=== PATIENT | female | born 1960 | race Caucasian/White ===

== ENCOUNTER → 2017-07-05 | Outpatient (CLI) | payer MEDICARE, OTHER ==
[2017-07-05 15:01] LABS: Anisocytosis Slight; CH 27.2; CHCM 30.9; HCT 40.9 % (34.0-46.0); HDW 2.64; HGB 12.9 gm/dL (11.4-16.0); Hypochromasia Slight; MCH 27.9 pg (25.0-35.0); MCHC 31.5 g/dL (31.0-37.0); MCV 88.5 fL (80.0-100.0); Mean Platelet Volume 7.2; RBC 4.62 m/uL (3.80-5.40); RDW 16.5 % (11.5-15.5); WBC 10.6 k/uL (3.8-10.6)
[2017-07-05 15:16] LABS: Anion Gap 11 mmol/L; Blood Urea Nitrogen 13 mg/dL (7-17); Carbon Dioxide 27 mmol/L (22-30); Chloride 102 mmol/L (98-107); Non-African American GFR(MDRD) >60 (>60 ml/min/1.73 sqM); Potassium 4.6 mmol/L (3.5-5.1); Sodium 140 mmol/L (137-145)
== END | disposition home or self-care (01) ==
LOC: LABPAT 14:07
PROVIDERS: ATTEND Internal Medicine Cardiovascular Disease
DX: Z01.812 Encounter for preprocedural laboratory examination (principal); I35.0 Nonrheumatic aortic (valve) stenosis
CPT/HCPCS: 36415; 80051; 82565; 84520; 85027

== ENCOUNTER 2017-07-13 10:52 | Day surgery (SDC) | payer MEDICARE, OTHER ==
[2017-07-08 13:29] VITALS: BMI 44.6
[2017-07-13] MEDS ORDERED: SODIUM CHLORIDE 0.9% 500 ML IV ONE (11:11)
[2017-07-13 11:15] VITALS: TEMP 98.7
[2017-07-13] MEDS ORDERED: fentaNYL (PF) 50 MCG/ML 2 ML AMP ONE (12:12)
[2017-07-13] MEDS ORDERED: MIDAZOLAM 2 MG/2 ML VIAL ONE (12:12)
[2017-07-13] MEDS ORDERED: BENZOCAINE SPRAY 1 SPRAY CAN MUCOUS MEM ONE (12:30)
[2017-07-13] MEDS ORDERED: MIDAZOLAM 2 MG/2 ML VIAL IV ONE (12:43)
[2017-07-13] MEDS ORDERED: fentaNYL (PF) 50 MCG/ML 2 ML AMP IV ONE (12:43)
[2017-07-13] MEDS: MIDAZOLAM 2 MG/2 ML VIAL IV ONE ×2 (12:45→12:47)
[2017-07-13 13:20] LABS: Glucose,Whole Blood 103 mg/dL (75-99)
[2017-07-13 13:43] VITALS: PULSE 82
[2017-07-13 13:58] VITALS: BP 149/65; RESP 16
--- NOTE | 2017-07-22 15:34 | ECHOT ---
TRANSESOPHAGEAL ECHOCARDIOGRAM TRANSESOPHAGEAL ECHOCARDIOGRAM REPORT: DATE OF SERVICE: 07/13/2017 This transesophageal echocardiogram was performed to evaluate the patient's ejection systolic murmur of aortic stenosis. Patient was given intravenous sedation with Versed and fentanyl and transesophageal echocardiogram was performed without any complications. Left ventricular chamber is normal in size with normal left ventricular systolic function. Mitral valve morphology is normal. Aortic valve is mildly thickened but aortic valve opening is normal and no valvular aortic stenosis was noted. The aortic valve is tricuspid. The tricuspid valve morphology is normal. The intra- atrial septum is intact and there is no evidence of PFO by saline contrast study. Color Doppler study shows evidence of mild degree of mitral regurgitation. That is with evidence of flow in the left ventricular outflow tract with a suggestion of a subaortic membrane. There is a minimal aortic regurgitation noted. Mild tricuspid regurgitation is noted. The transthoracic Doppler study again shows gradient of about 30-35 mmHg in the left ventricular outflow tract. FINAL IMPRESSION: 1. This study shows evidence of turbulence of flow in the left ventricular outflow tract with a gradient of about 30 mmHg in the left ventricular outflow tract. 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 There is no evidence of asymmetric septal hypertrophy. 2. Aortic valve is mildly thickened and is tricuspid valve. There is no evidence of valvular aortic stenosis. 3. Mitral and tricuspid valve morphology is normal. 4. Left ventricular systolic function is normal. 5. There is no evidence of any PFO. MMODL / IJN: [id number] /
== END 2017-07-13 14:18 | disposition home health service (06) ==
LOC: CATHCVL 10:52 → EEVIPCON 12:00 → CATHCVL 14:18
PROVIDERS: ATTEND Internal Medicine Cardiovascular Disease
DX: I08.3 Combined rheumatic disorders of mitral, aortic and tricuspid valves (principal); G47.33 Obstructive sleep apnea (adult) (pediatric); F17.210 Nicotine dependence, cigarettes, uncomplicated; E11.9 Type 2 diabetes mellitus without complications; Z79.4 Long term (current) use of insulin; Z79.84 Long term (current) use of oral hypoglycemic drugs; E78.5 Hyperlipidemia, unspecified; Z82.3 Family history of stroke; F20.9 Schizophrenia, unspecified; E66.9 Obesity, unspecified; Z68.41 Body mass index [BMI] 40.0-44.9, adult; Z79.890 Hormone replacement therapy; Z79.899 Other long term (current) drug therapy
CPT/HCPCS: 93312; 93320; 93325; J2250; J3010

== ENCOUNTER → 2018-11-16 | Outpatient (CLI) | payer MEDICARE ==
--- NOTE | 2018-11-17 09:42 | US ---
EXAMINATION TYPE: US pelvis complete transvag DATE OF EXAM: 11/16/2018 COMPARISON: NONE CLINICAL HISTORY: R68.89 Abnormal pelvic exam. Assess for possible ascites per order TECHNIQUE: Transvaginal (TV) and Transabdominal (TA) . Transabdominal sonographic images of the abd omen were acquired and pelvis TA US attempted but bladder not full. Transvaginal sonographic images were medically necessary to better assess the following anatomy: uterus and ovaries Date of LMP: approximately age 46 EXAM MEASUREMENTS: US exam is technically limited due to large body habitus at HT5'9 and WT 260lbs. Assessment for Ascites: no ascites is seen in any abdominal quadrant or pelvic area. Uterus: 5.6 x 3.5 x 3.3 cm Endometrial Stripe: not able to discern endometrium due to heterogeneous uterus Right Ovary: not seen Left Ovary: not seen 1. Uterus: Anteverted and heterogeneous 2. Endometrium: not discreet 3. Right Ovary: not seen 4. Left Ovary: not seen 5. Bilateral Adnexa: wnl 6. Posterior cul-de-sac: wnl IMPRESSION: 1. Limited examination due to patient body habitus. 2. Endometrial stripe is not able to be visualized. 3. No ascites evident.
== END | disposition home or self-care (01) ==
LOC: RADUSWWP 15:22
PROVIDERS: ATTEND Obstetrics & Gynecology
DX: R68.89 Other general symptoms and signs (principal)
CPT/HCPCS: 76830; 76856

== ENCOUNTER 2023-05-22 16:33 | Inpatient (IN) | payer MEDICARE, OTHER ==
[2023-05-22 18:22] LABS: Anisocytosis Slight; Basophils % (A) 0 %; Eosinophils # (A) 0.2 k/uL (0-0.7); Eosinophils % (A) 2 %; HCT 43.5 % (34.0-46.0); HGB 13.4 gm/dL (11.4-16.0); Hypochromasia Marked; Lymphocytes % (A) 7 %; MCH 28.6 pg (25.0-35.0); MCHC 30.8 g/dL (31.0-37.0); MCV 92.6 fL (80.0-100.0); Monocytes # (A) 0.6 k/uL (0-1.0); Monocytes % (A) 4 %; Neutrophils # (A) 12.6 k/uL (1.3-7.7); Neutrophils % (A) 86 %; Platelet Count 153 k/uL (150-450); RBC 4.69 m/uL (3.80-5.40); RDW 16.3 % (11.5-15.5); WBC 14.6 k/uL (3.8-10.6)
--- NOTE | 2023-05-22 18:24 | ED ---
General Adult HPI - General Chief complaint: Altered Mental Status Stated complaint: Altered Mental Status Time Seen by Provider: 05/22/23 17:41 Source: EMS, RN notes reviewed, old records reviewed, Caregiver Mode of arrival: EMS Limitations: altered mental status - History of Present Illness Initial comments: Patient is a 62-year-old female who presents emergency Department for altered mental status. Was seen here last week for similar symptoms. Is complaining of what sounds like weeks long of altered mental status with increased falls. Has a history of diabetes. Presents from nursing facility. Patient's guardian is the primary historian for The patient. States that symptoms all started after starting prednisone last month. Has been having waxing and waning symptoms since then. Patient is currently at her baseline for the last few weeks but this is not her normal baseline. She is alert and oriented times one to 2 currently with periods of lucency. Unknown if this is secondary to medication changes. Unknown if this is secondary to other etiology at this time. Presents for further evaluation at this time. Patient is unable to provide any history. She is not on blood thinners. - Related Data Home Medications Medication Instructions Recorded Confirmed Fenofibrate,Micronized 134 mg PO DAILY@0600 07/08/17 05/22/23 [Fenofibrate] Gabapentin [Neurontin] 300 mg PO BID 07/08/17 05/22/23 Multivitamins, Thera [Multivitamin 1 tab PO DAILY 07/08/17 05/22/23 (formulary)] cloZAPine [Clozaril] 100 mg PO DAILY@1400 07/08/17 05/22/23 cloZAPine [Clozaril] 300 tab PO HS@2100 07/08/17 05/22/23 Acetaminophen [Tylenol] 650 mg PO Q6H PRN 05/15/23 05/22/23 Atorvastatin [Lipitor] 10 mg PO HS 05/15/23 05/22/23 Budesonide [Pulmicort] 0.5 mg INHALATION RT-BID 05/15/23 05/22/23 Cholecalciferol [Vitamin D3 (25 50 mcg PO DAILY 05/15/23 05/22/23 Mcg = 1000 Iu)] Cinacalcet HCl 30 mg PO DAILY 05/15/23 05/22/23 Famotidine [Pepcid] 20 mg PO BID 05/15/23 05/22/23 Insulin Lispro [humaLOG Kwikpen] See Protocol SQ QID 05/15/23 05/22/23 Ipratropium-Albuterol Nebulize 3 ml INHALATION RT-Q6H 05/15/23 05/22/23 [Duoneb 0.5 mg-3 mg/3 ml Soln] Nevis Carbonate [Lithobid] 900 mg PO DAILY 05/15/23 05/22/23 Metoprolol Tartrate [Lopressor] 12.5 mg PO TID@0600,1200,2100 05/15/23 05/22/23 Montelukast Sodium 10 mg PO HS 05/15/23 05/22/23 amLODIPine [Norvasc] 7.5 mg PO DAILY 05/15/23 05/22/23 bisacodyL [Dulcolax] 10 mg RECTAL DAILY PRN 05/15/23 05/22/23 cloZAPine [Clozaril] 50 mg PO BID@1400,2100 05/15/23 05/22/23 Allergies Allergy/AdvReac Type Severity Reaction Status Date / Time No Known Allergies Allergy Verified 07/08/17 11:15 Review of Systems ROS Statement: Those systems with pertinent positive or pertinent negative responses have been documented in the HPI. ROS Other: All systems not noted in ROS Statement are negative. Past Medical History Past Medical History: Diabetes Mellitus Additional Past Medical History / Comment(s): hx pneumonia History of Any Multi-Drug Resistant Organisms: None Reported Additional Past Surgical History / Comment(s): no previous surgeries Past Anesthesia/Blood Transfusion Reactions: No Reported Reaction Past Psychological History: Schizophrenia Past Alcohol Use History: None Reported Past Drug Use History: None Reported - Past Family History Mother Family Medical History: No Reported History General Exam - General Exam Comments Initial Comments: General: Appears in no acute distress. HEAD: Normal with no signs of head trauma. EYES: PERRLA, EOMI, conjunctiva normal, no discharge. Pupils are 3 mm and equal bilaterally. ENT: Hearing grossly intact, normal oropharynx. RESPIRATORY: Clear breath sounds bilaterally. No wheezes, rales, or rhonchi. C/V: Regular rate and rhythm. S1 and S2 auscultated, mild bilateral pitting edema, peripheral pulses 2+ and intact throughout ABD: Abd is soft, nontender, nondistended EXT: Normal range of motion, no obvious deformity. Pelvis is stable. No midline spinal tenderness to palpation. SKIN: No rashes or lesions observed on exposed skin. NEURO: Alert and oriented x 1-2 which is below her baseline. Moving all 4 extremities. Exam is difficult to complete secondary to patient's confusion. No obvious deficits. Limitations: altered mental status Course Vital Signs 05/22/23 05/22/23 05/22/23 16:42 16:48 19:52 Temperature 98.7 F Pulse Rate 75 87 79 Respiratory 18 20 20 Rate Blood Pressure 130/64 108/47 137/61 O2 Sat by Pulse 95 95 96 Oximetry Medical Decision Making - Medical Decision Making Was pt. sent in by a medical professional or institution (, PA, [employer], urgent care, hospital, or alf...) When possible be specific @ -Sent from nursing facility Did you speak to anyone other than the patient for history (EMS, parent, family, police, friend...)? What history was obtained from this source @ -Patient's guardian who provided most of the patient's past medical history. Did you review nursing and triage notes (agree or disagree)? Why? @ -I reviewed and agree with nursing and triage notes Were old charts reviewed (outside hosp., previous admission, EMS record, old EKG, old radiological studies, urgent care reports/EKG's, alf records)? Report findings @ -Reviewed visit from last week and her EMR as well as patient's charts from nursing facility. Differential Diagnosis (chest pain, altered mental status, abdominal pain women, abdominal pain men, vaginal bleeding, weakness, fever, dyspnea, syncope, headache, dizziness, GI bleed, back pain, seizure, CVA, palpatations, mental health, musculoskeletal)? @ -Differential Altered Mental Status: Hypoglycemia, DKA, hypercapnia, ETOH, overdose, CO poisoning, trauma, myxedema c annabelle, HTN encephalopathy, infection, encephalitis, psychosis, intercranial hemorrhage, hepatic encephalopathy, meningitis, CVA, this is not meant to be an all-inclusive list EKG interpreted by me (3pts min.). @ -As above X-rays interpreted by me (1pt min.). @ -Chest x-ray, pelvis x-ray reveals no obvious injury, no obvious acute cardiopulmonary process. CT interpreted by me (1pt min.). @ -CT brain and C-spine reveals no obvious acute intracranial process or cervical spine injury. U/S interpreted by me (1pt. min.). @ -None done What testing was considered but not performed or refused? (CT, X-rays, U/S, labs)? Why? @ -None What meds were considered but not given or refused? Why? @ -None Did you discuss the management of the patient with other professionals (professionals i.e. Dr., PA, [employer], lab, RT, psych nurse, social science analyst, commissioned sales associate, teacher, infantry weapons officer, case assistant)? Give summary @ -Discussed with ANASTASIA Navarro of [facility] accepted the patient. Was smoking cessation discussed for >3mins.? @ -No Was critical care preformed (if so, how long)? @ -No Were there social determinants of health that impacted care today? How? (Homelessness, low income, unemployed, alcoholism, drug addiction, transportation, low edu. Level, literacy, decrease access to med. care, fdc, rehab)? @ -No Was there de-escalation of care discussed even if they declined (Discuss DNR or withdrawal of care, Hospice)? DNR status @ -No What co-morbidities impacted this encounter? (DM, HTN, Smoking, COPD, CAD, Cancer, CVA, ARF, Chemo, Hep., AIDS, mental health diagnosis, sleep apnea, morbid obesity)? @ -None Was patient admitted / discharged? Hospital course, mention meds given and route, prescriptions, significant lab abnormalities, going to OR and other pertinent info. @ -Based on the patient's presentation and physical exam, presents with altered mental status. Unknown etiology. I do suspect medication related versus possible infectious. We will obtain broad workup including CT imaging considering she said multiple falls. Patient's guardian was in agreement this plan. Vital signs are within acceptable limits. Patient's labs are remarkable for a leukocytosis of 14 of unknown significance. Remainder of the labs are unremarkable. However urinalysis and VBG are still pending at this time. Imaging shows no signs of injury or acute process. EKG is unremarkable. At this time I would like to admit the patient and she is still confused. I spoke with the admitting team, ANASTASIA Navarro [facility] accepted the patient. Patient admitted in stable condition. Consulted neurology for evaluation. Undiagnosed new problem with uncertain prognosis? @ -No Drug Therapy requiring intensive monitoring for toxicity (Heparin, Nitro, Insulin, Cardizem)? @ -No Were any procedures done? @ -No Diagnosis/symptom? @ -Altered mental status of unknown etiology Acute, or Chronic, or Acute on Chronic? @ -Acute on chronic Uncomplicated (without systemic symptoms) or Complicated (systemic symptoms)? @ -Complicated Side effects of treatment? @ -No Exacerbation, Progression, or Severe Exacerbation? @ -No Poses a threat to life or bodily function? How? (Chest pain, [place], [place], pneumonia, PE, COPD, DKA, ARF, appy, cholecystitis, CVA, Diverticulitis, Homicidal, Suicidal, threat to staff... and all critical care pts) @ -Yes - Lab Data Result diagrams: 05/22/23 17:57 05/22/23 17:57 Lab Results 05/22/23 05/22/23 05/22/23 Range/Units 17:57 17:57 17:57 WBC 14.6 H (3.8-10.6) k/uL RBC 4.69 (3.80-5.40) m/uL Hgb 13.4 (11.4-16.0) gm/dL Hct 43.5 (34.0-46.0) % MCV 92.6 (80.0-100.0) fL MCH 28.6 (25.0-35.0) pg MCHC 30.8 L (31.0-37.0) g/dL RDW 16.3 H (11.5-15.5) % Plt Count 153 (150-450) k/uL MPV 9.0 Neutrophils % 86 % Lymphocytes % 7 % Monocytes % 4 % Eosinophils % 2 % Basophils % 0 % Neutrophils # 12.6 H (1.3-7.7) k/uL Lymphocytes # 1.0 (1.0-4.8) k/uL Monocytes # 0.6 (0-1.0) k/uL Eosinophils # 0.2 (0-0.7) k/uL Basophils # 0.0 (0-0.2) k/uL Hypochromasia Marked Anisocytosis Slight PT 12.0 (9.0-12.0) sec INR 1.2 H (<1.2) APTT 23.0 (22.0-30.0) sec Sodium 138 (137-145) mmol/L Potassium 4.1 (3.5-5.1) mmol/L Chloride 104 (98-107) mmol/L Carbon Dioxide 29 (22-30) mmol/L Anion Gap 5 mmol/L BUN 11 (7-17) mg/dL Creatinine 0.79 (0.52-1.04) mg/dL Est GFR (CKD-EPI)AfAm >90 (>60 ml/min/1.73 sqM) Est GFR (CKD-EPI)NonAf 81 (>60 ml/min/1.73 sqM) Glucose 151 H (74-99) mg/dL Calcium 8.4 (8.4-10.2) mg/dL Total Bilirubin 0.6 (0.2-1.3) mg/dL AST 29 (14-36) U/L ALT 33 (4-34) U/L Alkaline Phosphatase 80 (38-126) U/L Ammonia (<30) umol/L Troponin I (0.000-0.034) ng/mL NT-Pro-B Natriuret Pep 371 pg/mL Total Protein 5.6 L (6.3-8.2) g/dL Albumin 3.3 L (3.5-5.0) g/dL Serum Alcohol <10 mg/dL Influenza Type A (PCR) (Not Detectd) Influenza Type B (PCR) (Not Detectd) RSV (PCR) (Not Detectd) SARS-CoV-2 (PCR) (Not Detectd) 05/22/23 05/22/23 05/22/23 Range/Units 17:57 17:57 19:56 WBC (3.8-10.6) k/uL RBC (3.80-5.40) m/uL Hgb (11.4-16.0) gm/dL Hct (34.0-46.0) % MCV (80.0-100.0) fL MCH (25.0-35.0) pg MCHC (31.0-37.0) g/dL RDW (11.5-15.5) % Plt Count (150-450) k/uL MPV Neutrophils % % Lymphocytes % % Monocytes % % Eosinophils % % Basophils % % Neutrophils # (1.3-7.7) k/uL Lymphocytes # (1.0-4.8) k/uL Monocytes # (0-1.0) k/uL Eosinophils # (0-0.7) k/uL Basophils # (0-0.2) k/uL Hypochromasia Anisocytosis PT (9.0-12.0) sec INR (<1.2) APTT (22.0-30.0) sec Sodium (137-145) mmol/L Potassium (3.5-5.1) mmol/L Chloride (98-107) mmol/L Carbon Dioxide (22-30) mmol/L Anion Gap mmol/L BUN (7-17) mg/dL Creatinine (0.52-1.04) mg/dL Est GFR (CKD-EPI)AfAm (>60 ml/min/1.73 sqM) Est GFR (CKD-EPI)NonAf (>60 ml/min/1.73 sqM) Glucose (74-99) mg/dL Calcium (8.4-10.2) mg/dL Total Bilirubin (0.2-1.3) mg/dL AST (14-36) U/L ALT (4-34) U/L Alkaline Phosphatase (38-126) U/L Ammonia 12 (<30) umol/L Troponin I 0.019 (0.000-0.034) ng/mL NT-Pro-B Natriuret Pep pg/mL Total Protein (6.3-8.2) g/dL Albumin (3.5-5.0) g/dL Serum Alcohol mg/dL Influenza Type A (PCR) Not Detected (Not Detectd) Influenza Type B (PCR) Not Detected (Not Detectd) RSV (PCR) Not Detected (Not Detectd) SARS-CoV-2 (PCR) Not Detected (Not Detectd) - EKG Data -: EKG Interpreted by Me EKG Comments: 12-lead Electrocardiogram Interpretation Note EKG was reviewed and interpreted by myself. 12-lead ECG performed at 1643 is interpreted by me as revealing normal sinus rhythm at a rate of 77 beats per minute. Left axis deviation. MT interval is 195 ms, QRS duration is 130 ms, QTc is 459 ms.. There were no ST or T wave abnormalities to suggest myocardial ischemia or injury. R wave progression across the precordium was satisfactory. By my interpretation this EKG is non-diagnostic for acute ischemia. Disposition Clinical Impression: Altered mental status Disposition: ADMITTED IP TO THIS HOSP Condition: Serious Time of Disposition: 20:35
[2023-05-22 18:31] LABS: ALT 33 U/L (4-34); AST 29 U/L (14-36); African American GFR (CKD) >90 (>60 ml/min/1.73 sqM); Albumin 3.3 g/dL (3.5-5.0); Alcohol <10 mg/dL; Alkaline Phosphatase 80 U/L (38-126); Anion Gap 5 mmol/L; Blood Urea Nitrogen 11 mg/dL (7-17); Calcium 8.4 mg/dL (8.4-10.2); Carbon Dioxide 29 mmol/L (22-30); Chloride 104 mmol/L (98-107); Glucose 151 mg/dL (74-99); Non-African American GFR(CKD) 81 (>60 ml/min/1.73 sqM); Potassium 4.1 mmol/L (3.5-5.1); Sodium 138 mmol/L (137-145); Total Bilirubin 0.6 mg/dL (0.2-1.3); Total Protein 5.6 g/dL (6.3-8.2)
[2023-05-22 18:38] LABS: NT-Pro-B-Type Natriuretic Pept 371 pg/mL
[2023-05-22 18:39] LABS: INR 1.2 (<1.2)
--- NOTE | 2023-05-22 19:45 | CT ---
EXAMINATION TYPE: CT brain cspine wo con CT DLP: 1829.8 mGycm, Automated exposure control for dose reduction was used. DATE OF EXAM: 05/22/2023 7:39 PM COMPARISON: None.. CLINICAL INDICATION:Female, 62 years old with history of Altered mental status; Altered mental status TECHNIQUE: Brain: Multiple axial CT images of the brain were obtained without IV contrast. Cspine: Axial CT images from the skull base to the inferior aspect of T2 we obtained without intraven ous contrast. Coronal and sagittal reformatted images were also reviewed. FINDINGS: Brain: Extra-axial spaces: No abnormal extra-axial fluid collections. Ventricular system: Within normal limits Cerebral parenchyma: No acute intraparenchymal hemorrhage or mass effect. The kumar-white junction is well differentiated. Scattered hypoattenuating areas are seen within the white matter. Cerebellum: Unremarkable. Mass effect: No evidence of midline shift. Intracranial vasculature: Atherosclerotic calcifications of the intracranial vessels. Soft tissues: Normal. Calvarium/osseous structures: No depressed skull fracture. Benign hyperostosis frontalis noted. Paranasal sinuses and mastoid air cells: Clear. Visualized orbits: Bilateral proptosis. Cervical spine: Fracture: None. Osseous structures: Unremarkable Vertebral alignment: Within normal limits. Spinal canal/Neural Foramina: No evidence of significant spinal canal narrowing. No evidence for sign ificant neural foraminal stenosis. Neck soft tissues: Prevertebral soft tissues are within normal limits. Other: The airway is patent. The lung apices are clear. IMPRESSION: 1. No acute intracranial process. 2. Nonspecific white matter changes, likely secondary to chronic small vessel ischemic disease. 3. Bilateral proptosis. 4. No evidence of cervical spine fracture.
--- NOTE | 2023-05-22 19:48 | XR ---
EXAMINATION TYPE: XR chest 1V DATE OF EXAM: 05/22/2023 7:40 PM COMPARISON: Chest radiographs from 05/15/2023 TECHNIQUE: XR chest 1V Frontal view of the chest. CLINICAL INDICATION:Female, 62 years old with history of altered mental status; FINDINGS: Lungs/Pleura: There is no evidence of pleural effusion, focal consolidation, or pneumothorax. Pulmonary vascularity: Mild pulmonary vascular congestion. Heart/mediastinum: Cardiomediastinal silhouette is enlarged and stable. Musculoskeletal: No acute osseous pathology. Left shoulder arthropathy. IMPRESSION: Cardiomegaly and mild pulmonary vascular congestion. Correlate with BNP for congestive heart failure.
--- NOTE | 2023-05-22 19:49 | XR ---
EXAMINATION TYPE: XR pelvis AP view DATE OF EXAM: 05/22/2023 7:40 PM INDICATION: Patient age:Female; 62 years old; Reason for study: fall; [facility]. COMPARISON: None TECHNIQUE: The pelvis was examined in a single projection. FINDINGS: There is no evidence of fracture or dislocation. There is no soft tissue abnormality. No a bnormal calcifications are present. IMPRESSION: No acute osseous pathology.
[2023-05-22] MEDS ORDERED: NALOXONE 0.4 MG/ML 1 ML VIAL IV PRN (20:41)
[2023-05-22] MEDS ORDERED: LORazepam 2 MG/ML INJ IV STA (20:44)
[2023-05-22] MEDS ORDERED: DEXTROSE 50% SYRINGE 50 ML IVP PRN ×2 (21:19)
[2023-05-22] MEDS ORDERED: IPRATROPIUM-ALBUTEROL 3 ML NEB INHALATION PRN (21:20)
[2023-05-22 21:22] LABS: VBG PH 7.34 (7.31-7.41)
[2023-05-22 21:45] LABS: Appearance,Urine Clear (Clear); Color,Urine Yellow; PH, Urine 6.5 (5.0-8.0)
[2023-05-22 21:46] LABS: Bilirubin,Urine Negative (Negative); Blood,Urine Negative (Negative); Glucose,Urine (UA) Negative (Negative); Ketones,Urine Negative (Negative); Leukocyte Esterase,Urine Negative (Negative); Nitrite,Urine Negative (Negative); Protein,Urine Trace (Negative); Urobilinogen,Urine 0.2 mg/dL (<2.0)
[2023-05-22 21:51] LABS: Amphetamine Screen,Urine Not Detected (NotDetected); Barbiturate Screen,Urine Not Detected (NotDetected); Benzodiazepines Screen,Urine Not Detected (NotDetected); Cocaine Screen,Urine Not Detected (NotDetected); Methadone Screen, Urine Not Detected (NotDetected); Opiate Screen,Urine Not Detected (NotDetected); Oxycodone Screen, Urine Not Detected (NotDetected); Phencyclidine Screen,Urine Not Detected (NotDetected); Tricyclic Antidepressant,Urine Detected (NotDetected); Urn Cannabinoid Scrn Not Detected (NotDetected)
[2023-05-23] MEDS: METOPROLOL TARTRATE 12.5 MG TAB PO SCH ×4 (00:02→21:14)
[2023-05-23] MEDS ORDERED: IPRATROPIUM-ALBUTEROL 3 ML NEB INHALATION SCH (02:00)
[2023-05-23 06:19] LABS: Glucose,Whole Blood 181 mg/dL (70-110)
[2023-05-23] MEDS: INSULIN ASPART (NovoLOG) 100 UNIT/ML VIAL SQ SCH ×3 (06:52→17:00)
[2023-05-23] MEDS: SODIUM CHLORIDE 0.9% 1,000 ML IV SCH ×2 (06:53→07:59)
[2023-05-23] MEDS: amLODIPine 2.5 MG TAB PO SCH (07:58)
[2023-05-23] MEDS ORDERED: FAMOTIDINE 20 MG TAB PO SCH (09:00)
[2023-05-23] MEDS ORDERED: LITHIUM CARBONATE 300 MG CAP PO SCH (09:00)
[2023-05-23] MEDS: BUDESONIDE 0.5 MG/2 ML NEBU INHALATION SCH ×2 (09:01→21:11)
[2023-05-23] MEDS: IPRATROPIUM-ALBUTEROL 3 ML NEB INHALATION SCH ×4 (09:01→21:11)
[2023-05-23 10:00] LABS: Basophils # (A) 0.04 X 10*3/uL (0.00-0.10); Basophils % (A) 0.3 %; Eosinophils % (A) 1.7 %; HCT 45.2 % (37.2-46.3); HGB 13.1 d/dL (12.0-15.0); Lymphocytes % (A) 6.7 %; MCH 27.2 pg (27.0-32.0); MCV 93.8 FL (80.0-97.0); Mean Platelet Volume 11.7 FL (9.5-12.2); Monocytes # (A) 0.88 X 10*3/uL (0.20-1.00); Monocytes % (A) 7.3 %; NRBC Per 100 WBC 0 X 10*3/uL (0.00-0.01); Neutrophils # (A) 10.04 X 10*3/uL (1.80-7.70); Neutrophils % (A) 83.5 %; Platelet Count 152 X 10*3/uL (140-440); RBC 4.82 X 10*6/uL (4.10-5.20); RDW 17.2 % (11.5-14.5); WBC 12.02 X 10*3/uL (4.50-10.00)
[2023-05-23 10:07] LABS: BUN/Creat Ratio 9.88 Ratio (12.00-20.00); Blood Urea Nitrogen 7.9 mg/dL (9.0-27.0); Calcium 8.5 mg/dL (8.7-10.3); Carbon Dioxide 27.2 mmol/L (21.6-31.8); Chloride 107 mmol/L (96-109); Glucose 168 mg/dL (70-110); Potassium 4.2 mmol/L (3.5-5.5); Sodium 143 mmol/L (135-145)
[2023-05-23 11:45] LABS: Glucose,Whole Blood 147 mg/dL (70-110)
[2023-05-23] MEDS ORDERED: bisacodyL 10 MG SUPP RECTAL PRN (13:07)
[2023-05-23] MEDS ORDERED: FUROSEMIDE 10 MG/ML 4 ML VIAL IV STA (13:12)
--- NOTE | 2023-05-23 13:54 | HP ---
HISTORY AND PHYSICAL CHIEF COMPLAINT: Change in mental status. HISTORY OF PRESENT ILLNESS: This is a 62-year-old woman with a past medical history of multiple medical problems including asthma, diabetes mellitus, history of paranoid schizophrenia and acute respiratory failure recently. The patient is in ECF at this time. The patient has had change in mental status which is correlated to starting the prednisone or Xolair according to the caregiver. Currently, the patient is barely arousable and confused, and the patient has some occasional abnormal movements. There is no history of any fever, rigors, or chills. PAST MEDICAL HISTORY: Reviewed, include recent respiratory failure as well as asthma. Rest of history and rest of chart are also reviewed. HOME MEDICATIONS: Reviewed, on clozapine. Dose and rest of medications reviewed. ALLERGIES: None. Family history, social history, and review of systems could not be taken because of the patient's change in mental status. PHYSICAL EXAMINATION: VITAL SIGNS: Pulse 71, blood pressure 150/70, respirations 20. HEENT: Conjunctivae normal. NECK: No jugular venous distention. CARDIOVASCULAR: S1, S2. RESPIRATIONS: Breath sounds diminished at the bases. A few scattered rhonchi. ABDOMEN: Soft, obese. LEGS: No edema. No swelling. NERVOUS SYSTEM: No focal deficit. SKIN: No ulcer, rash, bleeding. JOINTS: No active deforming arthropathy. LABORATORY DATA: WBC 12.2. Rest of the labs are noted. ASSESSMENT: 1. Change in mental status, possible metabolic encephalopathy, possibly drug-induced toxic encephalopathy. 2. Increased WBC. 3. History of asthma. 4. History of recent respiratory failure. 5. History of paranoid schizophrenia. 6. History of pneumonia. RECOMMENDATIONS AND DISCUSSION: This is a 62-year-old woman, who presented with multiple complex medical issues. We will monitor the patient closely. I would recommend to hold some of the psychiatric medications and obtain psychiatric evaluation. Check lithium and gabapentin levels as soon as possible. Otherwise, continue the bronchodilators. Neurology consultation. I would also recommend Infectious Disease consult/evaluation because the WBC is elevated. We will also obtain cultures as well. Once again, the prognosis is extremely guarded because of the multiple complex medical issues, which I discussed at length with the caregiver. Further recommendations to follow. X-rays and CAT scan reviewed personally. We will repeat a chest x-ray as well after a dose of Lasix. MMODL / IJN: [id number] /
--- NOTE | 2023-05-23 15:58 | P.CNNES ---
History of Present Illness Consult date: 05/23/23 History of Present Illness: The patient is a 62-year-old female who is seen in neurologic consultation on May 23, 2023, in collaboration with Shy Leigh, via teleneurology. History is obtained from the nurse at the bedside as well as the chart. The patient is unable to provide any history. The patient was reportedly brought into the hospital because of increasing confusion over the past couple of months. The patient is typically highly functional. She has schizophrenia however reportedly is able to care for herself. Per the nurse, as told by the guardian, the patient's mental status began to change after she was prescribed prednisone and Xolair for respiratory difficulty secondary to asthma. The patient has reportedly been restless and weak. In the emergency department, CT scan of the brain was performed. There is no evidence of acute hemorrhage or infarct. Initial laboratory evaluation was normal, With the exception of the drug screen positive for tricyclic antidepressants. The patient's list of home medications does not include any tricyclic antidepressants. Past Medical History Past Medical History: Asthma, Diabetes Mellitus, Pneumonia Additional Past Medical History / Comment(s): Respiratory failure May 01 2023, paranoid schizophrenia History of Any Multi-Drug Resistant Organisms: None Reported Past Surgical History: No Surgical Hx Reported Additional Past Surgical History / Comment(s): no previous surgeries Past Anesthesia/Blood Transfusion Reactions: No Reported Reaction Past Psychological History: Schizophrenia Additional Psychological History / Comment(s): Paranoid schizophrenia Smoking Status: Former smoker Past Alcohol Use History: None Reported Past Drug Use History: None Reported - Past Family History Mother History Unknown: Yes Family Medical History: No Reported History Father History Unknown: Yes Medications and Allergies Home Medications Medication Instructions Recorded Confirmed Type Fenofibrate,Micronized 134 mg PO DAILY@0600 07/08/17 05/22/23 History [Fenofibrate] Gabapentin [Neurontin] 300 mg PO BID 07/08/17 05/22/23 History Multivitamins, Thera [Multivitamin 1 tab PO DAILY 07/08/17 05/22/23 History (formulary)] cloZAPine [Clozaril] 100 mg PO DAILY@1400 07/08/17 05/22/23 History cloZAPine [Clozaril] 300 tab PO HS@2100 07/08/17 05/22/23 History Acetaminophen [Tylenol] 650 mg PO Q6H PRN 05/15/23 05/22/23 History Atorvastatin [Lipitor] 10 mg PO HS 05/15/23 05/22/23 History Budesonide [Pulmicort] 0.5 mg INHALATION RT-BID 05/15/23 05/22/23 History Cholecalciferol [Vitamin D3 (25 50 mcg PO DAILY 05/15/23 05/22/23 History Mcg = 1000 Iu)] Cinacalcet HCl 30 mg PO DAILY 05/15/23 05/22/23 History Famotidine [Pepcid] 20 mg PO BID 05/15/23 05/22/23 History Insulin Lispro [humaLOG Kwikpen] See Protocol SQ QID 05/15/23 05/22/23 History Ipratropium-Albuterol Nebulize 3 ml INHALATION RT-Q6H 05/15/23 05/22/23 History [Duoneb 0.5 mg-3 mg/3 ml Soln] [place] Carbonate [Lithobid] 900 mg PO DAILY 05/15/23 05/22/23 History Metoprolol Tartrate [Lopressor] 12.5 mg PO TID@0600,1200,2100 05/15/23 05/22/23 History Montelukast Sodium 10 mg PO HS 05/15/23 05/22/23 History amLODIPine [Norvasc] 7.5 mg PO DAILY 05/15/23 05/22/23 History bisacodyL [Dulcolax] 10 mg RECTAL DAILY PRN 05/15/23 05/22/23 History cloZAPine [Clozaril] 50 mg PO BID@1400,2100 05/15/23 05/22/23 History Allergies Allergy/AdvReac Type Severity Reaction Status Date / Time No Known Allergies Allergy Verified 07/08/17 11:15 Physical Examination - Vital Signs Vital Signs: Vital Signs Temp Pulse Pulse Resp BP BP Pulse Ox 05/23/23 15:30 88 05/23/23 13:04 71 05/23/23 11:35 71 20 155/79 96 05/23/23 09:17 88 05/23/23 09:01 86 97 05/23/23 07:53 98.2 F 85 20 135/85 95 05/23/23 06:12 82 20 172/68 92 L 05/23/23 02:00 97.5 F L 83 22 141/83 96 07/29/23 19:52 79 20 137/61 96 05/22/23 16:48 87 20 108/47 95 05/22/23 16:42 98.7 F 75 18 130/64 95 Intake and Output 05/23/23 05/23/23 05/23/23 06:59 14:59 22:59 Intake Total 836 Balance 836 Intake: Oral 836 Other: Voiding Method Diaper Incontinent # Voids 4 Weight 147.418 kg Gen.: The patient is reclining in the bed. She is well-nourished, well- developed and in no acute distress. HEENT: Head is atraumatic, normocephalic. Fundus not visualized. There is no scleral icterus. Mucous membranes are moist. Neck: Supple, without carotid bruits Heart: Regular rate and rhythm Lungs: Clear to auscultation Extremities: Without edema Neurological examination Mental status: The patient is able to state and spell her first and last names. When asked to state her birthdate, the patient counts from 1-20, until I cut her off. The patient's speech is at times unintelligible. There is word salad. The patient is able to follow some simple commands, intermittently, the patient is able to raise her right arm from the bed, when asked. She wiggles her toes. Cranial nerves: Pupils are equal at 2 mm and questionably reactive. There is a possible left visual field deficit. The patient does not blink to visual threat however when the examiner moves to the left side of the bed, the patient is able to turn to the left and her eyes to the left as well. There is no obvious facial asymmetry. Hearing is grossly intact. Uvula and palate are midline. Shoulder shrug is symmetric. Tongue protrudes midline. Motor: The patient is able to move all 4 extremities. She has difficulty co operating with formal strength testing. There are noted intermittent clonic movements of the extremities. Deep tendon reflexes: 2+/4+ throughout. Plantar responses are flexor bilaterally. There is no evidence of clonus at the ankles. Coordination: Unable to be assessed at this time Sensation: Grossly intact to touch and noxious stimulation Gait: Not assessed Results - Laboratory Findings Comments: [place] level was found to be elevated at 1.8 CBC and BMP: 05/23/23 06:34 05/23/23 06:34 Abnormal Lab Findings: Abnormal Labs 05/22/23 05/22/23 05/22/23 17:57 17:57 17:57 WBC 14.6 H MCHC 30.8 L RDW 16.3 H Neutrophils # 12.6 H Lymphocytes # INR 1.2 H VBG pCO2 BUN BUN/Creatinine Ratio Glucose 151 H POC Glucose (mg/dL) Hemoglobin A1c Calcium Total Protein 5.6 L Albumin 3.3 L Urine Protein U Tricyclic Antidepress 05/22/23 05/22/23 05/23/23 21:09 21:15 06:18 WBC MCHC RDW Neutrophils # Lymphocytes # INR VBG pCO2 54 H BUN BUN/Creatinine Ratio Glucose POC Glucose (mg/dL) 181 H Hemoglobin A1c Calcium Total Protein Albumin Urine Protein Trace H U Tricyclic Antidepress Detected H 05/23/23 05/23/23 05/23/23 06:34 06:34 06:34 WBC 12.02 H MCHC 29.0 L RDW 17.2 H Neutrophils # 10.04 H Lymphocytes # 0.80 L INR VBG pCO2 BUN 7.9 L BUN/Creatinine Ratio 9.88 L Glucose 168 H POC Glucose (mg/dL) Hemoglobin A1c 7.9 H Calcium 8.5 L Total Protein Albumin Urine Protein U Tricyclic Antidepress 05/23/23 11:34 WBC MCHC RDW Neutrophils # Lymphocytes # INR VBG pCO2 BUN BUN/Creatinine Ratio Glucose POC Glucose (mg/dL) 147 H Hemoglobin A1c Calcium Total Protein Albumin Urine Protein U Tricyclic Antidepress Assessment and Plan Assessment: 1. The patient has signs of toxic encephalopathy likely secondary to elevated lithium level 2. Reported history of schizophrenia being treated with Clozaril and lithium 3. History of asthma 4. History of diabetes mellitus Plan: 1. Hold lithium dosing and recheck level 2. Consult psychiatry for further treatment of schizophrenia 3. EEG will be ordered Thank you for allowing us to participate in the care of this patient. Dr. Jorge Alegria will assume neurologic coverage of this patient has of May 24, 2023 Time with Patient: Greater than 30 (50 minutes were spent in caring for this patient today including obtaining history, examining the patient, reviewing imaging, chart documentation, labs, placing orders and creating this note)
[2023-05-23 16:59] LABS: Glucose,Whole Blood 197 mg/dL (70-110)
[2023-05-23 20:09] LABS: Glucose,Whole Blood 164 mg/dL (70-110)
[2023-05-23] MEDS: ATORVASTATIN 10 MG TAB PO SCH (21:14)
--- NOTE | 2023-05-23 22:15 | P.CONS ---
History of Present Illness - Reason for Consult Consult date: 05/23/23 - History of Present Illness Patient is a 62-year-old female with a past medical history significant diabetes mellitus currently prison resident the patient has been brought into the hospital for evaluation of mental status changes symptom has been going on for a few days and patient also have increased falls which has been attributed to the patient being started on prednisone last month on arrival to the ER patient was afebrile and no fever has been recorded subsequently patient was not tachycardic or hypotensive patient was mildly hypoxic and is currently on 3 L nasal cannula oxygen patient did have vital of 12.0 to with left shift creatinine was normal liver exams are normal urine was negative urine testing was positive for tricyclic influenza RSV and COVID testing was negative patient did have a chest x-ray cardiomegaly mild pulmonary vascular congestion pelvis x-ray no acute bony abnormality infectious was consulted because of elevated white count most information has been obtained from review the chart and the patient has some elevated good historian she was unable to tell me where she was however and specifically the patient having any headache or URI symptoms no chest pain shortness of breath or cough and no diarrhea has been reported Past Medical History Past Medical History: Asthma, Diabetes Mellitus, Pneumonia Additional Past Medical History / Comment(s): Respiratory failure May 01 2023, paranoid schizophrenia History of Any Multi-Drug Resistant Organisms: None Reported Past Surgical History: No Surgical Hx Reported Additional Past Surgical History / Comment(s): no previous surgeries Past Anesthesia/Blood Transfusion Reactions: No Reported Reaction Past Psychological History: Schizophrenia Additional Psychological History / Comment(s): Paranoid schizophrenia Smoking Status: Former smoker Past Alcohol Use History: None Reported Past Drug Use History: None Reported - Past Family History Mother History Unknown: Yes Family Medical History: No Reported History Father History Unknown: Yes Medications and Allergies Home Medications Medication Instructions Recorded Confirmed Type Fenofibrate,Micronized 134 mg PO DAILY@0600 07/08/17 05/22/23 History [Fenofibrate] Gabapentin [Neurontin] 300 mg PO BID 07/08/17 05/22/23 History Multivitamins, Thera [Multivitamin 1 tab PO DAILY 07/08/17 05/22/23 History (formulary)] cloZAPine [Clozaril] 100 mg PO DAILY@1400 07/08/17 05/22/23 History cloZAPine [Clozaril] 300 tab PO HS@2100 07/08/17 05/22/23 History Acetaminophen [Tylenol] 650 mg PO Q6H PRN 05/15/23 05/22/23 History Atorvastatin [Lipitor] 10 mg PO HS 05/15/23 05/22/23 History Budesonide [Pulmicort] 0.5 mg INHALATION RT-BID 05/15/23 05/22/23 History Cholecalciferol [Vitamin D3 (25 50 mcg PO DAILY 05/15/23 05/22/23 History Mcg = 1000 Iu)] Cinacalcet HCl 30 mg PO DAILY 05/15/23 05/22/23 History Famotidine [Pepcid] 20 mg PO BID 05/15/23 05/22/23 History Insulin Lispro [humaLOG Kwikpen] See Protocol SQ QID 05/15/23 05/22/23 History Ipratropium-Albuterol Nebulize 3 ml INHALATION RT-Q6H 05/15/23 05/22/23 History [Duoneb 0.5 mg-3 mg/3 ml Soln] [place] Carbonate [Lithobid] 900 mg PO DAILY 05/15/23 05/22/23 History Metoprolol Tartrate [Lopressor] 12.5 mg PO TID@0600,1200,2100 05/15/23 05/22/23 History Montelukast Sodium 10 mg PO HS 05/15/23 05/22/23 History amLODIPine [Norvasc] 7.5 mg PO DAILY 05/15/23 05/22/23 History bisacodyL [Dulcolax] 10 mg RECTAL DAILY PRN 05/15/23 05/22/23 History cloZAPine [Clozaril] 50 mg PO BID@1400,2100 05/15/23 05/22/23 History Allergies Allergy/AdvReac Type Severity Reaction Status Date / Time No Known Allergies Allergy Verified 07/08/17 11:15 Physical Exam Vitals: Vital Signs Temp Pulse Pulse Resp BP BP Pulse Ox 05/23/23 11:35 71 20 155/79 96 05/23/23 09:17 88 05/23/23 09:01 86 97 05/23/23 07:53 98.2 F 85 20 135/85 95 05/23/23 06:12 82 20 172/68 92 L 05/23/23 02:00 97.5 F L 83 22 141/83 96 05/22/23 19:52 79 20 137/61 96 05/22/23 16:48 87 20 108/47 95 05/22/23 16:42 98.7 F 75 18 130/64 95 Intake and Output 05/22/23 05/23/23 05/23/23 22:59 06:59 14:59 Intake Total 718 Balance 718 Intake: Oral 718 Other: Voiding Method Incontinent External Catheter # Voids 4 Weight 147.418 kg 147.418 kg Results CBC & Chem 7: 05/24/23 08:45 05/25/23 08:12 Labs: Abnormal Lab Results - Last 24 Hours (Table) 05/22/23 05/22/23 05/22/23 Range/Units 17:57 17:57 17:57 WBC 14.6 H (3.8-10.6) k/uL MCHC 30.8 L (31.0-37.0) g/dL RDW 16.3 H (11.5-15.5) % Neutrophils # 12.6 H (1.3-7.7) k/uL Lymphocytes # (0.90-5.00) X 10*3/uL INR 1.2 H (<1.2) VBG pCO2 (37-51) mmHg BUN (9.0-27.0) mg/dL BUN/Creatinine Ratio (12.00-20.00) Ratio Glucose 151 H (74-99) mg/dL POC Glucose (mg/dL) (70-110) mg/dL Hemoglobin A1c (<=6.0) % Calcium (8.7-10.3) mg/dL Total Protein 5.6 L (6.3-8.2) g/dL Albumin 3.3 L (3.5-5.0) g/dL Urine Protein (Negative) U Tricyclic Antidepress (NotDetected) 05/22/23 05/22/23 05/23/23 Range/Units 21:09 21:15 06:18 WBC (3.8-10.6) k/uL MCHC (31.0-37.0) g/dL RDW (11.5-15.5) % Neutrophils # (1.3-7.7) k/uL Lymphocytes # (0.90-5.00) X 10*3/uL INR (<1.2) VBG pCO2 54 H (37-51) mmHg BUN (9.0-27.0) mg/dL BUN/Creatinine Ratio (12.00-20.00) Ratio Glucose (74-99) mg/dL POC Glucose (mg/dL) 181 H (70-110) mg/dL Hemoglobin A1c (<=6.0) % Calcium (8.7-10.3) mg/dL Total Protein (6.3-8.2) g/dL Albumin (3.5-5.0) g/dL Urine Protein Trace H (Negative) U Tricyclic Antidepress Detected H (NotDetected) 05/23/23 05/23/23 05/23/23 Range/Units 06:34 06:34 06:34 WBC 12.02 H (3.8-10.6) k/uL MCHC 29.0 L (31.0-37.0) g/dL RDW 17.2 H (11.5-15.5) % Neutrophils # 10.04 H (1.3-7.7) k/uL Lymphocytes # 0.80 L (0.90-5.00) X 10*3/uL INR (<1.2) VBG pCO2 (37-51) mmHg BUN 7.9 L (9.0-27.0) mg/dL BUN/Creatinine Ratio 9.88 L (12.00-20.00) Ratio Glucose 168 H (74-99) mg/dL POC Glucose (mg/dL) (70-110) mg/dL Hemoglobin A1c 7.9 H (<=6.0) % Calcium 8.5 L (8.7-10.3) mg/dL Total Protein (6.3-8.2) g/dL Albumin (3.5-5.0) g/dL Urine Protein (Negative) U Tricyclic Antidepress (NotDetected) 05/23/23 Range/Units 11:34 WBC (3.8-10.6) k/uL MCHC (31.0-37.0) g/dL RDW (11.5-15.5) % Neutrophils # (1.3-7.7) k/uL Lymphocytes # (0.90-5.00) X 10*3/uL INR (<1.2) VBG pCO2 (37-51) mmHg BUN (9.0-27.0) mg/dL BUN/Creatinine Ratio (12.00-20.00) Ratio Glucose (74-99) mg/dL POC Glucose (mg/dL) 147 H (70-110) mg/dL Hemoglobin A1c (<=6.0) % Calcium (8.7-10.3) mg/dL Total Protein (6.3-8.2) g/dL Albumin (3.5-5.0) g/dL Urine Protein (Negative) U Tricyclic Antidepress (NotDetected) Assessment and Plan Plan: 1patient with elevated white count in this patient presented to hospital with mental status changes patient did not have any fever does not look toxic. The patient was started on prednisone outpatient setting could be related to this elevated white count patient did have a negative UA chest x-ray was negative for pneumonia abdominal soft medical examination no evidence of any cellulitis or joint swelling 2- we will check inflammatory markers 3-hold on adding any systemic antibiotic therapy as the patient does not look toxic and no obvious focus of infection We will follow on clinical condition and cultures to further adjust medication if needed Thank you for this consultation we will follow the patient along with you Dictation was produced using [employer] dictation software. please excuse any g rammatical, word or spelling errors. Time with Patient: Greater than 30
[2023-05-24 06:07] LABS: Glucose,Whole Blood 182 mg/dL (70-110)
[2023-05-24] MEDS: INSULIN ASPART (NovoLOG) 100 UNIT/ML VIAL SQ SCH ×3 (06:51→16:40)
[2023-05-24] MEDS: FENOFIBRATE 160 MG TAB PO SCH (06:51)
--- NOTE | 2023-05-24 07:27 | XR ---
EXAMINATION TYPE: XR chest 1V portable DATE OF EXAM: 05/24/2023 7:02 AM COMPARISON: Chest radiographs from 05/22/2023 TECHNIQUE: XR chest 1V portable Frontal view of the chest. CLINICAL INDICATION:Female, 62 years old with history of chf; FINDINGS: Lungs/Pleura: There is no evidence of pleural effusion, focal consolidation, or pneumothorax. Pulmonary vascularity: Pulmonary vascular congestion. Heart/mediastinum: Cardiomediastinal silhouette is enlarged and stable. Musculoskeletal: No acute osseous pathology. IMPRESSION: Improved pulmonary vascular congestion. Correlate with BNP for congestive heart failure.
[2023-05-24] MEDS: METOPROLOL TARTRATE 12.5 MG TAB PO SCH ×3 (08:21→21:18)
[2023-05-24] MEDS: MULTIVITAMINS, THERA 1 EACH TAB PO SCH (08:21)
[2023-05-24] MEDS: amLODIPine 2.5 MG TAB PO SCH (08:21)
[2023-05-24] MEDS: BUDESONIDE 0.5 MG/2 ML NEBU INHALATION SCH ×2 (08:35→21:10)
[2023-05-24] MEDS: IPRATROPIUM-ALBUTEROL 3 ML NEB INHALATION SCH ×4 (08:36→21:10)
[2023-05-24 10:03] LABS: ALT 25 U/L (4-34); AST 23 U/L (14-36); African American GFR (CKD) >90 (>60 ml/min/1.73 sqM); Albumin 3.2 g/dL (3.5-5.0); Alkaline Phosphatase 87 U/L (38-126); Anion Gap 5 mmol/L; Blood Urea Nitrogen 9 mg/dL (7-17); C Reactive Protein 4.3 mg/dL (<1.0); Calcium 8.5 mg/dL (8.4-10.2); Carbon Dioxide 29 mmol/L (22-30); Chloride 105 mmol/L (98-107); Glucose 218 mg/dL (74-99); Non-African American GFR(CKD) 85 (>60 ml/min/1.73 sqM); Potassium 4.3 mmol/L (3.5-5.1); Sodium 139 mmol/L (137-145); Total Bilirubin 0.6 mg/dL (0.2-1.3); Total Protein 5.6 g/dL (6.3-8.2)
[2023-05-24] MEDS ORDERED: VANCOMYCIN IV PER PHARMACY 1 EACH MISC MISCELLANE PRN (10:12)
[2023-05-24 10:13] LABS: Anisocytosis Slight; Basophils % (A) 0 %; Eosinophils # (A) 0.2 k/uL (0-0.7); Eosinophils % (A) 2 %; HCT 44.4 % (34.0-46.0); HGB 13.4 gm/dL (11.4-16.0); Hypochromasia Marked; Lymphocytes # (A) 0.7 k/uL (1.0-4.8); Lymphocytes % (A) 5 %; MCH 28.5 pg (25.0-35.0); MCHC 30.1 g/dL (31.0-37.0); MCV 94.5 fL (80.0-100.0); Mean Platelet Volume 9.6; Monocytes # (A) 0.7 k/uL (0-1.0); Monocytes % (A) 6 %; Neutrophils # (A) 11.2 k/uL (1.3-7.7); Neutrophils % (A) 86 %; Platelet Count 148 k/uL (150-450); RDW 16.6 % (11.5-15.5)
[2023-05-24] MEDS: VANCOMYCIN 1,500 MG in SODIUM CHLORIDE 0.9% 500 ML 500 ML IVPB SCH ×2 (10:53→21:21)
[2023-05-24 11:29] LABS: Glucose,Whole Blood 165 mg/dL (70-110)
--- NOTE | 2023-05-24 12:24 | P.PN ---
Subjective This is a pleasant 78 years old female with multiple medical problems She presents with altered mental status candidate to toxic encephalopathy susp ected by neurologist secondary to lithium toxicity, level on admission was 1.8 with a reference range going up to 1.5, release him was held currently, and psychiatry team were consulted. Patient when asked about her name she says a stipgabeae (her name is Kat) , but she can tell last name correctly as Caesar, she answers questions appropriately about she fails to follow commands. She denies any specific complaints but this couldn't be affected by her mentation. Also patient has mild leukocytosis which could be explained also by lithium affect. However blood culture came back positive for staph. epi with further sensitivity is still pending. Patient was started on IV vancomycin. Vital signs stable and afebrile. Doppler velocity 13,000 klononpin and lithium are on hold for now. EEG is pending. ammonia is low. CT of the head and neck was unremarkable for acute process. Active Medications Generic Name Dose Route Start Last Admin Trade Name Alban PRN Reason Stop Dose Admin Acetaminophen 650 mg 05/23/23 13:07 Acetaminophen Tab 325 Mg Tab PO Q6H PRN Fever and/ or Mild Pain Albuterol/Ipratropium 3 ml 05/23/23 08:00 05/24/23 11:36 Ipratropium-Albuterol 3 Ml Neb INHALATION Not Given RT-QID DEMETRIO Albuterol/Ipratropium 3 ml 05/22/23 21:20 Ipratropium-Albuterol 3 Ml Neb INHALATION RT-Q2H PRN Shortness Of Breath Or Wheezing Amlodipine Besylate 7.5 mg 05/23/23 09:00 05/24/23 08:21 Amlodipine 2.5 Mg Tab PO 7.5 mg DAILY DEMETRIO Administration Atorvastatin Calcium 10 mg 05/23/23 21:00 05/23/23 21:14 Atorvastatin 10 Mg Tab PO 10 mg HS DEMETRIO Administration Bisacodyl 10 mg 05/23/23 13:07 Bisacodyl 10 Mg Supp RECTAL DAILY PRN Constipation Budesonide 0.5 mg 05/23/23 08:00 05/24/23 08:35 Budesonide 0.5 Mg/2 Ml Nebu INHALATION Not Given RT-BID DEMETRIO Dextrose/Water 25 ml 05/22/23 21:19 Dextrose 50% Syringe 50 Ml IVP PER PROTOCOL PRN Hypoglycemia Protocol Dextrose/Water 50 ml 05/22/23 21:19 Dextrose 50% Syringe 50 Ml IVP PER PROTOCOL PRN Hypoglycemia Protocol Fenofibrate 160 mg 05/24/23 06:00 05/24/23 06:51 Fenofibrate 160 Mg Tab PO 160 mg DAILY@0600 DEMETRIO Administration Vancomycin HCl 1,500 mg/ 500 mls @ 167 mls/hr 05/24/23 10:30 05/24/23 10:53 Sodium Chloride IVPB 167 mls/hr Q12HR DEMETRIO Administration Insulin Aspart 0 unit 05/23/23 07:30 05/24/23 11:55 Insulin Aspart (Novolog) 100 Unit/Ml Vial SQ 2 unit AC-TID DEMETRIO Administration Protocol Metoprolol Tartrate 12.5 mg 05/22/23 22:00 05/24/23 08:21 Metoprolol Tartrate 12.5 Mg Tab PO 12.5 mg TID DEMETRIO Administration Multivitamins 1 each 05/24/23 09:00 05/24/23 08:21 Multivitamins, Thera 1 Each Tab PO 1 each DAILY DEMETRIO Administration Naloxone HCl 0.2 mg 05/22/23 20:41 Naloxone 0.4 Mg/Ml 1 Ml Vial IV Q2M PRN Opioid Reversal Objective - Vital Signs Vital signs: Vital Signs Temp 98.6 F 05/24/23 08:18 Pulse 69 05/24/23 11:53 Resp 17 05/24/23 11:53 BP 148/66 05/24/23 11:53 Pulse Ox 97 05/24/23 11:53 FiO2 Intake & Output 05/23/23 05/24/23 05/24/23 18:59 06:59 18:59 Intake Total 936 110 Output Total 1350 550 Balance -414 -440 Weight 147.418 kg 96.5 kg Intake: Oral 936 110 Output: Urine 1350 550 Other: Voiding Method Diaper Diaper Diaper Incontinent Incontinent Incontinent # Voids 3 4 - Exam -GENERAL: The patient is awake but confused and does not follow commands appropriately, not in any acute distress. Well developed, well nourished. HEENT: Pupils are round and equally reacting to light. EOMI. No scleral icterus. No conjunctival pallor. Normocephalic, atraumatic. No pharyngeal erythema. No thyromegaly. CARDIOVASCULAR: S1 and S2 present. No murmurs, rubs, or gallops. PULMONARY: Chest is clear to auscultation, no wheezing , no crackles. ABDOMEN: Soft, nontender, nondistended, normoactive bowel sounds. No palpable organomegaly. MUSCULOSKELETAL: No joint swelling or deformity. EXTREMITIES: No cyanosis, clubbing, or pedal edema. NEUROLOGICAL: Gross neurological examination did not reveal any focal deficits. SKIN: No rashes. no petechiae. - Labs CBC & Chem 7: 05/24/23 08:45 05/24/23 08:45 Labs: Abnormal Lab Results - Last 24 Hours (Table) 05/23/23 05/23/23 05/24/23 Range/Units 16:38 20:08 06:06 WBC (3.8-10.6) k/uL MCHC (31.0-37.0) g/dL RDW (11.5-15.5) % Plt Count (150-450) k/uL Neutrophils # (1.3-7.7) k/uL Lymphocytes # (1.0-4.8) k/uL Glucose (74-99) mg/dL POC Glucose (mg/dL) 197 H 164 H 182 H (70-110) mg/dL C-Reactive Protein (<1.0) mg/dL Total Protein (6.3-8.2) g/dL Albumin (3.5-5.0) g/dL 05/24/23 05/24/23 05/24/23 Range/Units 08:45 08:45 11:23 WBC 13.0 H (3.8-10.6) k/uL MCHC 30.1 L (31.0-37.0) g/dL RDW 16.6 H (11.5-15.5) % Plt Count 148 L (150-450) k/uL Neutrophils # 11.2 H (1.3-7.7) k/uL Lymphocytes # 0.7 L (1.0-4.8) k/uL Glucose 218 H (74-99) mg/dL POC Glucose (mg/dL) 165 H (70-110) mg/dL C-Reactive Protein 4.3 H (<1.0) mg/dL Total Protein 5.6 L (6.3-8.2) g/dL Albumin 3.2 L (3.5-5.0) g/dL Microbiology - Last 24 Hours (Table) 05/22/23 17:35 Blood Culture Gram Stain - Preliminary Blood Blood Culture - Preliminary 05/22/23 17:50 Blood Culture - Preliminary Blood Assessment and Plan Assessment: Altered mental status, most likely toxic/metabolic encephalopathy. Wound infection diagnosis esophageal [place] tapering urologist. Ruled out intracranial causes. Positive Staph epi in blood culture Leukocytosis, mild could be secondary to lithium effect versus infection Schizophrenia Diabetes mellitus on insulin at home Hyperlipidemia Hypertension Plan: Continue with IV vancomycin Hold the lithium per neurologist recommendation and consult psychiatrist Neurology consult on the case. Infectious disease team of the case Follow-up follow-up was also blood culture Labs and medication were reviewed.. Continue same treatment. Continue with symptomatic treatment. Resume home medication. Monitor labs and vitals. DVT and GI prophylaxis. Further recommendations as per clinical course of the patient DVT prophylaxis: Subcutaneous heparin GI Prophylaxis: Pepcid PT/OT: Pending Prognosis is guarded
--- NOTE | 2023-05-24 14:39 | P.CN ---
Psychiatric Consult - . Consult date: 05/24/23 Consult:: 05/24/23 14:09 IDENTIFYING DATA: This patient is a 62-year-old female with a history of schizophrenia who currently lives alone, has a guardian REASON FOR REFERRAL: Psychiatry was consulted for schizophrenia and AMS HISTORY OF PRESENT ILLNESS: The patient presented to the hospital initially on 05/22 for altered mental status. Apparently patient has been recently seen in the hospital for similar complaints. Patient apparently has had increasing falls lately, waxing and waning of her mentation altered mental status and according to guardian, patient apparently started having these symptoms after starting to take prednisone last month. Patient's WBCs and ANC were elevated. Patient also was noted to have an elevated lithium level at 1.8 on admission. Patient was seen by neurology and believes that patient had toxic encephalopathy secondary to elevated lithium level. Patient had a computed tomography scan of her head which showed no acute changes and chronic small vessel ischemia and bilateral ptosis. Patients nurse and hospice case manager states that apparently patients baseline is fairly well functioning, lives alone, however requires some help with certain IADLs. The patient was seen lying in bed, was difficult to engage during conversation. She is a poor historian. She claims that she is "just fine". She was leaning to one side during the interview. She was perseverating at times and appeared to be fairly distracted. She believed that she was in "[facility]" and was perseverating on the date August 09" even though she was corrected several times. She was not able to fully answer most questions including her name. She denied any depression or anxiety. Very limited insight and judgment. He was not able to state what she ate earlier today or comment on her sleep. At this time patient denies any current suicidal or homical ideations, intent or plan. Patient denies any auditory, visual hallucinations. Denies any drug use. PAST PSYCHIATRIC HISTORY: Patient has a a history of schizoaffective disorder depressive type. patient is currently on clozapine and lithium. Unsure as to when patient's previous psychiatric hospitalization was, she has not been admitted psychiatrically to this mental health unit. Patient currently follows up with Dr. Cannon as her psychiatrist at [facility]. PAST MEDICAL HISTORY: Past Medical History: Diabetes Mellitus Additional Past Medical History / Comment(s): hx pneumonia History of Any Multi-Drug Resistant Organisms: None Reported Additional Past Surgical History / Comment(s): no previous surgeries Past Anesthesia/Blood Transfusion Reactions: No Reported Reaction Past Psychological History: Schizophrenia Past Alcohol Use History: None Reported Past Drug Use History: None Reported. ALLERGIES: as per EMR. CHEMICAL DEPENDENCY HISTORY: as per HPI. FAMILY PSYCHIATRIC/SUBSTANCE USE HISTORY: Unable to gather this information SOCIAL HISTORY: Patient apparently lives on her own, she has a guardian. Unable to gather further social history. MENTAL STATUS EXAM: General Appearance: Patient appears to be overweight, short hair, stated age is alert, pleasant, and bizarre. Patient appears to have fair hygiene and grooming wearing hospital gown with poor eye contact. Behavior: Patient is calmly lying in bed without any agitated behavior. Bizarre. Speech: Patient's speech is fluent and nonpressured. Perseverating. [place]. Mood/Affect: Patient reports their mood is "just fine", affect is congruent and inappropriate at times Suicidality/Homicidality: Patient denies having any suicidal or homicidal ideation intent or plan. Perceptions: Patient denies any visual hallucinations and denies any auditory hallucinations Though content/process: There is no evidence of any delusional thought content. Grampian, poverty of content. Memory and concentration: AOX1, does not know her name or the current date, can only identify some objects. Cannot spell "WORLD" backwards Judgment and insight: poor/chronically limited IMPRESSIONS: Delirium likely secondary to medications including steroids and lithium Schizoaffective disorder depressive type PLAN: -Patient DOES NOT have decision making capacity at this time and is unable to reason through and communicate/appreciate the risks, benefits and alternatives to treatment. -Delirium precautions recommended with patient including - avoiding use of narcotics and PHP PROGRAMMER sedatives, limit anticholinergic medications when possible, frequent re-orientation, minimize use of restraints, open window shades during the day and close them at night -Would recommend the following medication changes/additions: Start trazodone 50 mg daily at bedtime for insomnia/mood, Prolixin by mouth 5 mg twice a day for psychosis/mood stabilization. At this time we'll hold clozapine and lithium. Recheck lithium level tomorrow morning. -will attempt to gather further information from [facility] on patients previous psychiatric history -Communicated plan to patient's nurse -Will continue to follow along tomorrow. -Please contact with any questions.
[2023-05-24] MEDS ORDERED: LORazepam 2 MG/ML INJ IV ONE (15:44)
[2023-05-24 16:15] LABS: Glucose,Whole Blood 185 mg/dL (70-110)
[2023-05-24] MEDS ORDERED: Lacosamide IV (ages 17+ yrs) 200 MG/20 ML ML IVP STA (16:55)
--- NOTE | 2023-05-24 17:07 | P.PN ---
Subjective Progress Note Date: 05/24/23 I'm seeing the patient for the first time during this hospital admission. Please refer to Dr. Alicea's note for further details. It seems the patient has altered mental status for past couple months that it's reported and has history of schizophrenia she was prescribed prednisone for respiratory difficulty center due to her asthma seems the patient has been restless and weak. During his hospital visit the patient has been afebrile. Her white blood cell has been elevated with slight neutrophilic as high as 14.6 and an and currently is 13.0 thousand. ID is on board. Objective - Vital Signs Vital signs: Vital Signs Temp 98.6 F 05/24/23 08:18 Pulse 80 05/24/23 15:54 Resp 18 05/24/23 15:54 BP 164/71 05/24/23 15:54 Pulse Ox 94 L 05/24/23 15:54 FiO2 Intake & Output 05/23/23 05/24/23 05/24/23 18:59 06:59 18:59 Intake Total 936 220 Output Total 1350 550 Balance -414 -330 Weight 147.418 kg 96.5 kg Intake: Oral 936 220 Output: Urine 1350 550 Other: Voiding Method Diaper Diaper Diaper Incontinent Incontinent Incontinent # Voids 3 4 - Exam GENERAL: The patient is lying in bed and is not in acute distress. NEUROLOGICAL: Examination is limited because of her condition. Patient seems very restless and agitated.She is moderate to severely encephalopathic. She is oriented to self. She is able to follow a few simple commands wiggling her toes showing thumbs up. She is talking nonsensical majority of the time upon examiner. Pupils are round equal reactive to light. No facial weakness. Motor strength is very limited examination and was able to wiggle her toes symmetrically and shoulder thumbs up otherwise it's hard to assess if there is any focality - Labs CBC & Chem 7: 05/24/23 08:45 05/24/23 08:45 Labs: Abnormal Lab Results - Last 24 Hours (Table) 05/23/23 05/23/23 05/24/23 Range/Units 16:38 20:08 06:06 WBC (3.8-10.6) k/uL MCHC (31.0-37.0) g/dL RDW (11.5-15.5) % Plt Count (150-450) k/uL Neutrophils # (1.3-7.7) k/uL Lymphocytes # (1.0-4.8) k/uL Glucose (74-99) mg/dL POC Glucose (mg/dL) 197 H 164 H 182 H (70-110) mg/dL C-Reactive Protein (<1.0) mg/dL Total Protein (6.3-8.2) g/dL Albumin (3.5-5.0) g/dL 05/24/23 05/24/23 05/24/23 Range/Units 08:45 08:45 11:23 WBC 13.0 H (3.8-10.6) k/uL MCHC 30.1 L (31.0-37.0) g/dL RDW 16.6 H (11.5-15.5) % Plt Count 148 L (150-450) k/uL Neutrophils # 11.2 H (1.3-7.7) k/uL Lymphocytes # 0.7 L (1.0-4.8) k/uL Glucose 218 H (74-99) mg/dL POC Glucose (mg/dL) 165 H (70-110) mg/dL C-Reactive Protein 4.3 H (<1.0) mg/dL Total Protein 5.6 L (6.3-8.2) g/dL Albumin 3.2 L (3.5-5.0) g/dL 05/24/23 Range/Units 16:14 WBC (3.8-10.6) k/uL MCHC (31.0-37.0) g/dL RDW (11.5-15.5) % Plt Count (150-450) k/uL Neutrophils # (1.3-7.7) k/uL Lymphocytes # (1.0-4.8) k/uL Glucose (74-99) mg/dL POC Glucose (mg/dL) 185 H (70-110) mg/dL C-Reactive Protein (<1.0) mg/dL Total Protein (6.3-8.2) g/dL Albumin (3.5-5.0) g/dL Microbiology - Last 24 Hours (Table) 05/22/23 17:35 Blood Culture Gram Stain - Preliminary Blood Blood Culture - Preliminary 05/22/23 17:50 Blood Culture - Preliminary Blood Assessment and Plan Assessment: This is a 62-year-old woman who presented emergency department because of confusion and it's reported that she's been having confusion for the past couple months and she was recently been on prednisone for her asthma and has been restless and weak. Encephalopathy: Possibley toxic encephalopathy. Medication effect of prednisone for recent asthma as well as the lithium is a considered potentially toxic of level I.8. She has leukocytosis but no fever initially was thought the leukocytosis was due to prednisone. I cannot rule out any underlying infection such as CS ASSOCIATE. Urine drug screen is positive for tricyclic antidepressant. History of schizophrenia Urine drug it's positive for tricyclic antidepressant Plan: Patient TSH, ammonia is what is in within normal limits. I ordered vitamin B12 and folate level. I consulted pain management for lumbar puncture to rule out any underlying CS ASSOCIATE infection. An EEG was done pending report I ordered MRI of the brain with and without to rule out any central cause Infection disease is on board. We'll defer the rest of the medical management to the primary team and other s pecialist. UPDATE: Preliminary report EEG: Moderate encephalopathy. [place] highly suspicious of left frontal temporal discharges but no seizures noted. I started the patient on Vimpat 50 [place], tablet twice a day with a bolus of 100 mg once. We'll get a prolonged EEG 90 minutes tomorrow. The plan is discussed with primary team N.P. Time with Patient: Less than 30
[2023-05-24 20:13] LABS: Glucose,Whole Blood 197 mg/dL (70-110)
[2023-05-24] MEDS ORDERED: Lacosamide IV (ages 17+ yrs) 200 MG/20 ML ML IVP SCH (21:00)
[2023-05-24] MEDS: HEPARIN SODIUM,PORCINE/PF 5,000 UNIT/0.5 ML SYRINGE SQ SCH (21:17)
[2023-05-24] MEDS: FAMOTIDINE 20 MG/2 ML VIAL IV SCH (21:17)
[2023-05-24] MEDS: traZODone HCL 50 MG TAB PO SCH (21:18)
[2023-05-24] MEDS: ATORVASTATIN 10 MG TAB PO SCH (21:18)
--- NOTE | 2023-05-24 21:58 | EEG ---
ELECTROENCEPHALOGRAM REPORT CLINICAL HISTORY: This is a 62-year-old woman with altered mental status. The video EEG is obtained to evaluate for seizure epileptiform activity. RELEVANT MEDICATIONS: Trazodone and fluphenazine. DESCRIPTION: The background consists of 6 hertz activity. At times, the background consists of nonrhythmic qua-lp-bhmggipj voltage delta activity. There is no physiological stage 2 sleep architecture. There is no focal slowing. Interictal and ictal is, it seems to be highly suspicious of spike and slow waves over the left frontal temporal region. No seizures are noted. ACTIVATION PROCEDURE: Photic stimulation did not evoke a posterior driving response. No abnormality during the photic stimulation. Hyperventilation is not performed. CLINICAL INTERPRETATION: This is an abnormal routine EEG. The background slowing is suggestive of moderate encephalopathy. There seems to be highly suspicious of epileptiform discharges over the left frontal temporal region. No seizures noted during the study and no focal slowing. Recommend a repeat EEG. Clinical correlation is recommended. ZAMZAM / ELLAN: [id number] / SCOTTIE
[2023-05-25] MEDS: Lacosamide IV (ages 17+ yrs) 200 MG/20 ML ML IVP SCH ×3 (01:20→20:20)
[2023-05-25 06:06] LABS: Glucose,Whole Blood 186 mg/dL (70-110)
[2023-05-25] MEDS: INSULIN ASPART (NovoLOG) 100 UNIT/ML VIAL SQ SCH ×3 (06:33→17:12)
[2023-05-25] MEDS: FENOFIBRATE 160 MG TAB PO SCH (06:34)
[2023-05-25] MEDS: IPRATROPIUM-ALBUTEROL 3 ML NEB INHALATION SCH ×4 (07:58→21:13)
[2023-05-25] MEDS: BUDESONIDE 0.5 MG/2 ML NEBU INHALATION SCH ×2 (07:58→21:13)
[2023-05-25] MEDS: HEPARIN SODIUM,PORCINE/PF 5,000 UNIT/0.5 ML SYRINGE SQ SCH ×2 (08:25→20:19)
[2023-05-25] MEDS: VANCOMYCIN 1,500 MG in SODIUM CHLORIDE 0.9% 500 ML 500 ML IVPB SCH ×2 (08:35→20:19)
[2023-05-25] MEDS: amLODIPine 2.5 MG TAB PO SCH (08:35)
[2023-05-25] MEDS: MULTIVITAMINS, THERA 1 EACH TAB PO SCH (08:35)
[2023-05-25] MEDS: FAMOTIDINE 20 MG/2 ML VIAL IV SCH ×2 (08:36→20:19)
[2023-05-25] MEDS: METOPROLOL TARTRATE 12.5 MG TAB PO SCH ×3 (08:36→21:53)
[2023-05-25 09:01] LABS: African American GFR (CKD) >90 (>60 ml/min/1.73 sqM); Non-African American GFR(CKD) >90 (>60 ml/min/1.73 sqM)
[2023-05-25] MEDS ORDERED: LORazepam 2 MG/ML INJ IV ONE (10:15)
--- NOTE | 2023-05-25 10:19 | P.PN ---
Subjective This is a pleasant 78 years old female with multiple medical problems She presents with altered mental status candidate to toxic encephalopathy susp ected by neurologist secondary to lithium toxicity, level on admission was 1.8 with a reference range going up to 1.5, release him was held currently, and psychiatry team were consulted. Patient when asked about her name she says a stiphanae (her name is Kat) , but she can tell last name correctly as Caesar, she answers questions appropriately about she fails to follow commands. She denies any specific complaints but this couldn't be affected by her mentation. Also patient has mild leukocytosis which could be explained also by lithium affect. However blood culture came back positive for staph. epi with further sensitivity is still pending. Patient was started on IV vancomycin. Vital signs stable and afebrile. Doppler velocity 13,000 klononpin and lithium are on hold for now. EEG is pending. ammonia is low. CT of the head and neck was unremarkable for acute process. 05/25/2023 Patient awake but she still confused, she can tell she is in hospital in [place] but she could not tell the name of the hospital she could not tell that time or the name of the president. Patient had no insight into her illness and answer some questions appropriately while other questions she started laughing inappropriately related to her confusion. Patient looks like she has generalized weakness, her weakness is more on the right side but this is limited by patient change in mentation. No other new complaints. Hemodynamically stable. She remains on IV vancomycin for staph epidermidis positive blood culture. neurologist started the patient on Vimpat for EEG showing left frontal dischar ged with no seizure Eufemia remains on hold for psychiatrist and to start trazodone and Prolixin. keppra is on hold MRI of the brain and lumbar puncture pending Active Medications Generic Name Dose Route Start Last Admin Trade Name Freq PRN Reason Stop Dose Admin Acetaminophen 650 mg 05/23/23 13:07 Acetaminophen Tab 325 Mg Tab PO Q6H PRN Fever and/ or Mild Pain Albuterol/Ipratropium 3 ml 05/23/23 08:00 05/24/23 11:36 Ipratropium-Albuterol 3 Ml Neb INHALATION Not Given RT-QID DEMETRIO Albuterol/Ipratropium 3 ml 05/22/23 21:20 Ipratropium-Albuterol 3 Ml Neb INHALATION RT-Q2H PRN Shortness Of Breath Or Wheezing Amlodipine Besylate 7.5 mg 05/23/23 09:00 05/24/23 08:21 Amlodipine 2.5 Mg Tab PO 7.5 mg DAILY DEMETRIO Administration Atorvastatin Calcium 10 mg 05/23/23 21:00 05/23/23 21:14 Atorvastatin 10 Mg Tab PO 10 mg HS DEMETRIO Administration Bisacodyl 10 mg 05/23/23 13:07 Bisacodyl 10 Mg Supp RECTAL DAILY PRN Constipation Budesonide 0.5 mg 05/23/23 08:00 05/24/23 08:35 Budesonide 0.5 Mg/2 Ml Nebu INHALATION Not Given RT-BID DEMETRIO Dextrose/Water 25 ml 05/22/23 21:19 Dextrose 50% Syringe 50 Ml IVP PER PROTOCOL PRN Hypoglycemia Protocol Dextrose/Water 50 ml 05/22/23 21:19 Dextrose 50% Syringe 50 Ml IVP PER PROTOCOL PRN Hypoglycemia Protocol Fenofibrate 160 mg 05/24/23 06:00 05/24/23 06:51 Fenofibrate 160 Mg Tab PO 160 mg DAILY@0600 DEMETRIO Administration Vancomycin HCl 1,500 mg/ 500 mls @ 167 mls/hr 05/24/23 10:30 05/24/23 10:53 Sodium Chloride IVPB 167 mls/hr Q12HR DEMETRIO Administration Insulin Aspart 0 unit 05/23/23 07:30 05/24/23 11:55 Insulin Aspart (Novolog) 100 Unit/Ml Vial SQ 2 unit AC-TID DEMETRIO Administration Protocol Metoprolol Tartrate 12.5 mg 05/22/23 22:00 05/24/23 08:21 Metoprolol Tartrate 12.5 Mg Tab PO 12.5 mg TID DEMETRIO Administration Multivitamins 1 each 05/24/23 09:00 05/24/23 08:21 Multivitamins, Thera 1 Each Tab PO 1 each DAILY DEMETRIO Administration Naloxone HCl 0.2 mg 05/22/23 20:41 Naloxone 0.4 Mg/Ml 1 Ml Vial IV Q2M PRN Opioid Reversal Objective - Vital Signs Vital signs: Vital Signs Temp 99.4 F 05/25/23 08:00 Pulse 69 05/25/23 08:00 Resp 16 05/25/23 08:00 BP 150/66 05/25/23 08:00 Pulse Ox 96 05/25/23 08:00 FiO2 Intake & Output 05/24/23 05/25/23 05/25/23 18:59 06:59 18:59 Intake Total 330 700 Output Total 900 Balance -570 700 Weight 108 kg Intake: Intake, IV Titration 500 Amount Vancomycin 1,500 mg In 500 Sodium Chloride 0.9% 500 ml 500 ml @ 167 mls/hr IVPB Q12HR DEMETRIO Rx#: [id number] Oral 330 200 Output: Urine 900 Other: Voiding Method Diaper Diaper Incontinent Incontinent # Voids 3 - Exam -GENERAL: The patient is awake but confused and does not follow commands appropriately, not in any acute distress. Well developed, well nourished. HEENT: Pupils are round and equally reacting to light. EOMI. No scleral icterus. No conjunctival pallor. Normocephalic, atraumatic. No pharyngeal erythema. No thyromegaly. CARDIOVASCULAR: S1 and S2 present. No murmurs, rubs, or gallops. PULMONARY: Chest is clear to auscultation, no wheezing , no crackles. ABDOMEN: Soft, nontender, nondistended, normoactive bowel sounds. No palpable organomegaly. MUSCULOSKELETAL: No joint swelling or deformity. EXTREMITIES: No cyanosis, clubbing, or pedal edema. NEUROLOGICAL: Gross neurological examination did not reveal any focal deficits. SKIN: No rashes. no petechiae. - Labs CBC & Chem 7: 05/24/23 08:45 05/25/23 08:12 Labs: Abnormal Lab Results - Last 24 Hours (Table) 05/24/23 05/24/23 05/24/23 Range/Units 08:45 11:23 16:14 WBC 13.0 H (3.8-10.6) k/uL MCHC 30.1 L (31.0-37.0) g/dL RDW 16.6 H (11.5-15.5) % Plt Count 148 L (150-450) k/uL Neutrophils # 11.2 H (1.3-7.7) k/uL Lymphocytes # 0.7 L (1.0-4.8) k/uL POC Glucose (mg/dL) 165 H 185 H (70-110) mg/dL 05/24/23 05/25/23 Range/Units 20:12 06:05 WBC (3.8-10.6) k/uL MCHC (31.0-37.0) g/dL RDW (11.5-15.5) % Plt Count (150-450) k/uL Neutrophils # (1.3-7.7) k/uL Lymphocytes # (1.0-4.8) k/uL POC Glucose (mg/dL) 197 H 186 H (70-110) mg/dL Microbiology - Last 24 Hours (Table) 05/23/23 11:31 Blood Culture - Preliminary Blood 05/22/23 17:35 Blood Culture Gram Stain - Preliminary Blood Blood Culture - Preliminary 05/22/23 17:50 Blood Culture - Preliminary Blood Assessment and Plan Assessment: Altered mental status, most likely toxic/metabolic encephalopathy. Wound infe ction diagnosis esophageal [place] tapering urologist. Ruled out intracranial causes. Positive Staph epi in blood culture Leukocytosis, mild could be secondary to lithium effect versus infection Schizophrenia Diabetes mellitus on insulin at home Hyperlipidemia Hypertension Plan: Continue with IV vancomycin Hold the lithium per neurologist recommendation and consult psychiatrist who added trazodone and Prolixin Neurology consult on the case. Infectious disease team of the case Follow-up follow-up was also blood culture Follow-up MRI of the brain and the lumbar puncture per neurologist Labs and medication were reviewed.. Continue same treatment. Continue with symptomatic treatment. Resume home medication. Monitor labs and vitals. DVT and GI prophylaxis. Further recommendations as per clinical course of the patient DVT prophylaxis: Subcutaneous heparin (hold for lumbar puncture, discussed with bed side nurse) GI Prophylaxis: Pepcid PT/OT: Pending Prognosis is guarded
[2023-05-25 12:39] LABS: Glucose,Whole Blood 169 mg/dL (70-110)
--- NOTE | 2023-05-25 14:00 | P.PN ---
Progress Note - Text Progress Note Date: 05/25/23 Interval History: Patient was seen today for psychiatric follow-up for patient's delirium and sc hizoaffective disorder. Patient had a lithium level drawn this morning which showed 1.0 as this was a decrease from admission. Patient was started on trazodone and also Prolixin twice a day for psychosis. Patient's nurse claims that patient received Ativan earlier before adding to her MRI. Patient was seen resting in her bed today and appeared to be fairly sedated and not able to participate in conversation or answer many questions. Mental Status Exam: General Appearance: Patient appears to be overweight, short hair, stated age is sedated/lethargic. Behavior: Patient is calmly lying in bed without any agitated behavior. Mainly sedated Speech: Patient's speech is mumbled Mood/Affect: Unable to assess Suicidality/Homicidality: Unable to assess Perceptions: Unable to assess Though content/process: Unable to assess Memory and concentration: Able to assess Judgment and insight: poor/chronically limited IMPRESSIONS: Delirium likely secondary to medications including steroids and lithium Schizoaffective disorder depressive type PLAN: -Patient DOES NOT have decision making capacity at this time and is unable to reason through and communicate/appreciate the risks, benefits and alternatives to treatment. -Delirium precautions recommended with patient including - avoiding use of narcotics and [employer] sedatives, limit anticholinergic medications when possible, frequent re-orientation, minimize use of restraints, open window shades during the day and close them at night -Would recommend the following medication changes/additions: trazodone 50 mg daily at bedtime for insomnia/mood, Prolixin by mouth 5 mg twice a day for psychosis/mood stabilization. lithium level continues to decrease, this morning was at 1.0 -will await MRI results. -Communicated plan to patient's nurse -Will continue to follow along tomorrow -Please contact with any questions
--- NOTE | 2023-05-25 14:22 | P.PCN ---
Date of Procedure: 05/25/23 Procedure(s) Performed: Preoperative diagnosis: Altered mental status Post operative diagnoses: Altered mental status Procedure= lumbar puncture under fluoroscopy guidance Anesthesia= local anesthesia with lidocaine 1% 3 mL only Complication: none. Description of the procedure procedure risk and benefits discussed with the family, consent signed. Patient and the procedure area placed in prone position , back prepped with chlorhexidine 3 times been local infiltration of the skin and subcutaneous tissue with lidocaine 1% 3 mL for skin and subcu interstitial frustrations at L4 5 levels (identified under fluoroscopy guidance )then 22- gauge Quincke-type needle advanced slowly at L4- 5 interlaminar space there was positive cerebrospinal fluid which was clear, no heme, no paresthesia ,total of 9 ML of clear cerebrospinal fluid collected in 4 different tubes 2-2-1/2 mL in each, then the needle removed and a Band-Aid applied and patient tolerated the procedure well without any complications. note= no lumbar puncture was attempted to be done on the floor in the patient's room 378, attempted in sitting position without fluoroscopy was failed to get any cerebrospinal fluid, for this reason the procedure was done under fluoroscopy guidance
--- NOTE | 2023-05-25 14:32 | MR ---
EXAMINATION TYPE: MR brain wo con DATE OF EXAM: 05/25/2023 12:38 PM COMPARISON: 05/13/2023. CLINICAL INDICATION:Female, 62 years old with history of altered mental status, fever.; TECHNIQUE: Multi planar, multi sequence imaging was performed through the brain including: T1, T2, In version recovery, Diffusion weighted imaging. No gadolinium was given. FINDINGS: Motion limited exam. The kumar-white junctions, ventricular system, and cisterns appear unremarkable. Minimal scattered fo ci of high T2 signal intensity are seen within the periventricular white matter. Midline structures s how no abnormality. Diffusion-weighted imaging shows no evidence of restricted diffusion. The bone marrow signal is within normal limits. Paranasal sinuses and mastoid air cells: No significant paranasal sinus disease. Visualized orbits: Orbital contents are intact. IMPRESSION: Motion limited exam. 1. No evidence of intracranial mass or acute/subacute infarct. 2. Minimal Nonspecific white matter changes, likely secondary to small vessel ischemic disease.
--- NOTE | 2023-05-25 15:34 | P.PN ---
Subjective Progress Note Date: 05/24/23 Principal diagnosis: Leukocytosis and a positive blood culture Patient is a 62-year-old female with a past medical history significant diabetes mellitus currently senior care resident the patient has been brought into the hospital for evaluation of mental status changes symptom has been going on for a few days and patient also have increased falls which has been attributed to the patient being started on prednisone last month, patient was noticed to have elevated white count on admission which was attributed to possible steroids subsequently blood cultures came back 2 out of 2 with gram- positive cocci in cluster on today's evaluation that is 05/24/2023, patient remains to be afebrile, the patient is breathing comfortably on a 2 L nasal cannula oxygen patient was undergoing EEG and the patient did not answer the question no vomiting or diarrhea has been reported Patient did have a white count of 13,000, creatinine 0.76, pro calcitonin of 0.09, did have a CRP of 4.3, blood cultures 2 out of 2 with the gram-positive cocci in cluster Objective - Vital Signs Vital signs: Vital Signs Temp 98.6 F 05/24/23 08:18 Pulse 79 05/24/23 08:29 Resp 18 05/24/23 08:18 BP 151/70 05/24/23 08:18 Pulse Ox 95 05/24/23 08:18 FiO2 Intake & Output 05/23/23 05/24/23 05/24/23 18:59 06:59 18:59 Intake Total 936 110 Output Total 1350 550 Balance -414 -440 Weight 147.418 kg 96.5 kg Intake: Oral 936 110 Output: Urine 1350 550 Other: Voiding Method Diaper Diaper Diaper Incontinent Incontinent Incontinent # Voids 3 4 - Exam GENERAL DESCRIPTION: Middle-age female lying in bed in no distress RESPIRATORY SYSTEM: Unlabored breathing , decreased breath sounds at bases HEART: S1 S2 regular rate and rhythm , ABDOMEN: Soft , no tenderness EXTREMITIES: No edema feet - Labs CBC & Chem 7: 05/24/23 08:45 05/25/23 08:12 Labs: Abnormal Lab Results - Last 24 Hours (Table) 05/23/23 05/23/23 05/23/23 Range/Units 06:34 06:34 11:34 BUN 7.9 L (9.0-27.0) mg/dL BUN/Creatinine Ratio 9.88 L (12.00-20.00) Ratio Glucose 168 H (70-110) mg/dL POC Glucose (mg/dL) 147 H (70-110) mg/dL Hemoglobin A1c 7.9 H (<=6.0) % Calcium 8.5 L (8.7-10.3) mg/dL 05/23/23 05/23/23 05/24/23 Range/Units 16:38 20:08 06:06 BUN (9.0-27.0) mg/dL BUN/Creatinine Ratio (12.00-20.00) Ratio Glucose (70-110) mg/dL POC Glucose (mg/dL) 197 H 164 H 182 H (70-110) mg/dL Hemoglobin A1c (<=6.0) % Calcium (8.7-10.3) mg/dL Microbiology - Last 24 Hours (Table) 05/22/23 17:35 Blood Culture Gram Stain - Preliminary Blood Blood Culture - Preliminary 05/22/23 17:50 Blood Culture - Preliminary Blood Assessment and Plan (1) Leukocytosis Current Visit: Yes Status: Acute Code(s): D72.829 - ELEVATED WHITE BLOOD CELL COUNT, UNSPECIFIED SNOMED Code(s): 665736754 (2) Bacteremia Current Visit: Yes Status: Acute Code(s): R78.81 - BACTEREMIA SNOMED Code(s): 1473666 Plan: 1patient with elevated white count in this patient presented to hospital with mental status changes patient did not have any fever does not look toxic. The patient was started on prednisone outpatient setting could be related to this elevated white count patient did have a negative UA chest x-ray was negative for pneumonia abdominal soft on clinical examination no evidence of any cellulitis or joint swelling 2-patient did have a mildly elevated CRP but Percocet and is normal 3-patient did have a positive blood cultures 2 out of 2 with gram-positive cocci blood cultures will be repeated will add vancomycin empirically while awaiting further workup to be completed, with persistent mental status changes patient benefit from LP Which has been ordered Dictation was produced using [employer] software. please excuse any grammatical, word or spelling errors. Time with Patient: Less than 30
[2023-05-25 16:23] LABS: Glucose,Whole Blood 176 mg/dL (70-110)
--- NOTE | 2023-05-25 17:09 | P.PN ---
Subjective Progress Note Date: 05/25/23 She was seen at bedside and per the patient and her she continues to be drowsy but minimally responsive and she was able to state her name to the nurse and followed a few simple commands. Per the nurse she required Ativan for MRI and so is very drowsy more than earlier today. Objective - Vital Signs Vital signs: Vital Signs Temp 98.9 F 05/25/23 15:19 Pulse 69 05/25/23 15:19 Resp 22 05/25/23 15:19 BP 164/77 05/25/23 15:19 Pulse Ox 94 L 05/25/23 15:19 FiO2 Intake & Output 05/24/23 05/25/23 05/25/23 18:59 06:59 18:59 Intake Total 330 700 Output Total 900 Balance -570 700 Weight 108 kg Intake: Intake, IV Titration 500 Amount Vancomycin 1,500 mg In 500 Sodium Chloride 0.9% 500 ml 500 ml @ 167 mls/hr IVPB Q12HR [facility] Rx#: [id number] Oral 330 200 Output: Urine 900 Other: Voiding Method Diaper Diaper Diaper Incontinent Incontinent Incontinent # Voids 3 1 - Exam GENERAL: The patient is lying in bed and is not in acute distress. NEUROLOGICAL: Examination is limited because of her condition. She received Ativan for MRI earlier today. Patient very drowsy and minimally responsive to voice. She is able to follow few simple commands (thumbs up and sticking out her tongue). Not verbalizing. Pupils are round equal reactive to light. No facial weakness. Motor strength is very limited examination and was able to move hands. - Labs CBC & Chem 7: 05/24/23 08:45 05/25/23 08:12 Labs: Abnormal Lab Results - Last 24 Hours (Table) 05/24/23 05/25/23 05/25/23 Range/Units 20:12 06:05 12:37 POC Glucose (mg/dL) 197 H 186 H 169 H (70-110) mg/dL 05/25/23 Range/Units 16:21 POC Glucose (mg/dL) 176 H (70-110) mg/dL Microbiology - Last 24 Hours (Table) 05/22/23 17:50 Blood Culture Gram Stain - Preliminary Blood Blood Culture - Preliminary Coagulase Negative Staph 05/22/23 17:35 Blood Culture Gram Stain - Preliminary Blood Blood Culture - Preliminary Coagulase Negative Staph 05/23/23 11:31 Blood Culture - Preliminary Blood Assessment and Plan Assessment: This is a 62-year-old woman who presented emergency department because of confusion and it's reported that she's been having confusion for the past couple months and she was recently been on prednisone for her asthma and has been restless and weak. Encephalopathy: Possibley toxic encephalopathy. Medication effect of prednisone for recent asthma as well as the lithium is a considered potentially toxic of level 1.8. She has leukocytosis but no fever initially was thought the leukocyt osis was due to prednisone. Rule out infection such as SUPPLY CHAIN DEVELOPMENT MANAGER. Urine drug screen is positive for tricyclic antidepressant. MRI Brain is negative for acute or subacute stroke. Routine EEG was suspicious for epileptiform discharges over left fronto-temporal but prolonged was negative for discharges or seizures. History of schizophrenia Urine drug it's positive for tricyclic antidepressant Plan: Patient TSH, ammonia is what is in within normal limits. I ordered vitamin B12 and folate level. Patient had LP today by Dr. Lal to rule out any underlying SUPPLY CHAIN DEVELOPMENT MANAGER infection. MR the brain is reported as motion limited exam. No evidence of intracranial mass or acute subacute infarct. Minimal nonspecific white matter changes, likely secondary due to small vessel ischemic disease. Routine EEG is abnormal. The brachial slowing suggestive of moderate encephalopathy. There seems to be highly suspicious epileptiform discharges over left frontal temporal region. No seizure during the study and no focal slowing. Prolonged EEG 90 minutes performed on 05/25/[address] Lorenzana that no seizure or discharges. Pending final read. Yesterday I started the patient on Vimpat 100 mg once and start her on the Vimpat 50 mg 1 tablet twice a day. The patient the mentation improves and no seizure-like activity will taper the Vimpat since no seizure on the long-term EEG and no discharges that's reported. Infection disease is on board. We'll defer the rest of the medical management to the primary team and other specialist. The plan is discussed with patient's nurse. Time with Patient: Less than 30
--- NOTE | 2023-05-25 18:32 | FL ---
Intraoperative/procedural fluoroscopic services were provided for lumbar puncture. Total fluoroscopy time is 4.6 seconds with a total of 1 submitted image to PACS. Total DAP [id number] mGym2. Please see t he operative note for further details.
[2023-05-25 20:10] LABS: Glucose,Whole Blood 171 mg/dL (70-110)
[2023-05-25] MEDS: ATORVASTATIN 10 MG TAB PO SCH (20:20)
[2023-05-25] MEDS: traZODone HCL 50 MG TAB PO SCH (20:20)
--- NOTE | 2023-05-25 21:25 | EEG ---
ELECTROENCEPHALOGRAM REPORT ELECTROENCEPHALOGRAM (EEG) REPORT: TECHNIQUE: A routine 18-channel EEG was performed with video using the 10/20 [employer] Electrode Placement System. HISTORY: The patient was brought to the hospital for mental status changes, encephalopathy, and history of bipolar disorder. CURRENT MEDICATIONS: 1. Tylenol. 2. Albuterol. 3. Norvasc. 4. Lipitor. 5. Pulmicort. 6. Pepcid. 7. Lofibra. 8. Prolixin. 9. Insulin. 10.Multivitamin. 11.Trazodone. 12.Lopressor? 13.Vancomycin. STUDY DURATION: 63 minutes. FINDINGS: BACKGROUND: The background activity consisted of poorly-modulated 5 to 6 Hz waveforms with intermixed slower delta frequencies. ACTIVATION: 1. Hyperventilation: Not performed. 2. Photic stimulation: Not performed. SLEEP: Drowsy. ABNORMALITIES: 1. Frequent high-amplitude frontally-predominant triphasic waves were seen. 2. Frequent frontally-predominant delta-range slowing was seen at times consistent with frontal intermittent rhythmic delta activity (FIRDA). 3. Diffuse 3 to 6 Hz slow-wave activity was seen. IMPRESSION: Abnormal EEG. No seizures were recorded. No epileptiform activity was present. The triphasic waves mentioned above are not epileptiform in nature. Triphasic waves can be seen in the setting of a metabolic encephalopathy. The frontally-predominant delta- range slowing mentioned above is not epileptiform in nature. The diffuse theta/delta- range slowing mentioned above is not epileptiform in nature. In combination, these findings indicate moderate diffuse cerebral dysfunction as may be seen in a toxo- metabolic encephalopathy. These findings were called to the consulting neurologist at 04:15 p.m. on 05/25/2023. MMODL / IJN: [id number] /
[2023-05-26 06:01] LABS: Glucose,Whole Blood 191 mg/dL (70-110)
[2023-05-26] MEDS: FENOFIBRATE 160 MG TAB PO SCH (06:27)
[2023-05-26] MEDS: INSULIN ASPART (NovoLOG) 100 UNIT/ML VIAL SQ SCH ×3 (06:27→16:27)
[2023-05-26] MEDS: BUDESONIDE 0.5 MG/2 ML NEBU INHALATION SCH ×2 (07:43→21:18)
[2023-05-26] MEDS: IPRATROPIUM-ALBUTEROL 3 ML NEB INHALATION SCH ×4 (07:43→21:17)
[2023-05-26] MEDS ORDERED: VANCOMYCIN TROUGH DUE 1 EACH MISC MISCELLANE ONE (08:00)
[2023-05-26] MEDS ORDERED: methylPREDNISolone SOD SUCCI 40 MG/ML 1 ML VIAL IV SCH (08:15)
[2023-05-26] MEDS: HEPARIN SODIUM,PORCINE/PF 5,000 UNIT/0.5 ML SYRINGE SQ SCH ×2 (08:31→21:43)
[2023-05-26] MEDS: amLODIPine 2.5 MG TAB PO SCH (08:32)
[2023-05-26] MEDS: FUROSEMIDE 10 MG/ML 4 ML VIAL IV SCH ×2 (08:32→20:50)
[2023-05-26] MEDS: MULTIVITAMINS, THERA 1 EACH TAB PO SCH (08:32)
[2023-05-26] MEDS: FAMOTIDINE 20 MG/2 ML VIAL IV SCH ×2 (08:32→21:43)
[2023-05-26] MEDS: METOPROLOL TARTRATE 12.5 MG TAB PO SCH ×3 (08:32→21:40)
[2023-05-26 08:39] LABS: Anisocytosis Slight; Basophils % (A) 0 %; Eosinophils # (A) 0.2 k/uL (0-0.7); Eosinophils % (A) 3 %; HCT 44.1 % (34.0-46.0); HGB 13.1 gm/dL (11.4-16.0); Hypochromasia Marked; Lymphocytes # (A) 0.7 k/uL (1.0-4.8); Lymphocytes % (A) 8 %; MCH 28.3 pg (25.0-35.0); MCHC 29.6 g/dL (31.0-37.0); MCV 95.4 fL (80.0-100.0); Mean Platelet Volume 7.6; Monocytes # (A) 0.6 k/uL (0-1.0); Monocytes % (A) 7 %; Neutrophils # (A) 7.5 k/uL (1.3-7.7); Neutrophils % (A) 82 %; Platelet Count 135 k/uL (150-450); RBC 4.62 m/uL (3.80-5.40); RDW 16.7 % (11.5-15.5); WBC 9.1 k/uL (3.8-10.6)
[2023-05-26] MEDS: Lacosamide IV (ages 17+ yrs) 200 MG/20 ML ML IVP SCH ×2 (08:47→22:49)
[2023-05-26] MEDS: VANCOMYCIN 1,500 MG in SODIUM CHLORIDE 0.9% 500 ML 500 ML IVPB SCH (08:47)
[2023-05-26 08:49] LABS: African American GFR (CKD) >90 (>60 ml/min/1.73 sqM); Non-African American GFR(CKD) >90 (>60 ml/min/1.73 sqM)
[2023-05-26 08:54] LABS: ALT 22 U/L (4-34); AST 20 U/L (14-36); African American GFR (CKD) >90 (>60 ml/min/1.73 sqM); Albumin 3.2 g/dL (3.5-5.0); Alkaline Phosphatase 89 U/L (38-126); Anion Gap 5 mmol/L; Bilirubin, Delta 0.3 mg/dL (0.0-0.2); Bilirubin,Unconjugated 0.2 mg/dL (0.0-1.1); Blood Urea Nitrogen 11 mg/dL (7-17); Calcium 8.3 mg/dL (8.4-10.2); Carbon Dioxide 28 mmol/L (22-30); Chloride 112 mmol/L (98-107); Glucose 202 mg/dL (74-99); Non-African American GFR(CKD) >90 (>60 ml/min/1.73 sqM); Potassium 4.6 mmol/L (3.5-5.1); Sodium 145 mmol/L (137-145); Total Bilirubin 0.5 mg/dL (0.2-1.3); Total Protein 5.6 g/dL (6.3-8.2)
[2023-05-26 08:58] LABS: NT-Pro-B-Type Natriuretic Pept 836 pg/mL
[2023-05-26 11:21] LABS: Glucose,Whole Blood 196 mg/dL (70-110)
[2023-05-26] MEDS ORDERED: predniSONE 10 MG TAB PO SCH (11:45)
--- NOTE | 2023-05-26 11:48 | P.PN ---
Subjective This is a pleasant 78 years old female with multiple medical problems She presents with altered mental status candidate to toxic encephalopathy susp ected by neurologist secondary to lithium toxicity, level on admission was 1.8 with a reference range going up to 1.5, release him was held currently, and psychiatry team were consulted. Patient when asked about her name she says a stipgabeae (her name is Kat) , but she can tell last name correctly as Caesar, she answers questions appropriately about she fails to follow commands. She denies any specific complaints but this couldn't be affected by her mentation. Also patient has mild leukocytosis which could be explained also by lithium affect. However blood culture came back positive for staph. epi with further sensitivity is still pending. Patient was started on IV vancomycin. Vital signs stable and afebrile. Doppler velocity 13,000 klononpin and lithium are on hold for now. EEG is pending. ammonia is low. CT of the head and neck was unremarkable for acute process. 05/25/2023 Patient awake but she still confused, she can tell she is in hospital in [place] but she could not tell the name of the hospital she could not tell that time or the name of the president. Patient had no insight into her illness and answer some questions appropriately while other questions she started laughing inappropriately related to her confusion. Patient looks like she has generalized weakness, her weakness is more on the right side but this is limited by patient change in mentation. No other new complaints. Hemodynamically stable. She remains on IV vancomycin for staph epidermidis positive blood culture. neurologist started the patient on Vimpat for EEG showing left frontal dischar ged with no seizure Eufemia remains on hold for psychiatrist and to start trazodone and Prolixin. keppra is on hold MRI of the brain and lumbar puncture pending 05/26/2023 Patient remains somewhat confused, laughing inappropriately at times. MRI of the brain: No acute stroke or mass EEG: Frequent high amplitude triphasic waves, delta waves and other waves which per note of note epileptiform in nature and they are seen in toxic/metabolic Encephalopathy. Patient was already started on vimpat by neurologist She has positive blood culture with coagulase negative staph, possible contamination. Repeat blood culture are still pending. Patient remains on IV vancomycin Her breathing is improving after stress echo for Lasix and most likely patient has mild COPD exacerbation given her history of smoking. We will change her steroids into prednisone 30 mg daily Patient is status post lumbar puncture yesterday. Results are still pending Active Medications Generic Name Dose Route Start Last Admin Trade Name Alban PRN Reason Stop Dose Admin Acetaminophen 650 mg 05/23/23 13:07 Acetaminophen Tab 325 Mg Tab PO Q6H PRN Fever and/ or Mild Pain Albuterol/Ipratropium 3 ml 05/23/23 08:00 05/26/23 11:44 Ipratropium-Albuterol 3 Ml Neb INHALATION 3 ml RT-QID [facility] Administration Albuterol/Ipratropium 3 ml 05/22/23 21:20 Ipratropium-Albuterol 3 Ml Neb INHALATION RT-Q2H PRN Shortness Of Breath Or Wheezing Amlodipine Besylate 7.5 mg 05/23/23 09:00 05/26/23 08:32 Amlodipine 2.5 Mg Tab PO 7.5 mg DAILY [facility] Administration Atorvastatin Calcium 10 mg 05/23/23 21:00 05/25/23 20:20 Atorvastatin 10 Mg Tab PO Not Given HS [facility] Bisacodyl 10 mg 05/23/23 13:07 Bisacodyl 10 Mg Supp RECTAL DAILY PRN Constipation Budesonide 0.5 mg 05/23/23 08:00 05/26/23 07:43 Budesonide 0.5 Mg/2 Ml Nebu INHALATION 0.5 mg RT-BID [facility] Administration Dextrose/Water 25 ml 05/22/23 21:19 Dextrose 50% Syringe 50 Ml IVP PER PROTOCOL PRN Hypoglycemia Protocol Dextrose/Water 50 ml 05/22/23 21:19 Dextrose 50% Syringe 50 Ml IVP PER PROTOCOL PRN Hypoglycemia Protocol Famotidine 20 mg 05/24/23 21:00 05/26/23 08:32 Famotidine 20 Mg/2 Ml Vial IV 20 mg Q12HR [facility] Administration Fenofibrate 160 mg 05/24/23 06:00 05/26/23 06:27 Fenofibrate 160 Mg Tab PO 160 mg DAILY@0600 [facility] Administration Fluphenazine HCl 5 mg 05/24/23 14:30 05/26/23 08:31 Fluphenazine 5 Mg Tab PO 5 mg BID [facility] Administration Furosemide 40 mg 05/26/23 09:00 05/26/23 08:32 Furosemide 10 Mg/Ml 4 Ml Vial IV 05/26/23 21:01 40 mg Q12HR [facility] Administration Heparin Sodium (Porcine) 5,000 unit 05/24/23 21:00 05/26/23 08:31 Heparin Sodium,Porcine/Pf 5,000 Unit/0.5 Ml Syringe SQ 5,000 unit Q12HR [facility] Administration Vancomycin HCl 1,500 mg/ 500 mls @ 167 mls/hr 05/24/23 10:30 05/26/23 08:47 Sodium Chloride IVPB 167 mls/hr Q12HR [facility] Administration Insulin Aspart 0 unit 05/23/23 07:30 05/26/23 11:36 Insulin Aspart (Novolog) 100 Unit/Ml Vial SQ 2 unit AC-TID [facility] Administration Protocol Lacosamide 50 mg 05/25/23 00:00 05/26/23 08:47 Lacosamide Iv (Ages 17+ Yrs) 200 Mg/20 Ml Ml IVP 50 mg BID [facility] Administration Metoprolol Tartrate 12.5 mg 05/22/23 22:00 05/26/23 08:32 Metoprolol Tartrate 12.5 Mg Tab PO 12.5 mg TID [facility] Administration Multivitamins 1 each 05/24/23 09:00 05/26/23 08:32 Multivitamins, Thera 1 Each Tab PO 1 each DAILY [facility] Administration Naloxone HCl 0.2 mg 05/22/23 20:41 Naloxone 0.4 Mg/Ml 1 Ml Vial IV Q2M PRN Opioid Reversal Prednisone 30 mg 05/26/23 11:45 Prednisone 10 Mg Tab PO DAILY [facility] Trazodone HCl 50 mg 05/24/23 21:00 05/25/23 20:20 Trazodone Hcl 50 Mg Tab PO Not Given HS [facility] Objective - Vital Signs Vital signs: Vital Signs Temp 99.6 F 05/26/23 08:00 Pulse 67 05/26/23 08:00 Resp 20 05/26/23 08:00 BP 146/84 05/26/23 08:00 Pulse Ox 95 05/26/23 08:00 FiO2 Intake & Output 05/25/23 05/26/23 05/26/23 18:59 06:59 18:59 Intake Total 500 Output Total 750 Balance 500 -750 Intake: Intake, IV Titration 500 Amount Vancomycin 1,500 mg In 500 Sodium Chloride 0.9% 500 ml 500 ml @ 167 mls/hr IVPB Q12HR [facility] Rx#: [id number] Output: Urine 750 Other: Voiding Method Diaper Diaper Diaper Incontinent Incontinent Incontinent # Voids 1 3 - Exam -GENERAL: The patient is awake but confused and does not follow commands appropriately, not in any acute distress. Well developed, well nourished. HEENT: Pupils are round and equally reacting to light. EOMI. No scleral icterus. No conjunctival pallor. Normocephalic, atraumatic. No pharyngeal erythema. No thyromegaly. CARDIOVASCULAR: S1 and S2 present. No murmurs, rubs, or gallops. PULMONARY: Chest is clear to auscultation, no wheezing , no crackles. ABDOMEN: Soft, nontender, nondistended, normoactive bowel sounds. No palpable o rganomegaly. MUSCULOSKELETAL: No joint swelling or deformity. EXTREMITIES: No cyanosis, clubbing, or pedal edema. NEUROLOGICAL: Gross neurological examination did not reveal any focal deficits. SKIN: No rashes. no petechiae. - Labs CBC & Chem 7: 05/26/23 08:04 05/26/23 08:04 Labs: Abnormal Lab Results - Last 24 Hours (Table) 05/25/23 05/25/23 05/25/23 Range/Units 12:37 16:21 20:09 MCHC (31.0-37.0) g/dL RDW (11.5-15.5) % Plt Count (150-450) k/uL Lymphocytes # (1.0-4.8) k/uL Chloride (98-107) mmol/L Glucose (74-99) mg/dL POC Glucose (mg/dL) 169 H 176 H 171 H (70-110) mg/dL Calcium (8.4-10.2) mg/dL Delta Bilirubin (0.0-0.2) mg/dL Total Protein (6.3-8.2) g/dL Albumin (3.5-5.0) g/dL 05/26/23 05/26/23 05/26/23 Range/Units 05:58 08:04 08:04 MCHC 29.6 L (31.0-37.0) g/dL RDW 16.7 H (11.5-15.5) % Plt Count 135 L (150-450) k/uL Lymphocytes # 0.7 L (1.0-4.8) k/uL Chloride 112 H (98-107) mmol/L Glucose 202 H (74-99) mg/dL POC Glucose (mg/dL) 191 H (70-110) mg/dL Calcium 8.3 L (8.4-10.2) mg/dL Delta Bilirubin 0.3 H (0.0-0.2) mg/dL Total Protein 5.6 L (6.3-8.2) g/dL Albumin 3.2 L (3.5-5.0) g/dL 05/26/23 Range/Units 11:20 MCHC (31.0-37.0) g/dL RDW (11.5-15.5) % Plt Count (150-450) k/uL Lymphocytes # (1.0-4.8) k/uL Chloride (98-107) mmol/L Glucose (74-99) mg/dL POC Glucose (mg/dL) 196 H (70-110) mg/dL Calcium (8.4-10.2) mg/dL Delta Bilirubin (0.0-0.2) mg/dL Total Protein (6.3-8.2) g/dL Albumin (3.5-5.0) g/dL Microbiology - Last 24 Hours (Table) 05/24/23 11:30 Blood Culture - Preliminary Blood 05/23/23 11:31 Blood Culture - Preliminary Blood 05/22/23 17:50 Blood Culture Gram Stain - Preliminary Blood Blood Culture - Preliminary Coagulase Negative Staph 05/22/23 17:35 Blood Culture Gram Stain - Preliminary Blood Blood Culture - Preliminary Coagulase Negative Staph Assessment and Plan Assessment: Altered mental status, most likely toxic/metabolic encephalopathy. Most likely seizure. Patient was started on vimpat . Rule out LITIGATION ATTORNEY ASSOCIATE infection and lumbar puncture results are pending Positive Staph epi in blood culture, most likely contamination Leukocytosis, mild could be secondary to lithium effect versus infection Mild COPD exacerbation Schizophrenia Diabetes mellitus on insulin at home Hyperlipidemia Hypertension Plan: Continue with IV vancomycin Hold the lithium per neurologist recommendation and consult psychiatrist who added trazodone and Prolixin Neurology consult on the case. Continue with vimpat per neurologist Follow-up lumbar puncture results Infectious disease team of the case Follow-up follow-up was also blood culture Labs and medication were reviewed.. Continue same treatment. Continue with symptomatic treatment. Resume home medication. Monitor labs and vitals. DVT and GI prophylaxis. Further recommendations as per clinical course of the patient DVT prophylaxis: Subcutaneous heparin (hold for lumbar puncture, discussed with bed side nurse) GI Prophylaxis: Pepcid PT/OT: Pending Prognosis is guarded
--- NOTE | 2023-05-26 12:10 | P.PN ---
Subjective Progress Note Date: 05/26/23 Patient seen at bedside and the per the patient nurse she's about the same. It seems that the the patient was restarted on her prednisone by the primary team because the of respirator distress according to the nurse. Objective - Vital Signs Vital signs: Vital Signs Temp 99.6 F 05/26/23 08:00 Pulse 80 05/26/23 11:58 Resp 20 05/26/23 08:00 BP 146/84 05/26/23 08:00 Pulse Ox 95 05/26/23 08:00 FiO2 Intake & Output 05/25/23 05/26/23 05/26/23 18:59 06:59 18:59 Intake Total 500 110 Output Total 750 Balance 500 -640 Intake: Intake, IV Titration 500 Amount Vancomycin 1,500 mg In 500 Sodium Chloride 0.9% 500 ml 500 ml @ 167 mls/hr IVPB Q12HR DEMETRIO Rx#: [id number] Oral 110 Output: Urine 750 Other: Voiding Method Diaper Diaper Diaper Incontinent Incontinent Incontinent # Voids 1 3 - Exam GENERAL: The patient is lying in bed and is not in acute distress. NEUROLOGICAL: Examination is limited because of her condition. Patient very drowsy. She is awake of old to voice. She is oriented to self and the fall very few minimal commands such as showing a thumbs up and sticking the tongue. Otherwise she is very slow in responding or verbalizing. Pupils are round equal reactive to light. No facial weakness. Motor strength is very limited examination and was able to move hands. - Labs CBC & Chem 7: 05/26/23 08:04 05/26/23 08:04 Labs: Abnormal Lab Results - Last 24 Hours (Table) 05/25/23 05/25/23 05/25/23 Range/Units 12:37 16:21 20:09 MCHC (31.0-37.0) g/dL RDW (11.5-15.5) % Plt Count (150-450) k/uL Lymphocytes # (1.0-4.8) k/uL Chloride (98-107) mmol/L Glucose (74-99) mg/dL POC Glucose (mg/dL) 169 H 176 H 171 H (70-110) mg/dL Calcium (8.4-10.2) mg/dL Delta Bilirubin (0.0-0.2) mg/dL Total Protein (6.3-8.2) g/dL Albumin (3.5-5.0) g/dL 05/26/23 05/26/23 05/26/23 Range/Units 05:58 08:04 08:04 MCHC 29.6 L (31.0-37.0) g/dL RDW 16.7 H (11.5-15.5) % Plt Count 135 L (150-450) k/uL Lymphocytes # 0.7 L (1.0-4.8) k/uL Chloride 112 H (98-107) mmol/L Glucose 202 H (74-99) mg/dL POC Glucose (mg/dL) 191 H (70-110) mg/dL Calcium 8.3 L (8.4-10.2) mg/dL Delta Bilirubin 0.3 H (0.0-0.2) mg/dL Total Protein 5.6 L (6.3-8.2) g/dL Albumin 3.2 L (3.5-5.0) g/dL 05/26/23 Range/Units 11:20 MCHC (31.0-37.0) g/dL RDW (11.5-15.5) % Plt Count (150-450) k/uL Lymphocytes # (1.0-4.8) k/uL Chloride (98-107) mmol/L Glucose (74-99) mg/dL POC Glucose (mg/dL) 196 H (70-110) mg/dL Calcium (8.4-10.2) mg/dL Delta Bilirubin (0.0-0.2) mg/dL Total Protein (6.3-8.2) g/dL Albumin (3.5-5.0) g/dL Microbiology - Last 24 Hours (Table) 05/24/23 11:30 Blood Culture - Preliminary Blood 05/23/23 11:31 Blood Culture - Preliminary Blood 05/22/23 17:50 Blood Culture Gram Stain - Preliminary Blood Blood Culture - Preliminary Coagulase Negative Staph 05/22/23 17:35 Blood Culture Gram Stain - Preliminary Blood Blood Culture - Preliminary Coagulase Negative Staph Assessment and Plan Assessment: This is a 62-year-old woman who presented emergency department because of confusion and it's reported that she's been having confusion for the past couple months and she was recently been on prednisone for her asthma and has been restless and weak. Encephalopathy: Possibley toxic encephalopathy. Medication effect of prednisone for recent asthma as well as the lithium is a considered potentially toxic of level 1.8. She has leukocytosis but no fever initially was thought the leukocytosis was due to prednisone. Rule out infection such as SOUND CUTTER. Urine drug screen is positive for tricyclic antidepressant. MRI Brain is negative for acute or subacute stroke. Routine EEG was suspicious for epileptiform discharges over left fronto-temporal but prolonged was negative for discharges or seizures. History of schizophrenia Urine drug it's positive for tricyclic antidepressant Plan: Patient TSH, ammonia is what is in within normal limits. vitamin B12: 754 and folate level 19.50 Pending CSF study performed by Dr. Sidhu on 05/25/2023. MR the brain is reported as motion limited exam. No evidence of intracranial mass or acute subacute infarct. Minimal nonspecific white matter changes, likely secondary due to small vessel ischemic disease. Routine EEG is abnormal. The brachial slowing suggestive of moderate encephalopathy. There seems to be highly suspicious epileptiform discharges over left frontal temporal region. No seizure during the study and no focal slowing. Prolonged EEG 90 minutes performed on 05/25/2023: Is abnormal. No seizures were recorded. No epileptiform activity was present. The triphasic waves mentioned above are not epileptiform in nature. Triphasic waves can be seen in the setting of metabolic encephalopathy. They're frontally predominant delta range slowing mentioned above is not epileptiform in nature. The diffuse theta/delta range slowing mentioned above is not epileptiform nature. In combination these findings indicate moderate diffuse cerebral dysfunction as the may be seen in the toxic metabolic encephalopathy. I started the patient on Vimpat 50 mg 1 tablet twice a day on 05/24/23. Once mentation improves and continues to have no seizure-like activity will taper the Vimpat. Infection disease is on board. Avoid steroid if possible. We'll defer the rest of the medical management to the primary team and other specialist. The plan is discussed with patient's nurse. Time with Patient: Less than 30
[2023-05-26] MEDS ORDERED: guaiFENesin 600 MG TABLET.ER PO PRN (13:26)
--- NOTE | 2023-05-26 13:46 | P.PN ---
Progress Note - Text Progress Note Date: 05/26/23 Interval History: Patient was seen today for psychiatric follow-up for patient's delirium and sc hizoaffective disorder. Patient had an MRI yesterday and EEG, the EEG did show signs of toxic metabolic encephalopathy. Patient was seen lying in bed today and appeared to be mildly more awake. She was also mildly more redirectable during conversation, continues to be fairly concrete. She was not responding to internal stimuli. Patient was able to answer some basic questions, does not know today's date and does not know where she is however knows her full name and age. She does not know why she is in the hospital, continues to have poor levels of concentration. Apparently patient slept fairly last night after receiving Ativan. Mental Status Exam: General Appearance: Patient appears to be overweight, short hair, stated age is sedated/lethargic, improving moderately. Behavior: Patient is calmly lying in bed without any agitated behavior. Mildly sedated, proving Speech: Patient's speech is a bit clearer today, concrete Mood/Affect: Claims her mood is "fine" affect is constricted. Suicidality/Homicidality: Denies Perceptions: Denies Though content/process: [place], poverty of content. Memory and concentration: Poor concentration, alert and oriented 1, to her name and age only. Judgment and insight: poor/chronically limited, improving mildly IMPRESSIONS: Delirium likely secondary to medications including steroids and lithium Schizoaffective disorder depressive type PLAN: -Patient DOES NOT have decision making capacity at this time and is unable to reason through and communicate/appreciate the risks, benefits and alternatives to treatment. -Delirium precautions recommended with patient including - avoiding use of narcotics and HEMATOLOGY NURSE sedatives, limit anticholinergic medications when possible, frequent re-orientation, minimize use of restraints, open window shades during the day and close them at night -Would recommend the following medication changes/additions: PLEASE avoid benzos, steroids and opioids as this will increase chances of prolonged and worsening delirium/encephalopathy, trazodone 50 mg daily at bedtime for insomnia/mood, increase Prolixin by mouth 7 mg twice a day for psychosis/mood stabilization -reviewed MRI and EEG results. EEG suggestive of toxic-met encephalopathy -Communicated plan to patient's nurse -Will continue to follow along -Please contact with any questions
[2023-05-26 14:21] LABS: Glucose,CSF 128 mg/dL (40-70); Total Protein,CSF 65 mg/dL (12-60)
[2023-05-26 14:56] LABS: Appearance,CSF Clear; CSF Tube Number 4
[2023-05-26 15:33] LABS: Nucleated Cells, CSF 0 u/L (0-5); Red Blood Cell,CSF 1 u/L (0-10)
[2023-05-26 16:19] LABS: Glucose,Whole Blood 281 mg/dL (70-110)
[2023-05-26 20:09] LABS: Glucose,Whole Blood 203 mg/dL (70-110)
[2023-05-26] MEDS: ATORVASTATIN 10 MG TAB PO SCH (21:39)
[2023-05-26] MEDS: traZODone HCL 50 MG TAB PO SCH (21:40)
[2023-05-26] MEDS: VANCOMYCIN 1,750 MG in SODIUM CHLORIDE 0.9% 500 ML 500 ML IVPB SCH (21:43)
[2023-05-27] MEDS: FENOFIBRATE 160 MG TAB PO SCH (06:02)
[2023-05-27] MEDS: INSULIN ASPART (NovoLOG) 100 UNIT/ML VIAL SQ SCH ×3 (06:53→17:14)
--- NOTE | 2023-05-27 07:32 | XR ---
EXAMINATION TYPE: XR chest 1V portable DATE OF EXAM: 05/27/2023 Comparison: 05/24/2023 Clinical History: 62-year-old female pneumonia Findings: The heart is moderately enlarged. Interstitial/vascular prominence. Left base is underpenetrated and not well assessed. Impression: Moderate cardiomegaly persists. Interstitial/vascular prominence, possible pulmonary vascular congest ion persists. Left base underpenetrated and not well assessed.
[2023-05-27 08:16] LABS: African American GFR (CKD) 86 (>60 ml/min/1.73 sqM); Non-African American GFR(CKD) 75 (>60 ml/min/1.73 sqM)
[2023-05-27] MEDS: IPRATROPIUM-ALBUTEROL 3 ML NEB INHALATION SCH ×4 (08:54→23:58)
[2023-05-27] MEDS: BUDESONIDE 0.5 MG/2 ML NEBU INHALATION SCH ×2 (08:54→23:58)
[2023-05-27] MEDS: amLODIPine 2.5 MG TAB PO SCH (09:07)
[2023-05-27] MEDS: FAMOTIDINE 20 MG/2 ML VIAL IV SCH ×2 (09:07→20:57)
[2023-05-27] MEDS: MULTIVITAMINS, THERA 1 EACH TAB PO SCH (09:07)
[2023-05-27] MEDS: METOPROLOL TARTRATE 12.5 MG TAB PO SCH ×3 (09:07→20:57)
[2023-05-27] MEDS: HEPARIN SODIUM,PORCINE/PF 5,000 UNIT/0.5 ML SYRINGE SQ SCH (09:08)
[2023-05-27 09:12] LABS: C Reactive Protein 4.6 mg/dL (<1.0)
--- NOTE | 2023-05-27 09:19 | FL ---
EXAMINATION TYPE: FL barium swallow w video DATE OF EXAM: 05/27/2023 CLINICAL HISTORY: 62 year-old female rule out aspiration. Patient with history of schizophrenia and l ithium toxicity and coughing while eating. Dysphagia. TECHNIQUE: Deglutition study is performed utilizing thin liquid barium, honey, barium thick pudding, and barium coated cracker. COMPARISON: None. Total fluoroscopy time: 2 minutes 8 seconds. Total images: None. Real-time fluoroscopy support was provided to speech pathology. Total DAP: 168.18 mGycm2 FINDINGS: Swallow initiation was mildly delayed with occasional bolus free spilling to the level of the vallecu la. The oral and pharyngeal phases show satisfactory initiation and propagation with all modalities teste d. Normal mastication is seen with solid modalities tested. There is penetration demonstrated with thin liquids during the multiple bolus challenge. Otherwise, no additional evidence of penetration or aspiration with any modality tested. No significant pharyngeal residue was appreciated. IMPRESSION: Functional swallow. Please refer to speech therapist notes for further details if necessary.
[2023-05-27] MEDS: Lacosamide IV (ages 17+ yrs) 200 MG/20 ML ML IVP SCH (09:25)
[2023-05-27] MEDS: VANCOMYCIN 1,750 MG in SODIUM CHLORIDE 0.9% 500 ML 500 ML IVPB SCH ×2 (10:00→20:57)
--- NOTE | 2023-05-27 11:28 | P.PN ---
Progress Note - Text Progress Note Date: 05/27/23 Interval History: Patient was seen today for psychiatric follow-up for patient's delirium and sc hizoaffective disorder. Patient's daughter states that patient is more awake today and more clear in terms of her speech however was seen talking to herself in her room. Patient was laying in bed today and was awake watching television. She spoke briefly about the television program. She admitted to taking her medications, denies any overnight complaints. She continues to have fairly limited insight and judgment. She was not responding to internal stimuli today. She appeared to be more directable, knows her name and knows that she is in the hospital however does not know her date of or her age and the correct date today. Improving concentration. Proving hygiene. At this time she is denying any auditory or visual hallucinations. Denying any suicidal or homicidal ideations intent or plan. Mental Status Exam: General Appearance: Patient appears to be overweight, short hair, stated age is more awake, improving mildly Behavior: Patient is calmly lying in bed without any agitated behavior. Mildly improving and more cooperative Speech: Patient's speech is a bit clearer today, concrete Mood/Affect: Claims her mood is "ok" affect is constricted. Suicidality/Homicidality: Denies Perceptions: Denies Though content/process: [place], poverty of content. Memory and concentration: Mildly improving concentration, alert and oriented 2, to her name and knows that she is in the hospital. Judgment and insight: chronically limited/poor, improving mildly IMPRESSIONS: Delirium likely secondary to medications including steroids and lithium Schizoaffective disorder depressive type PLAN: -Patient DOES NOT have decision making capacity at this time and is unable to reason through and communicate/appreciate the risks, benefits and alternatives to treatment. -Delirium precautions recommended with patient including - avoiding use of narcotics and LOC[employer]S ADMINSTRATOR sedatives, limit anticholinergic medications when possible, frequent re-orientation, minimize use of restraints, open window shades during the day and close them at night -Would recommend the following medication changes/additions: PLEASE avoid benzos, steroids and opioids as this will increase chances of prolonged and worsening delirium/encephalopathy, trazodone 50 mg daily at bedtime for insomnia/mood, Prolixin by mouth 7 mg twice a day for psychosis/mood stabilization -reviewed MRI and EEG results. EEG suggestive of toxic-met encephalopathy, this improving -patient follows up with her psychiatrist at [facility] Dr Cannon. -Seems unlikely that patient is able to manage ADL and IADLs at this time and unsure about going forward, would suggest primary to team to evaluate with SW and also januarydian more suitable options for discharge or placement. -Communicated plan to patient's nurse -at this time psychiatry will sign off, if patients condition worsens or if any further questions please contact [facility] [place], [place] - lai. -Please contact with any questions
[2023-05-27 11:39] LABS: Glucose,Whole Blood 265 mg/dL (70-110)
--- NOTE | 2023-05-27 13:37 | P.PN ---
Subjective Progress Note Date: 05/27/23 On follow-up seeing the patient and the cord to nurse her mentation and is improved today compared to yesterday somewhat. No seizure-like activity noted. Upon seeing the patient she was more awake today and was sitting up in bed working with the therapy team. She denies of any headache. Objective - Vital Signs Vital signs: Vital Signs Temp 98.4 F 05/27/23 12:00 Pulse 78 05/27/23 12:02 Resp 20 05/27/23 12:00 BP 138/70 05/27/23 12:00 Pulse Ox 93 L 05/27/23 12:00 FiO2 Intake & Output 05/26/23 05/27/23 05/27/23 18:59 06:59 18:59 Intake Total 220 Output Total 750 1700 Balance -530 -1700 Weight 108 kg Intake: Oral 220 Output: Urine 750 1700 Other: Voiding Method Diaper Diaper Diaper Incontinent Incontinent Incontinent # Voids 4 - Exam GENERAL: The patient is sitting on side of bed and is not in acute distress. NEUROLOGICAL: The patient is more awake today compared to that the last couple days. She c orrectly stated her name as well as her date of . She could not tell me where she was at or the current time. She continues to be slow in responding but better than last couple days. Language is limited No facial weakness. No dysarthria. Moror: the strength is limited assessment because of her cooperation but is able to lift the briefly bilateral upper extremity above gravity as well as lowers. - Labs CBC & Chem 7: 05/26/23 08:04 05/27/23 07:35 Labs: Abnormal Lab Results - Last 24 Hours (Table) 05/25/23 05/26/23 05/26/23 Range/Units 14:30 16:18 20:07 POC Glucose (mg/dL) 281 H 203 H (70-110) mg/dL C-Reactive Protein (<1.0) mg/dL CSF Glucose 128 H (40-70) mg/dL CSF Total Protein 65 H (12-60) mg/dL 05/27/23 05/27/23 Range/Units 07:35 11:38 POC Glucose (mg/dL) 265 H (70-110) mg/dL C-Reactive Protein 4.6 H (<1.0) mg/dL CSF Glucose (40-70) mg/dL CSF Total Protein (12-60) mg/dL Microbiology - Last 24 Hours (Table) 05/24/23 11:30 Blood Culture - Preliminary Blood 05/23/23 11:31 Blood Culture - Preliminary Blood 05/22/23 17:35 Blood Culture Gram Stain - Final Blood Blood Culture - Final Staphylococcus epidermidis 05/22/23 17:50 Blood Culture Gram Stain - Final Blood Blood Culture - Final Staphylococcus epidermidis Assessment and Plan Assessment: This is a 62-year-old woman who presented emergency department because of confusion and it's reported that she's been having confusion for the past couple months and she was recently been on prednisone for her asthma and has been restless and weak. Encephalopathy: Possibley toxic encephalopathy. Medication effect of prednisone for recent asthma as well as the lithium is a considered potentially toxic of level 1.8. CSF study is negative for any underlying the infection SUrine drug screen is positive for tricyclic antidepressant. MRI Brain is negative for acute or subacute stroke. Routine EEG was suspicious for epileptiform discharges over left fronto-temporal but prolonged was negative for discharges or seizures--mentation is improving History of schizophrenia Urine drug it's positive for tricyclic antidepressant Plan: Patient TSH, ammonia is what is in within normal limits. vitamin B12: 754 and folate level 19.50 CSF study 05/25/2023: It is clear, colorless, red blood cells 1, total nuclear cells 0, glucose is 128 and the protein is 65 (total protein range is 12-60). MR the brain is reported as motion limited exam. No evidence of intracranial mass or acute subacute infarct. Minimal nonspecific white matter changes, lik carole secondary due to small vessel ischemic disease. Routine EEG is abnormal. The brachial slowing suggestive of moderate encephalopathy. There seems to be highly suspicious epileptiform discharges o yari left frontal temporal region. No seizure during the study and no focal slowing. Prolonged EEG 90 minutes performed on 05/25/2023: Is abnormal. No seizures were recorded. No epileptiform activity was present. The triphasic waves mentioned above are not epileptiform in nature. Triphasic waves can be seen in the setting of metabolic encephalopathy. They're frontally predominant delta range slowing mentioned above is not epileptiform in nature. The diffuse theta/delta range slowing mentioned above is not epileptiform nature. In combination these findings indicate moderate diffuse cerebral dysfunction as the may be seen in the toxic metabolic encephalopathy. I started the patient on Vimpat 50 mg 1 tablet twice a day on 05/24/23. Since her mentation is improving I will wean down Vimpat to 50mg daily. Then will discontinue down the line once back to baseline. Infection disease is on board. Avoid steroid if possible. We'll defer the rest of the medical management to the primary team and other specialist. The plan is discussed with patient's nurse. Time with Patient: Less than 30
--- NOTE | 2023-05-27 14:32 | P.PN ---
Subjective Progress Note Date: 05/27/23 78 years old female with multiple medical problems She presents with altered mental status candidate to toxic encephalopathy suspected by neurologist secondary to lithium toxicity, level on admission was 1.8 with a reference range going up to 1.5, release him was held currently, and psychiatry team were consulted. Patient when asked about her name she says a stiphanae (her name is Kat) , but she can tell last name correctly as Caesar, she answers questions appropriately about she fails to follow commands. She denies any specific complaints but this couldn't be affected by her mentation. Also patient has mild leukocytosis which could be explained also by lithium affect. However blood culture came back positive for staph. epi with further sensitivity is still pending. Patient was started on IV vancomycin. Vital signs stable and afebrile. Doppler velocity 13,000 klononpin and lithium are on hold for now. EEG is pending. ammonia is low. CT of the head and neck was unremarkable for acute process. 05/25/2023 Patient awake but she still confused, she can tell she is in hospital in [facility] but she could not tell the name of the hospital she could not tell that time or the name of the president. Patient had no insight into her illness and answer some questions appropriately while other questions she started laughing inappropriately related to her confusion. Patient looks like she has generalized weakness, her weakness is more on the right side but this is limited by patient change in mentation. No other new complaints. Hemodynamically stable. She remains on IV vancomycin for staph epidermidis positive blood culture. neurologist started the patient on Vimpat for EEG showing left frontal discharged with no seizure Eufemia remains on hold for psychiatrist and to start trazodone and Prolixin. keppra is on hold MRI of the brain and lumbar puncture pending 05/26/2023 Patient remains somewhat confused, laughing inappropriately at times. MRI of the brain: No acute stroke or mass EEG: Frequent high amplitude triphasic waves, delta waves and other waves which per note of note epileptiform in nature and they are seen in toxic/metabolic Encephalopathy. Patient was already started on vimpat by neurologist She has positive blood culture with coagulase negative staph, possible contamination. Repeat blood culture are still pending. Patient remains on IV vancomycin Her breathing is improving after stress echo for Lasix and most likely patient has mild COPD exacerbation given her history of smoking. We will change her steroids into prednisone 30 mg daily Patient is status post lumbar puncture yesterday. Results are still pending 05/27 : Patient seen and evaluated bedside. Patient caregivers Bedside as well mentation has improved. Lumbar puncture negative for acute infection. Patient is alert to person and able to have a communication Objective - Vital Signs Vital signs: Vital Signs Temp 98.4 F 05/27/23 12:00 Pulse 78 05/27/23 12:02 Resp 20 05/27/23 12:00 BP 138/70 05/27/23 12:00 Pulse Ox 93 L 05/27/23 12:00 FiO2 Intake & Output 05/26/23 05/27/23 05/27/23 18:59 06:59 18:59 Intake Total 220 Output Total 750 1700 300 Balance -530 -1700 -300 Weight 108 kg Intake: Oral 220 Output: Urine 750 1700 300 Other: Voiding Method Diaper Diaper Diaper Incontinent Incontinent Incontinent # Voids 4 - Exam PHYSICAL EXAMINATION: GENERAL: The patient is alert and oriented x1 , ill appearance HEENT: Pupils are round and equally reacting to light. EOMI. No scleral icterus. No conjunctival pallor. Normocephalic, atraumatic. No pharyngeal erythema. No thyromegaly. CARDIOVASCULAR: S1 and S2 present. No murmurs, rubs, or gallops. PULMONARY: Chest is clear to auscultation, no wheezing or crackles. ABDOMEN: Soft, nontender, nondistended, normoactive bowel sounds. No palpable organomegaly. MUSCULOSKELETAL: No joint swelling or deformity. EXTREMITIES: No cyanosis, clubbing, or pedal edema. NEUROLOGICAL: Gross neurological examination did not reveal any focal deficits. - Labs CBC & Chem 7: 05/26/23 08:04 05/27/23 07:35 Labs: Abnormal Lab Results - Last 24 Hours (Table) 05/26/23 05/26/23 05/27/23 Range/Units 16:18 20:07 07:35 POC Glucose (mg/dL) 281 H 203 H (70-110) mg/dL C-Reactive Protein 4.6 H (<1.0) mg/dL 05/27/23 Range/Units 11:38 POC Glucose (mg/dL) 265 H (70-110) mg/dL C-Reactive Protein (<1.0) mg/dL Microbiology - Last 24 Hours (Table) 05/24/23 11:30 Blood Culture - Preliminary Blood 05/23/23 11:31 Blood Culture - Preliminary Blood 05/22/23 17:35 Blood Culture Gram Stain - Final Blood Blood Culture - Final Staphylococcus epidermidis 05/22/23 17:50 Blood Culture Gram Stain - Final Blood Blood Culture - Final Staphylococcus epidermidis Assessment and Plan Assessment: Assessment and plan Acute toxic/metabolic encephalopathy Acute delirium Positive Staph epi in blood culture, most likely contamination COPD exacerbation Schizophrenia Diabetes mellitus on insulin at home Hyperlipidemia Hypertension Plan: Continue with IV vancomycin, infectious disease following. Follow up on CRP and pro-calcitonin is Hold the lithium per neurologist recommendation and consult psychiatrist who added trazodone and Prolixin Continue with vimpat per neurologist , weaned down by neurology Follow-up lumbar puncture negative for infection Blood cultures 05/22 staph epidermidis, repeat blood cultures no growth Will need physical therapy occupational therapy evaluation, reorientation
[2023-05-27 16:35] LABS: Glucose,Whole Blood 218 mg/dL (70-110)
[2023-05-27] MEDS: LACOSAMIDE 50 MG TABLET PO SCH (17:14)
[2023-05-27 20:13] LABS: Glucose,Whole Blood 234 mg/dL (70-110)
[2023-05-27] MEDS: traZODone HCL 50 MG TAB PO SCH (20:57)
[2023-05-27] MEDS: HEPARIN SODIUM,PORCINE 5,000 UNIT/ML 1 ML VIAL SQ SCH (20:57)
[2023-05-27] MEDS: ATORVASTATIN 10 MG TAB PO SCH (20:57)
[2023-05-28] MEDS: FENOFIBRATE 160 MG TAB PO SCH (06:08)
[2023-05-28] MEDS: INSULIN ASPART (NovoLOG) 100 UNIT/ML VIAL SQ SCH ×3 (06:08→17:00)
[2023-05-28 06:10] LABS: Glucose,Whole Blood 244 mg/dL (70-110)
[2023-05-28] MEDS: IPRATROPIUM-ALBUTEROL 3 ML NEB INHALATION SCH ×4 (07:46→21:38)
[2023-05-28] MEDS: BUDESONIDE 0.5 MG/2 ML NEBU INHALATION SCH ×2 (07:46→21:38)
[2023-05-28 08:30] LABS: Anisocytosis Slight; HCT 43.9 % (34.0-46.0); HGB 13.3 gm/dL (11.4-16.0); Hypochromasia Marked; MCH 28.1 pg (25.0-35.0); MCHC 30.2 g/dL (31.0-37.0); Mean Platelet Volume 9.1; Platelet Count 148 k/uL (150-450); RBC 4.71 m/uL (3.80-5.40); RDW 16.8 % (11.5-15.5); WBC 8.2 k/uL (3.8-10.6)
[2023-05-28 08:51] LABS: African American GFR (CKD) >90 (>60 ml/min/1.73 sqM); Anion Gap 5 mmol/L; Blood Urea Nitrogen 16 mg/dL (7-17); C Reactive Protein 3.8 mg/dL (<1.0); Calcium 8.6 mg/dL (8.4-10.2); Carbon Dioxide 28 mmol/L (22-30); Chloride 108 mmol/L (98-107); Glucose 269 mg/dL (74-99); Non-African American GFR(CKD) 79 (>60 ml/min/1.73 sqM); Potassium 4.2 mmol/L (3.5-5.1); Sodium 141 mmol/L (137-145)
[2023-05-28] MEDS: VANCOMYCIN 1,750 MG in SODIUM CHLORIDE 0.9% 500 ML 500 ML IVPB SCH ×2 (08:59→20:34)
[2023-05-28] MEDS: FAMOTIDINE 20 MG/2 ML VIAL IV SCH ×2 (09:00→20:34)
[2023-05-28] MEDS: amLODIPine 2.5 MG TAB PO SCH (09:00)
[2023-05-28] MEDS: LACOSAMIDE 50 MG TABLET PO SCH (09:00)
[2023-05-28] MEDS: MULTIVITAMINS, THERA 1 EACH TAB PO SCH (09:00)
[2023-05-28] MEDS: HEPARIN SODIUM,PORCINE 5,000 UNIT/ML 1 ML VIAL SQ SCH ×2 (09:00→20:34)
[2023-05-28] MEDS: METOPROLOL TARTRATE 12.5 MG TAB PO SCH ×3 (09:00→20:35)
[2023-05-28 11:30] LABS: Glucose,Whole Blood 279 mg/dL (70-110)
--- NOTE | 2023-05-28 13:03 | P.PN ---
Subjective Progress Note Date: 05/28/23 78 years old female with multiple medical problems She presents with altered mental status candidate to toxic encephalopathy suspected by neurologist secondary to lithium toxicity, level on admission was 1.8 with a reference range going up to 1.5, release him was held currently, and psychiatry team were consulted. Patient when asked about her name she says a stiphanae (her name is Kat) , but she can tell last name correctly as Caesar, she answers questions appropriately about she fails to follow commands. She denies any specific complaints but this couldn't be affected by her mentation. Also patient has mild leukocytosis which could be explained also by lithium affect. However blood culture came back positive for staph. epi with further sensitivity is still pending. Patient was started on IV vancomycin. Vital signs stable and afebrile. Doppler velocity 13,000 klononpin and lithium are on hold for now. EEG is pending. ammonia is low. CT of the head and neck was unremarkable for acute process. 05/25/2023 Patient awake but she still confused, she can tell she is in hospital in [facility] but she could not tell the name of the hospital she could not tell that time or the name of the president. Patient had no insight into her illness and answer some questions appropriately while other questions she started laughing inappropriately related to her confusion. Patient looks like she has generalized weakness, her weakness is more on the right side but this is limited by patient change in mentation. No other new complaints. Hemodynamically stable. She remains on IV vancomycin for staph epidermidis positive blood culture. neurologist started the patient on Vimpat for EEG showing left frontal discharged with no seizure Eufemia remains on hold for psychiatrist and to start trazodone and Prolixin. keppra is on hold MRI of the brain and lumbar puncture pending 05/26/2023 Patient remains somewhat confused, laughing inappropriately at times. MRI of the brain: No acute stroke or mass EEG: Frequent high amplitude triphasic waves, delta waves and other waves which per note of note epileptiform in nature and they are seen in toxic/metabolic Encephalopathy. Patient was already started on vimpat by neurologist She has positive blood culture with coagulase negative staph, possible contamination. Repeat blood culture are still pending. Patient remains on IV vancomycin Her breathing is improving after stress echo for Lasix and most likely patient has mild COPD exacerbation given her history of smoking. We will change her steroids into prednisone 30 mg daily Patient is status post lumbar puncture yesterday. Results are still pending 05/27 : Patient seen and evaluated bedside. Patient caregivers Bedside as well mentation has improved. Lumbar puncture negative for acute infection. Patient is alert to person and able to have a communication 05/28: Patient seen and evaluated bedside, patient caregivers at bedside as well. Plan was to discharge patient back to facility however patient was more lethargic. After discussion with neurology Vimpat discontinued. Patient has been awake through most of the night hence dose of trazodone will be increased overnight. Encouraged to keep patient awakes with a day. Follow-up on ammonia levels CBC and basic metabolic panel. We'll plan on discontinuing vancomycin after discussion with infectious disease Objective - Vital Signs Vital signs: Vital Signs Temp 97.9 F 05/28/23 09:14 Pulse 70 05/28/23 11:46 Resp 18 05/28/23 11:46 BP 124/57 05/28/23 11:46 Pulse Ox 92 L 05/28/23 11:46 FiO2 Intake & Output 05/27/23 05/28/23 05/28/23 18:59 06:59 18:59 Intake Total 240 240 420 Output Total 300 300 Balance -60 -60 420 Weight 108 kg 106 kg Intake: Oral 240 240 420 Output: Urine 300 300 Other: Voiding Method Diaper External Catheter Diaper Incontinent # Voids 3 1 - Exam PHYSICAL EXAMINATION: GENERAL: The patient is alert and oriented x0 , drowsy ill appearance HEENT: Pupils are round and equally reacting to light. EOMI. No scleral icterus. No conjunctival pallor. Normocephalic, atraumatic. No pharyngeal erythema. No thyromegaly. CARDIOVASCULAR: S1 and S2 present. No murmurs, rubs, or gallops. PULMONARY: Chest is clear to auscultation, no wheezing or crackles. ABDOMEN: Soft, nontender, nondistended, normoactive bowel sounds. No palpable organomegaly. MUSCULOSKELETAL: No joint swelling or deformity. EXTREMITIES: No cyanosis, clubbing, or pedal edema. NEUROLOGICAL: Exam limited patient drowsy and lethargic does wake up to verbal commands however however go back to sleep. No focal deficit noted - Labs CBC & Chem 7: 05/28/23 07:38 05/28/23 07:38 Labs: Abnormal Lab Results - Last 24 Hours (Table) 05/27/23 05/27/23 05/28/23 Range/Units 16:33 20:12 06:08 MCHC (31.0-37.0) g/dL RDW (11.5-15.5) % Plt Count (150-450) k/uL Chloride (98-107) mmol/L Glucose (74-99) mg/dL POC Glucose (mg/dL) 218 H 234 H 244 H (70-110) mg/dL C-Reactive Protein (<1.0) mg/dL 05/28/23 05/28/23 05/28/23 Range/Units 07:38 07:38 11:29 MCHC 30.2 L (31.0-37.0) g/dL RDW 16.8 H (11.5-15.5) % Plt Count 148 L (150-450) k/uL Chloride 108 H (98-107) mmol/L Glucose 269 H (74-99) mg/dL POC Glucose (mg/dL) 279 H (70-110) mg/dL C-Reactive Protein 3.8 H (<1.0) mg/dL Microbiology - Last 24 Hours (Table) 05/25/23 14:30 CSF Culture - Preliminary Cerebral Spinal Fluid 05/24/23 11:30 Blood Culture - Preliminary Blood Assessment and Plan Assessment: Assessment and plan Acute toxic/metabolic encephalopathy Acute delirium Positive Staph epi in blood culture, most likely contamination COPD exacerbation Schizophrenia Diabetes mellitus on insulin at home Hyperlipidemia Hypertension Plan: Continue with IV vancomycin, infectious disease following. Follow up on CRP and pro-calcitonin trending down, pro-calcitonin negative Hold the lithium per neurologist recommendation and consultED psychiatrist who added trazodone and Prolixin Continue with vimpat per neurologist , weaned down by neurology, discontinued Vimpat on 05/28 Follow-up lumbar puncture negative for infection Blood cultures 05/22 staph epidermidis, repeat blood cultures no growth We'll continue with reorientation with plan to discharge to facility once mentation improves
--- NOTE | 2023-05-28 13:10 | P.PN ---
Subjective Progress Note Date: 05/28/23 Principal diagnosis: Leukocytosis and a positive blood culture Patient is a 62-year-old female with a past medical history significant diabetes mellitus currently care home resident the patient has been brought into the hospital for evaluation of mental status changes symptom has been going on for a few days and patient also have increased falls which has been attributed to the patient being started on prednisone last month, patient was noticed to have elevated white count on admission which was attributed to possible steroids subsequently blood cultures came back 2 out of 2 with gram- positive cocci in cluster on today's evaluation that is 05/28/2023, patient remains to be afebrile, the patient is breathing comfortably on a 2 L nasal cannula oxygen, patient is awake and alert compared to admission and is being fed lunch by the family member still mention some cough but no sputum production, patient denies having any nausea or vomiting and no diarrhea has been reported Patient did have a white count of 8.2, creatinine is 0.81, pro calcitonin of 0.09 with a repeat reading of 0.07 and 0.08, did have a CRP of 4.3, blood cultures 2 out of 2 with the gram-positive cocci in cluster, blood culture repeated on 05/23/2020 as well as 05/24/2023 so far pending, patient did have LP , CSF did shows glucose of 128 protein of 65 and no nucleated cells, patient did have a videofluoroscopic swallow and no mention of any aspiration, chest x-ray 05/27/2023 moderate cardiomegaly pulmonary vascular congestion Objective - Vital Signs Vital signs: Vital Signs Temp 97.9 F 05/28/23 09:14 Pulse 70 05/28/23 11:46 Resp 18 05/28/23 11:46 BP 124/57 05/28/23 11:46 Pulse Ox 92 L 05/28/23 11:46 FiO2 Intake & Output 05/27/23 05/28/23 05/28/23 18:59 06:59 18:59 Intake Total 240 240 420 Output Total 300 300 Balance -60 -60 420 Weight 108 kg 106 kg Intake: Oral 240 240 420 Output: Urine 300 300 Other: Voiding Method Diaper External Catheter Diaper Incontinent # Voids 3 1 - Exam GENERAL DESCRIPTION: Middle-age female lying in bed in no distress RESPIRATORY SYSTEM: Unlabored breathing , decreased breath sounds at bases HEART: S1 S2 regular rate and rhythm , ABDOMEN: Soft , no tenderness EXTREMITIES: No edema feet - Labs CBC & Chem 7: 05/28/23 07:38 05/28/23 07:38 Labs: Abnormal Lab Results - Last 24 Hours (Table) 05/27/23 05/27/23 05/28/23 Range/Units 16:33 20:12 06:08 MCHC (31.0-37.0) g/dL RDW (11.5-15.5) % Plt Count (150-450) k/uL Chloride (98-107) mmol/L Glucose (74-99) mg/dL POC Glucose (mg/dL) 218 H 234 H 244 H (70-110) mg/dL C-Reactive Protein (<1.0) mg/dL 05/28/23 05/28/23 05/28/23 Range/Units 07:38 07:38 11:29 MCHC 30.2 L (31.0-37.0) g/dL RDW 16.8 H (11.5-15.5) % Plt Count 148 L (150-450) k/uL Chloride 108 H (98-107) mmol/L Glucose 269 H (74-99) mg/dL POC Glucose (mg/dL) 279 H (70-110) mg/dL C-Reactive Protein 3.8 H (<1.0) mg/dL Microbiology - Last 24 Hours (Table) 05/25/23 14:30 CSF Culture - Preliminary Cerebral Spinal Fluid 05/24/23 11:30 Blood Culture - Preliminary Blood Assessment and Plan (1) Leukocytosis Current Visit: Yes Status: Acute Code(s): D72.829 - ELEVATED WHITE BLOOD CELL COUNT, UNSPECIFIED SNOMED Code(s): 987815229 (2) Bacteremia Current Visit: Yes Status: Acute Code(s): R78.81 - BACTEREMIA SNOMED Code(s): 1190684 Plan: 1patient with elevated white count in this patient presented to hospital with mental status changes patient did not have any fever does not look toxic. The patient was started on prednisone outpatient setting could be related to this elevated white count patient did have a negative UA chest x-ray was negative for pneumonia abdominal soft on clinical examination no evidence of any cellulitis or joint swelling 2-patient did have a mildly elevated CRP but Percocet and is normal 3-patient did have a positive blood cultures 2 out of 2 that has been finalized as staph epidermidis with repeat blood culture has been negative possible skin contamination as we do not have any source for this positive blood culture we will discontinue vancomycin and monitor the patient closely off antibiotic therapy 4- with persistent mental status changes patient did have LP, results which shows normal glucose protein is mildly elevated however no WBC clinically doubt meningitis or encephalitis 5-patient with episodes of coughing after being fed , swallow evaluation did not show any aspiration chest x-rays mostly pulmonary vascular congestion and repeat pro-calcitonin is normal clinically doubt pneumonia, and will monitor the patient closely off antibiotic therapy Dictation was produced using [employer] dictation software. please excuse any grammatical, word or spelling errors. Time with Patient: Less than 30
[2023-05-28 13:38] LABS: VDRL, Qualitative CSF Nonreactive (Nonreactive)
--- NOTE | 2023-05-28 15:48 | P.PN ---
Subjective Progress Note Date: 05/28/23 Follow-up seeing the patient in which she was sitting in a recliner chair and was sleeping. Objective - Vital Signs Vital signs: Vital Signs Temp 97.9 F 05/28/23 09:14 Pulse 74 05/28/23 15:35 Resp 18 05/28/23 14:00 BP 124/57 05/28/23 11:46 Pulse Ox 92 L 05/28/23 11:46 FiO2 Intake & Output 05/27/23 05/28/23 05/28/23 18:59 06:59 18:59 Intake Total 240 240 420 Output Total 300 300 Balance -60 -60 420 Weight 108 kg 106 kg Intake: Oral 240 240 420 Output: Urine 300 300 Other: Voiding Method Diaper External Catheter Diaper Incontinent # Voids 3 1 - Exam GENERAL: The patient is sitting in a recliner chair and does not appear in acute distress. NEUROLOGICAL: Initially she was sleeping but she was awake both avoids that. She is oriented to self. She was able to follow simple commands such as showing a thumbs up smiling stick out her tongue. Her language is very slow. She is slow in following commands. Goals are round equal reactive to light. Motor the strength is limited but she and is able to lift of bilateral upper extremity above gravity but again slow - Labs CBC & Chem 7: 05/28/23 07:38 05/28/23 07:38 Labs: Abnormal Lab Results - Last 24 Hours (Table) 05/27/23 05/27/23 05/28/23 Range/Units 16:33 20:12 06:08 MCHC (31.0-37.0) g/dL RDW (11.5-15.5) % Plt Count (150-450) k/uL Chloride (98-107) mmol/L Glucose (74-99) mg/dL POC Glucose (mg/dL) 218 H 234 H 244 H (70-110) mg/dL C-Reactive Protein (<1.0) mg/dL 05/28/23 05/28/23 05/28/23 Range/Units 07:38 07:38 11:29 MCHC 30.2 L (31.0-37.0) g/dL RDW 16.8 H (11.5-15.5) % Plt Count 148 L (150-450) k/uL Chloride 108 H (98-107) mmol/L Glucose 269 H (74-99) mg/dL POC Glucose (mg/dL) 279 H (70-110) mg/dL C-Reactive Protein 3.8 H (<1.0) mg/dL Microbiology - Last 24 Hours (Table) 05/25/23 14:30 CSF Culture - Preliminary Cerebral Spinal Fluid 05/24/23 11:30 Blood Culture - Preliminary Blood Assessment and Plan Assessment: This is a 62-year-old woman who presented emergency department because of confusion and it's reported that she's been having confusion for the past couple months and she was recently been on prednisone for her asthma and has been restless and weak. Encephalopathy: Possibley toxic encephalopathy. Medication effect of prednisone for recent asthma as well as the lithium is a considered potentially toxic of level 1.8. CSF study is negative for any underlying the infection SUrine drug screen is positive for tricyclic antidepressant. MRI Brain is negative for acute or subacute stroke. Routine EEG was suspicious for epileptiform discharges over left fronto-temporal but prolonged was negative for discharges or seizures--mentation is improving History of schizophrenia Urine drug it's positive for tricyclic antidepressant Plan: Patient TSH, ammonia is what is in within normal limits. vitamin B12: 754 and folate level 19.50 CSF study 05/25/2023: It is clear, colorless, red blood cells 1, total nuclear cells 0, glucose is 128 and the protein is 65 (total protein range is 12-60). MR the brain is reported as motion limited exam. No evidence of intracranial mass or acute subacute infarct. Minimal nonspecific white matter changes, likely secondary due to small vessel ischemic disease. Routine EEG is abnormal. The brachial slowing suggestive of moderate encephalopathy. There seems to be highly suspicious epileptiform discharges over left frontal temporal region. No seizure during the study and no focal slowing. Prolonged EEG 90 minutes performed on 05/25/2023: Is abnormal. No seizures were recorded. No epileptiform activity was present. The triphasic waves mentioned above are not epileptiform in nature. Triphasic waves can be seen in the setting of metabolic encephalopathy. They're frontally predominant delta range slowing mentioned above is not epileptiform in nature. The diffuse theta/delta range slowing mentioned above is not epileptiform nature. In combination these findings indicate moderate diffuse cerebral dysfunction as the may be seen in the toxic metabolic encephalopathy. I stopped the Vimpat today since there is no seizure or discharges on the long- term EEG. Also stopped since the patient is making improvement. Infection disease is on board. Avoid steroid if possible. We'll defer the rest of the medical management to the primary team and other specialist. The plan is discussed with patient's primary attending. Time with Patient: Less than 30
[2023-05-28 16:26] LABS: Glucose,Whole Blood 287 mg/dL (70-110)
[2023-05-28 20:24] LABS: Glucose,Whole Blood 216 mg/dL (70-110)
[2023-05-28] MEDS: ATORVASTATIN 10 MG TAB PO SCH (20:35)
[2023-05-28] MEDS: traZODone HCL 100 MG TAB PO SCH (20:35)
[2023-05-29 06:10] LABS: Glucose,Whole Blood 209 mg/dL (70-110)
[2023-05-29] MEDS: INSULIN ASPART (NovoLOG) 100 UNIT/ML VIAL SQ SCH ×4 (06:16→17:11)
[2023-05-29] MEDS: FENOFIBRATE 160 MG TAB PO SCH (06:16)
[2023-05-29] MEDS ORDERED: VANCOMYCIN TROUGH DUE 1 EACH MISC MISCELLANE ONE (08:00)
[2023-05-29] MEDS: BUDESONIDE 0.5 MG/2 ML NEBU INHALATION SCH ×2 (08:10→20:44)
[2023-05-29] MEDS: IPRATROPIUM-ALBUTEROL 3 ML NEB INHALATION SCH ×4 (08:11→20:45)
[2023-05-29 08:16] LABS: Anisocytosis Slight; HCT 42.5 % (34.0-46.0); HGB 12.9 gm/dL (11.4-16.0); Hypochromasia Marked; MCH 28.2 pg (25.0-35.0); MCHC 30.4 g/dL (31.0-37.0); MCV 92.8 fL (80.0-100.0); Mean Platelet Volume 9.2; Platelet Count 150 k/uL (150-450); RBC 4.58 m/uL (3.80-5.40); RDW 16.7 % (11.5-15.5); WBC 9.6 k/uL (3.8-10.6)
[2023-05-29 08:30] LABS: African American GFR (CKD) 85 (>60 ml/min/1.73 sqM); Anion Gap 5 mmol/L; Blood Urea Nitrogen 14 mg/dL (7-17); Calcium 8.7 mg/dL (8.4-10.2); Carbon Dioxide 28 mmol/L (22-30); Chloride 111 mmol/L (98-107); Glucose 203 mg/dL (74-99); Non-African American GFR(CKD) 74 (>60 ml/min/1.73 sqM); Potassium 3.8 mmol/L (3.5-5.1); Sodium 144 mmol/L (137-145)
[2023-05-29] MEDS: HEPARIN SODIUM,PORCINE 5,000 UNIT/ML 1 ML VIAL SQ SCH ×2 (09:29→21:54)
[2023-05-29] MEDS: MULTIVITAMINS, THERA 1 EACH TAB PO SCH (09:29)
[2023-05-29] MEDS: amLODIPine 2.5 MG TAB PO SCH (09:29)
[2023-05-29] MEDS: METOPROLOL TARTRATE 12.5 MG TAB PO SCH ×3 (09:29→21:54)
[2023-05-29] MEDS: FAMOTIDINE 20 MG/2 ML VIAL IV SCH ×2 (09:30→21:55)
[2023-05-29] MEDS: VANCOMYCIN 1,750 MG in SODIUM CHLORIDE 0.9% 500 ML 500 ML IVPB SCH (09:31)
[2023-05-29 11:47] LABS: Glucose,Whole Blood 541 mg/dL (70-110)
[2023-05-29 12:00] LABS: Glucose,Whole Blood 343 mg/dL (70-110)
[2023-05-29] MEDS ORDERED: INSULIN DETEMIR (LEVEMIR) 100 UNIT/ML SYR SQ STA (12:18)
--- NOTE | 2023-05-29 13:43 | P.PN ---
Subjective Progress Note Date: 05/29/23 78 years old female with multiple medical problems She presents with altered mental status candidate to toxic encephalopathy suspected by neurologist secondary to lithium toxicity, level on admission was 1.8 with a reference range going up to 1.5, release him was held currently, and psychiatry team were consulted. Patient when asked about her name she says a stiphanae (her name is Kat) , but she can tell last name correctly as Caesar, she answers questions appropriately about she fails to follow commands. She denies any specific complaints but this couldn't be affected by her mentation. Also patient has mild leukocytosis which could be explained also by lithium affect. However blood culture came back positive for staph. epi with further sensitivity is still pending. Patient was started on IV vancomycin. Vital signs stable and afebrile. Doppler velocity 13,000 klononpin and lithium are on hold for now. EEG is pending. ammonia is low. CT of the head and neck was unremarkable for acute process. 05/25/2023 Patient awake but she still confused, she can tell she is in hospital in [facility] but she could not tell the name of the hospital she could not tell that time or the name of the president. Patient had no insight into her illness and answer some questions appropriately while other questions she started laughing inappropriately related to her confusion. Patient looks like she has generalized weakness, her weakness is more on the right side but this is limited by patient change in mentation. No other new complaints. Hemodynamically stable. She remains on IV vancomycin for staph epidermidis positive blood culture. neurologist started the patient on Vimpat for EEG showing left frontal discharged with no seizure Eufemia remains on hold for psychiatrist and to start trazodone and Prolixin. keppra is on hold MRI of the brain and lumbar puncture pending 05/26/2023 Patient remains somewhat confused, laughing inappropriately at times. MRI of the brain: No acute stroke or mass EEG: Frequent high amplitude triphasic waves, delta waves and other waves which per note of note epileptiform in nature and they are seen in toxic/metabolic Encephalopathy. Patient was already started on vimpat by neurologist She has positive blood culture with coagulase negative staph, possible contamination. Repeat blood culture are still pending. Patient remains on IV vancomycin Her breathing is improving after stress echo for Lasix and most likely patient has mild COPD exacerbation given her history of smoking. We will change her steroids into prednisone 30 mg daily Patient is status post lumbar puncture yesterday. Results are still pending 05/27 : Patient seen and evaluated bedside. Patient caregivers Bedside as well mentation has improved. Lumbar puncture negative for acute infection. Patient is alert to person and able to have a communication 05/28: Patient seen and evaluated bedside, patient caregivers at bedside as well. Plan was to discharge patient back to facility however patient was more lethargic. After discussion with neurology Vimpat discontinued. Patient has been awake through most of the night hence dose of trazodone will be increased overnight. Encouraged to keep patient awakes with a day. Follow-up on ammonia levels CBC and basic metabolic panel. We'll plan on discontinuing vancomycin after discussion with infectious disease 05/29: Patient seen and evaluated bedside mentation has improved significantly compared by guardian at bedside vision is able to talk alert and oriented 1. Noted to have hyperglycemia with blood glucose address. Started on Lantus. However home insulin unclear. Requested guardian to confirm home insulin dosing. Potential discharge within the next 24 hours. Discussed that clozapine has been discontinued during this hospital stay and at this point patient has been started on Prolixin which will be continued upon discharge with outpatient follow-up with psychiatry Objective - Vital Signs Vital signs: Vital Signs Temp 98.6 F 05/29/23 08:04 Pulse 66 05/29/23 12:00 Resp 18 05/29/23 12:00 BP 138/71 05/29/23 12:00 Pulse Ox 93 L 05/29/23 12:00 FiO2 Intake & Output 05/28/23 05/29/23 05/29/23 18:59 06:59 18:59 Intake Total 420 240 Output Total 750 Balance 420 -510 Weight 106.5 kg Intake: Oral 420 240 Output: Urine 750 Other: Voiding Method Diaper Diaper Diaper Incontinent Incontinent # Voids 1 2 - Exam PHYSICAL EXAMINATION: GENERAL: The patient is alert and oriented x1 , mentation has improved, following commands HEENT: Pupils are round and equally reacting to light. EOMI. No scleral icterus. No conjunctival pallor. Normocephalic, atraumatic. No pharyngeal erythema. No thyromegaly. CARDIOVASCULAR: S1 and S2 present. No murmurs, rubs, or gallops. PULMONARY: Chest is clear to auscultation, no wheezing or crackles. ABDOMEN: Soft, nontender, nondistended, normoactive bowel sounds. No palpable organomegaly. MUSCULOSKELETAL: No joint swelling or deformity. EXTREMITIES: No cyanosis, clubbing, or pedal edema. NEUROLOGICAL: Exam limited patient drowsy and lethargic does wake up to verbal commands however however go back to sleep. No focal deficit noted - Labs CBC & Chem 7: 05/29/23 07:38 05/29/23 07:38 Labs: Abnormal Lab Results - Last 24 Hours (Table) 05/28/23 05/28/23 05/29/23 Range/Units 16:22 20:22 06:09 MCHC (31.0-37.0) g/dL RDW (11.5-15.5) % Chloride (98-107) mmol/L Glucose (74-99) mg/dL POC Glucose (mg/dL) 287 H 216 H 209 H (70-110) mg/dL 05/29/23 05/29/23 05/29/23 Range/Units 07:38 07:38 11:37 MCHC 30.4 L (31.0-37.0) g/dL RDW 16.7 H (11.5-15.5) % Chloride 111 H (98-107) mmol/L Glucose 203 H (74-99) mg/dL POC Glucose (mg/dL) 541 H (70-110) mg/dL 05/29/23 Range/Units 11:58 MCHC (31.0-37.0) g/dL RDW (11.5-15.5) % Chloride (98-107) mmol/L Glucose (74-99) mg/dL POC Glucose (mg/dL) 343 H (70-110) mg/dL Microbiology - Last 24 Hours (Table) 05/23/23 11:31 Blood Culture - Final Blood 05/25/23 14:30 CSF Culture - Preliminary Cerebral Spinal Fluid Assessment and Plan Assessment: Assessment and plan Acute toxic/metabolic encephalopathy Acute delirium Positive Staph epi in blood culture, most likely contamination COPD exacerbation Schizophrenia Diabetes mellitus on insulin at home Hyperlipidemia Hypertension Plan: Patient seen IV vancomycin which has been discontinued by infectious disease hospital day 7 >> infectious disease was following. Follow up on CRP and pro- calcitonin trending down, pro-calcitonin negative Skin continue lithium per neurologist recommendation >> consulted psychiatrist who added trazodone and Prolixin Received vimpat per neurologist while inpatient, weaned down by neurology, discontinued Vimpat on 05/28 Follow-up lumbar puncture negative for infection Blood cultures 05/22 staph epidermidis, repeat blood cultures 05/24 no growth We'll continue with reorientation with plan to discharge to facility once mentation improves Regards to diabetes mellitus continue patient on Lantus twice a day, Humalog with meals as well as correctional insulin.>> Requested guardian to confirm home insulin dose
--- NOTE | 2023-05-29 13:48 | P.PN ---
Subjective Progress Note Date: 05/29/23 I'll follow up seeing the patient and the she is accompanied with her digital sales director (Jessy). She is sitting in a recliner chair and the per her caretakers she has known her for 10 years and she feels she is doing drastically better and feels she is almost back to baseline. Objective - Vital Signs Vital signs: Vital Signs Temp 98.6 F 05/29/23 08:04 Pulse 66 05/29/23 12:00 Resp 18 05/29/23 12:00 BP 138/71 05/29/23 12:00 Pulse Ox 93 L 05/29/23 12:00 FiO2 Intake & Output 05/28/23 05/29/23 05/29/23 18:59 06:59 18:59 Intake Total 420 240 Output Total 750 Balance 420 -510 Weight 106.5 kg Intake: Oral 420 240 Output: Urine 750 Other: Voiding Method Diaper Diaper Diaper Incontinent Incontinent # Voids 1 2 - Exam GENERAL: The patient is sitting in a recliner chair and does not appear in acute distress. NEUROLOGICAL: She is awake alert oriented to self and the stated she is in the hospital but stated to old name of the hospital of [facility]. Upon asking her current date she stated her date of . Unable to tell me the month. Upon showing her watch she correctly named but upon sure the pen and glasses she was having preservation for the watch. She was following simple commands showing thumbs up wiggling her toes stick out her tongue. She remains to be slow follow commands as well as responding. The pupils are round equal and reactive to light. Patient is tracking through out the room. No facial weakness appreciated. Her voice appears raspy. Motor: He is hard to assess because of her cooperation was able to briefly lift up bilateral upper extremity and was wiggling the toes symmetrically. - Labs CBC & Chem 7: 05/29/23 07:38 05/29/23 07:38 Labs: Abnormal Lab Results - Last 24 Hours (Table) 05/28/23 05/28/23 05/29/23 Range/Units 16:22 20:22 06:09 MCHC (31.0-37.0) g/dL RDW (11.5-15.5) % Chloride (98-107) mmol/L Glucose (74-99) mg/dL POC Glucose (mg/dL) 287 H 216 H 209 H (70-110) mg/dL 05/29/23 05/29/23 05/29/23 Range/Units 07:38 07:38 11:37 MCHC 30.4 L (31.0-37.0) g/dL RDW 16.7 H (11.5-15.5) % Chloride 111 H (98-107) mmol/L Glucose 203 H (74-99) mg/dL POC Glucose (mg/dL) 541 H (70-110) mg/dL 05/29/23 Range/Units 11:58 MCHC (31.0-37.0) g/dL RDW (11.5-15.5) % Chloride (98-107) mmol/L Glucose (74-99) mg/dL POC Glucose (mg/dL) 343 H (70-110) mg/dL Microbiology - Last 24 Hours (Table) 05/23/23 11:31 Blood Culture - Final Blood 05/25/23 14:30 CSF Culture - Preliminary Cerebral Spinal Fluid Assessment and Plan Assessment: This is a 62-year-old woman who presented emergency department because of confusion and it's reported that she's been having confusion for the past couple months and she was recently been on prednisone for her asthma and has been restless and weak. Encephalopathy: Possibley toxic encephalopathy. Medication effect of prednisone for recent asthma as well as the lithium is a considered potentially toxic of level 1.8. CSF study is negative for any underlying the infection Urine drug screen is positive for tricyclic antidepressant. MRI Brain is negative for acute or subacute stroke. Routine EEG was suspicious for epileptiform discharges over left fronto-temporal but prolonged was negative for discharges or seizures--mentation is improving (per digital sales director almost back to baseline) History of schizophrenia Urine drug it's positive for tricyclic antidepressant Plan: Patient TSH, ammonia is what is in within normal limits. vitamin B12: 754 and folate level 19.50 CSF study 05/25/2023: It is clear, colorless, red blood cells 1, total nuclear cells 0, glucose is 128 and the protein is 65 (total protein range is 12-60). MR the brain is reported as motion limited exam. No evidence of intracranial mass or acute subacute infarct. Minimal nonspecific white matter changes, likely secondary due to small vessel ischemic disease. Routine EEG is abnormal. The brachial slowing suggestive of moderate encephalop athy. There seems to be highly suspicious epileptiform discharges over left frontal temporal region. No seizure during the study and no focal slowing. Prolonged EEG 90 minutes performed on 05/25/2023: Is abnormal. No seizures were recorded. No epileptiform activity was present. The triphasic waves mentioned above are not epileptiform in nature. Triphasic waves can be seen in the setting of metabolic encephalopathy. They're frontally predominant delta range slowing mentioned above is not epileptiform in nature. The diffuse theta/delta range slowing mentioned above is not epileptiform nature. In combination these findings indicate moderate diffuse cerebral dysfunction as the may be seen in the toxic metabolic encephalopathy. I stopped the Vimpat on 05/28/2023 and per digital sales director (Jessy) today she looks better and almost back to baseline. There is no seizure or discharges on the l shaina-term EEG. Infection disease is on board. Avoid steroid if possible. We'll defer the rest of the medical management to the primary team and other specialist. The plan is discussed with patient's director of healthcare systems (Jessy) and her nurse. Will follow-up with patient sporadically. If patient continues to be making improvement and is back to baseline and there is no further neurological workup. Dr. Mercado will start service on 05/31/2023. Time with Patient: Less than 30
[2023-05-29 16:43] LABS: Glucose,Whole Blood 208 mg/dL (70-110)
[2023-05-29 20:40] LABS: Glucose,Whole Blood 157 mg/dL (70-110)
[2023-05-29] MEDS ORDERED: FUROSEMIDE 10 MG/ML 4 ML VIAL IV STA (21:02)
[2023-05-29] MEDS: traZODone HCL 100 MG TAB PO SCH (21:54)
[2023-05-29] MEDS: ATORVASTATIN 10 MG TAB PO SCH (21:54)
[2023-05-29] MEDS: INSULIN DETEMIR (LEVEMIR) 100 UNIT/ML SYR SQ SCH (21:54)
--- NOTE | 2023-05-29 23:03 | XR ---
EXAMINATION TYPE: XR chest 1V portable DATE OF EXAM: 05/29/2023 COMPARISON: 05/27/2023 INDICATION: Cough TECHNIQUE: Single frontal view of the chest is obtained. FINDINGS: The heart size is normal. The pulmonary vasculature is upper limits of normal. Mild increased bibasilar infiltrates may be present. Consider subsegmental atelectasis. Follow-up can be performed as clinically indicated. IMPRESSION: 1. Clinical consideration for mild bibasilar subsegmental atelectasis. Follow-up can be performed as clinically indicated
[2023-05-30 06:19] LABS: Glucose,Whole Blood 132 mg/dL (70-110)
[2023-05-30] MEDS: INSULIN ASPART (NovoLOG) 100 UNIT/ML VIAL SQ SCH ×6 (06:25→17:14)
[2023-05-30] MEDS: INSULIN DETEMIR (LEVEMIR) 100 UNIT/ML SYR SQ SCH ×2 (06:53→20:33)
[2023-05-30] MEDS: FENOFIBRATE 160 MG TAB PO SCH (06:53)
[2023-05-30] MEDS: IPRATROPIUM-ALBUTEROL 3 ML NEB INHALATION SCH ×4 (08:59→21:08)
[2023-05-30] MEDS: BUDESONIDE 0.5 MG/2 ML NEBU INHALATION SCH ×2 (08:59→21:08)
[2023-05-30] MEDS: HEPARIN SODIUM,PORCINE 5,000 UNIT/ML 1 ML VIAL SQ SCH ×2 (09:30→20:33)
[2023-05-30] MEDS: FAMOTIDINE 20 MG/2 ML VIAL IV SCH ×2 (09:31→20:32)
[2023-05-30] MEDS: MULTIVITAMINS, THERA 1 EACH TAB PO SCH (09:31)
[2023-05-30] MEDS: amLODIPine 2.5 MG TAB PO SCH (09:31)
[2023-05-30] MEDS: METOPROLOL TARTRATE 12.5 MG TAB PO SCH ×3 (09:31→20:32)
[2023-05-30 10:11] LABS: Anisocytosis Slight; HGB 12.2 gm/dL (11.4-16.0); Hypochromasia Marked; MCH 28.9 pg (25.0-35.0); MCHC 31.4 g/dL (31.0-37.0); MCV 92.1 fL (80.0-100.0); Mean Platelet Volume 9.4; Platelet Count 170 k/uL (150-450); RBC 4.23 m/uL (3.80-5.40); RDW 16.7 % (11.5-15.5); WBC 9.1 k/uL (3.8-10.6)
[2023-05-30 10:21] LABS: African American GFR (CKD) 59 (>60 ml/min/1.73 sqM); Anion Gap 8 mmol/L; Blood Urea Nitrogen 17 mg/dL (7-17); Carbon Dioxide 25 mmol/L (22-30); Chloride 105 mmol/L (98-107); Glucose 231 mg/dL (74-99); Non-African American GFR(CKD) 51 (>60 ml/min/1.73 sqM); Potassium 3.8 mmol/L (3.5-5.1); Sodium 138 mmol/L (137-145)
[2023-05-30 11:42] LABS: Glucose,Whole Blood 189 mg/dL (70-110)
--- NOTE | 2023-05-30 12:53 | P.PN ---
Subjective Progress Note Date: 05/30/23 78 years old female with multiple medical problems She presents with altered mental status candidate to toxic encephalopathy suspected by neurologist secondary to lithium toxicity, level on admission was 1.8 with a reference range going up to 1.5, release him was held currently, and psychiatry team were consulted. Patient when asked about her name she says a stiphanae (her name is Kat) , but she can tell last name correctly as Caesar, she answers questions appropriately about she fails to follow commands. She denies any specific complaints but this couldn't be affected by her mentation. Also patient has mild leukocytosis which could be explained also by lithium affect. However blood culture came back positive for staph. epi with further sensitivity is still pending. Patient was started on IV vancomycin. Vital signs stable and afebrile. Doppler velocity 13,000 klononpin and lithium are on hold for now. EEG is pending. ammonia is low. CT of the head and neck was unremarkable for acute process. 05/25/2023 Patient awake but she still confused, she can tell she is in hospital in [facility] but she could not tell the name of the hospital she could not tell that time or the name of the president. Patient had no insight into her illness and answer some questions appropriately while other questions she started laughing inappropriately related to her confusion. Patient looks like she has generalized weakness, her weakness is more on the right side but this is limited by patient change in mentation. No other new complaints. Hemodynamically stable. She remains on IV vancomycin for staph epidermidis positive blood culture. neurologist started the patient on Vimpat for EEG showing left frontal discharged with no seizure Eufemia remains on hold for psychiatrist and to start trazodone and Prolixin. keppra is on hold MRI of the brain and lumbar puncture pending 05/26/2023 Patient remains somewhat confused, laughing inappropriately at times. MRI of the brain: No acute stroke or mass EEG: Frequent high amplitude triphasic waves, delta waves and other waves which per note of note epileptiform in nature and they are seen in toxic/metabolic Encephalopathy. Patient was already started on vimpat by neurologist She has positive blood culture with coagulase negative staph, possible contamination. Repeat blood culture are still pending. Patient remains on IV vancomycin Her breathing is improving after stress echo for Lasix and most likely patient has mild COPD exacerbation given her history of smoking. We will change her steroids into prednisone 30 mg daily Patient is status post lumbar puncture yesterday. Results are still pending 05/27 : Patient seen and evaluated bedside. Patient caregivers Bedside as well mentation has improved. Lumbar puncture negative for acute infection. Patient is alert to person and able to have a communication 05/28: Patient seen and evaluated bedside, patient caregivers at bedside as well. Plan was to discharge patient back to facility however patient was more lethargic. After discussion with neurology Vimpat discontinued. Patient has been awake through most of the night hence dose of trazodone will be increased overnight. Encouraged to keep patient awakes with a day. Follow-up on ammonia levels CBC and basic metabolic panel. We'll plan on discontinuing vancomycin after discussion with infectious disease 05/29: Patient seen and evaluated bedside mentation has improved significantly compared by guardian at bedside vision is able to talk alert and oriented 1. Noted to have hyperglycemia with blood glucose address. Started on Lantus. However home insulin unclear. Requested guardian to confirm home insulin dosing. Potential discharge within the next 24 hours. Discussed that clozapine has been discontinued during this hospital stay and at this point patient has been started on Prolixin which will be continued upon discharge with outpatient follow-up with psychiatry 05/30: Patient seen and evaluated bedside, mentation has improved, patient is impulsive trying to get out of the chair at times fall precautions in place. Blood glucose better controlled with Lantus however home insulin regimen still not confirm guardian to bring home med list discussed with nursing staff potential discharge in the next 24 hours Objective - Vital Signs Vital signs: Vital Signs Temp 97.3 F L 05/30/23 09:28 Pulse 55 L 05/30/23 12:07 Resp 18 05/30/23 12:07 BP 117/71 05/30/23 12:07 Pulse Ox 94 L 05/30/23 12:07 FiO2 Intake & Output 05/29/23 05/30/23 05/30/23 18:59 06:59 18:59 Intake Total 1620 180 Balance 1620 180 Weight 114 kg Intake: Oral 1620 180 Other: Voiding Method Diaper Diaper Diaper Incontinent Incontinent Incontinent # Voids 1 - Exam PHYSICAL EXAMINATION: GENERAL: The patient is alert and oriented x1 , mentation has improved, following commands HEENT: Pupils are round and equally reacting to light. EOMI. No scleral icterus. No conjunctival pallor. Normocephalic, atraumatic. No pharyngeal erythema. No thyromegaly. CARDIOVASCULAR: S1 and S2 present. No murmurs, rubs, or gallops. PULMONARY: Chest is clear to auscultation, no wheezing or crackles. ABDOMEN: Soft, nontender, nondistended, normoactive bowel sounds. No palpable organomegaly. MUSCULOSKELETAL: No joint swelling or deformity. EXTREMITIES: No cyanosis, clubbing, or pedal edema. NEUROLOGICAL: Exam limited patient drowsy and lethargic does wake up to verbal commands however however go back to sleep. No focal deficit noted - Labs CBC & Chem 7: 05/30/23 09:44 05/30/23 09:44 Labs: Abnormal Lab Results - Last 24 Hours (Table) 05/29/23 05/29/23 05/30/23 Range/Units 16:40 20:38 06:18 RDW (11.5-15.5) % Creatinine (0.52-1.04) mg/dL Glucose (74-99) mg/dL POC Glucose (mg/dL) 208 H 157 H 132 H (70-110) mg/dL 05/30/23 05/30/23 05/30/23 Range/Units 09:44 09:44 11:40 RDW 16.7 H (11.5-15.5) % Creatinine 1.16 H (0.52-1.04) mg/dL Glucose 231 H (74-99) mg/dL POC Glucose (mg/dL) 189 H (70-110) mg/dL Microbiology - Last 24 Hours (Table) 05/24/23 11:30 Blood Culture - Final Blood 05/25/23 14:30 CSF Gram Stain - Preliminary Cerebral Spinal Fluid CSF Culture - Preliminary Assessment and Plan Assessment: Assessment and plan Acute toxic/metabolic encephalopathy Acute delirium Positive Staph epi in blood culture, most likely contamination COPD exacerbation Schizophrenia Diabetes mellitus on insulin at home Hyperlipidemia Hypertension Plan: * Patient seen IV vancomycin which has been discontinued by infectious disease hospital day 04/30 DC on 05/29 >> infectious disease was following. Follow up on CRP and pro-calcitonin trending down, pro-calcitonin negative * Discontinued lithium per neurologist recommendation >> consulted psychiatrist who added trazodone and Prolixin * Received vimpat per neurologist while inpatient, weaned down by neurology, discontinued Vimpat on 05/28 * Follow-up lumbar puncture negative for infection * Blood cultures 05/22 staph epidermidis, repeat blood cultures 05/24 no growth * We'll continue with reorientation with plan to discharge to facility once mentation improves * Regards to diabetes mellitus continue patient on Lantus twice a day, Humalog with meals as well as correctional insulin.>> Requested guardian to confirm home insulin dose
[2023-05-30 16:28] LABS: Glucose,Whole Blood 182 mg/dL (70-110)
--- NOTE | 2023-05-30 16:55 | P.PN ---
Subjective Progress Note Date: 05/29/23 Principal diagnosis: Leukocytosis and a positive blood culture Patient is a 62-year-old female with a past medical history significant diabetes mellitus currently care home resident the patient has been brought into the hospital for evaluation of mental status changes symptom has been going on for a few days and patient also have increased falls which has been attributed to the patient being started on prednisone last month, patient was noticed to have elevated white count on admission which was attributed to possible steroids subsequently blood cultures came back 2 out of 2 with gram- positive cocci in cluster on today's evaluation that is 05/29/2023, patient continues to be afebrile, the patient is breathing comfortably on a 2 L nasal cannula oxygen, patient is denies any chest pain or shortness of breath occasional cough but no sputum production no nausea no vomiting no abdominal pain no diarrhea Patient did have a white count of 9.6, creatinine is 0.85, pro calcitonin of 0.09 with a repeat reading of 0.07 and 0.08, did have a CRP of 4.3, blood cu ltures 2 out of 2 with the gram-positive cocci in cluster, blood culture repeated on 05/23/2020 as well as 05/24/2023 has been negative so far, patient did have LP , CSF did shows glucose of 128 protein of 65 and no nucleated cells, patient did have a videofluoroscopic swallow and no mention of any aspiration, chest x-ray 05/27/2023 moderate cardiomegaly pulmonary vascular congestion Objective - Vital Signs Vital signs: Vital Signs Temp 98.6 F 05/29/23 08:04 Pulse 74 05/29/23 08:20 Resp 20 05/29/23 08:05 BP 192/82 05/29/23 08:04 Pulse Ox 96 05/29/23 08:11 FiO2 Intake & Output 05/28/23 05/29/23 05/29/23 18:59 06:59 18:59 Intake Total 420 240 Output Total 750 Balance 420 -510 Weight 106.5 kg Intake: Oral 420 240 Output: Urine 750 Other: Voiding Method Diaper Diaper Diaper Incontinent Incontinent # Voids 1 2 - Exam GENERAL DESCRIPTION: Middle-age female lying in bed in no distress RESPIRATORY SYSTEM: Unlabored breathing , decreased breath sounds at bases HEART: S1 S2 regular rate and rhythm , ABDOMEN: Soft , no tenderness EXTREMITIES: No edema feet - Labs CBC & Chem 7: 05/30/23 09:44 05/30/23 09:44 Labs: Abnormal Lab Results - Last 24 Hours (Table) 05/28/23 05/28/23 05/28/23 Range/Units 11:29 16:22 20:22 MCHC (31.0-37.0) g/dL RDW (11.5-15.5) % Chloride (98-107) mmol/L Glucose (74-99) mg/dL POC Glucose (mg/dL) 279 H 287 H 216 H (70-110) mg/dL 05/29/23 05/29/23 05/29/23 Range/Units 06:09 07:38 07:38 MCHC 30.4 L (31.0-37.0) g/dL RDW 16.7 H (11.5-15.5) % Chloride 111 H (98-107) mmol/L Glucose 203 H (74-99) mg/dL POC Glucose (mg/dL) 209 H (70-110) mg/dL Microbiology - Last 24 Hours (Table) 05/23/23 11:31 Blood Culture - Final Blood 05/25/23 14:30 CSF Culture - Preliminary Cerebral Spinal Fluid Assessment and Plan (1) Leukocytosis Current Visit: Yes Status: Acute Code(s): D72.829 - ELEVATED WHITE BLOOD CELL COUNT, UNSPECIFIED SNOMED Code(s): 042332834 (2) Bacteremia Current Visit: Yes Status: Acute Code(s): R78.81 - BACTEREMIA SNOMED Code(s): 3617890 Plan: 1patient with elevated white count in this patient presented to hospital with mental status changes patient did not have any fever does not look toxic. The patient was started on prednisone outpatient setting could be related to this elevated white count patient did have a negative UA chest x-ray was negative for pneumonia abdominal soft on clinical examination no evidence of any cellulitis or joint swelling 2-patient did have a mildly elevated CRP but Percocet and is normal 3-patient did have a positive blood cultures 2 out of 2 that has been finalized as staph epidermidis with repeat blood culture has been negative possible skin contamination as we do not have any source for this positive blood culture , patient vancomycin discontinued and is being monitored closely off antibiotic therapy 4- with persistent mental status changes patient did have LP, results which shows normal glucose protein is mildly elevated however no WBC clinically doubt meningitis or encephalitis 5-patient with episodes of coughing after being fed , swallow evaluation did not show any aspiration chest x-rays mostly pulmonary vascular congestion and repeat pro-calcitonin is normal clinically doubt pneumonia, the patient will be monito red closely off antibiotic therapy Dictation was produced using [employer] dictation software. please excuse any grammatical, word or spelling errors. Time with Patient: Less than 30
--- NOTE | 2023-05-30 16:57 | P.PN ---
Subjective Progress Note Date: 05/30/23 Principal diagnosis: Leukocytosis and a positive blood culture Patient is a 62-year-old female with a past medical history significant diabetes mellitus currently care home resident the patient has been brought into the hospital for evaluation of mental status changes symptom has been going on for a few days and patient also have increased falls which has been attributed to the patient being started on prednisone last month, patient was noticed to have elevated white count on admission which was attributed to possible steroids subsequently blood cultures came back 2 out of 2 with gram- positive cocci in cluster on today's evaluation that is 05/30/2023, patient denies any fever or chills, patient is breathing comfortably on room air and no need for supplemental oxygen, patient is denies any chest pain or shortness of breath occasional cough but no sputum production no nausea no vomiting no abdominal pain no diarrhea Patient did have a white count of 9.1, creatinine is mildly elevated 1.16, pro calcitonin of 0.09 with a repeat reading of 0.07 and 0.08, did have a CRP of 4.3, blood cultures 2 out of 2 with the gram-positive cocci in cluster, blood culture repeated on 05/23/2020 as well as 05/24/2023 has been negative so far, patient did have LP , CSF did shows glucose of 128 protein of 65 and no nucleated cells, patient CSF culture were negative, patient did have a videofluoroscopic swallow and no mention of any aspiration, chest x-ray 05/27/2023 moderate cardiomegaly pulmonary vascular congestion Objective - Vital Signs Vital signs: Vital Signs Temp 97.3 F L 05/30/23 09:28 Pulse 55 L 05/30/23 14:00 Resp 18 05/30/23 14:00 BP 117/71 05/30/23 12:07 Pulse Ox 94 L 05/30/23 12:07 FiO2 Intake & Output 05/29/23 05/30/23 05/30/23 18:59 06:59 18:59 Intake Total 1620 360 Balance 1620 360 Weight 114 kg Intake: Oral 1620 360 Other: Voiding Method Diaper Diaper Diaper Incontinent Incontinent Incontinent # Voids 1 - Exam GENERAL DESCRIPTION: Middle-age female lying in bed in no distress RESPIRATORY SYSTEM: Unlabored breathing , decreased breath sounds at bases HEART: S1 S2 regular rate and rhythm , ABDOMEN: Soft , no tenderness EXTREMITIES: No edema feet - Labs CBC & Chem 7: 05/30/23 09:44 05/30/23 09:44 Labs: Abnormal Lab Results - Last 24 Hours (Table) 05/29/23 05/29/23 05/30/23 Range/Units 16:40 20:38 06:18 RDW (11.5-15.5) % Creatinine (0.52-1.04) mg/dL Glucose (74-99) mg/dL POC Glucose (mg/dL) 208 H 157 H 132 H (70-110) mg/dL 05/30/23 05/30/23 05/30/23 Range/Units 09:44 09:44 11:40 RDW 16.7 H (11.5-15.5) % Creatinine 1.16 H (0.52-1.04) mg/dL Glucose 231 H (74-99) mg/dL POC Glucose (mg/dL) 189 H (70-110) mg/dL Microbiology - Last 24 Hours (Table) 05/24/23 11:30 Blood Culture - Final Blood 05/25/23 14:30 CSF Gram Stain - Preliminary Cerebral Spinal Fluid CSF Culture - Preliminary Assessment and Plan (1) Leukocytosis Current Visit: Yes Status: Acute Code(s): D72.829 - ELEVATED WHITE BLOOD CELL COUNT, UNSPECIFIED SNOMED Code(s): 750938088 (2) Bacteremia Current Visit: Yes Status: Acute Code(s): R78.81 - BACTEREMIA SNOMED Code(s): 9652059 Plan: 1patient with elevated white count in this patient presented to hospital with mental status changes patient did not have any fever does not look toxic. The patient was started on prednisone outpatient setting could be related to this elevated white count patient did have a negative UA chest x-ray was negative for pneumonia abdominal soft on clinical examination no evidence of any cellulitis or joint swelling 2-patient did have a mildly elevated CRP but Percocet and is normal 3-patient did have a positive blood cultures 2 out of 2 that has been finalized as staph epidermidis with repeat blood culture has been negative possible skin contamination as we do not have any source for this positive blood culture , patient vancomycin discontinued and is being monitored closely off antibiotic therapy 4- with persistent mental status changes patient did have LP, results which shows normal glucose protein is mildly elevated however no WBC clinically doubt meningitis or encephalitis 5-patient with episodes of coughing after being fed , swallow evaluation did not show any aspiration chest x-rays mostly pulmonary vascular congestion and repeat pro-calcitonin is normal clinically doubt pneumonia, the patient continued show slow clinical improvement without any antibiotic therapy hence we will monitor the patient closely off antibiotics Dictation was produced using [employer] dictation software. please excuse any grammatical, word or spelling errors. Time with Patient: Less than 30
[2023-05-30 20:11] LABS: Glucose,Whole Blood 218 mg/dL (70-110)
[2023-05-30] MEDS: traZODone HCL 100 MG TAB PO SCH (20:32)
[2023-05-30] MEDS: ATORVASTATIN 10 MG TAB PO SCH (20:33)
[2023-05-31 06:20] LABS: Glucose,Whole Blood 155 mg/dL (70-110)
[2023-05-31] MEDS: INSULIN ASPART (NovoLOG) 100 UNIT/ML VIAL SQ SCH ×6 (06:32→17:03)
[2023-05-31] MEDS: FENOFIBRATE 160 MG TAB PO SCH (06:32)
[2023-05-31] MEDS: INSULIN DETEMIR (LEVEMIR) 100 UNIT/ML SYR SQ SCH ×2 (06:32→21:11)
[2023-05-31] MEDS: IPRATROPIUM-ALBUTEROL 3 ML NEB INHALATION SCH ×4 (08:23→20:22)
[2023-05-31] MEDS: BUDESONIDE 0.5 MG/2 ML NEBU INHALATION SCH ×2 (08:23→20:22)
[2023-05-31] MEDS: HEPARIN SODIUM,PORCINE 5,000 UNIT/ML 1 ML VIAL SQ SCH ×2 (09:04→20:43)
[2023-05-31] MEDS: amLODIPine 2.5 MG TAB PO SCH (09:04)
[2023-05-31] MEDS: METOPROLOL TARTRATE 12.5 MG TAB PO SCH ×3 (09:04→20:43)
[2023-05-31] MEDS: MULTIVITAMINS, THERA 1 EACH TAB PO SCH (09:04)
[2023-05-31] MEDS: FAMOTIDINE 20 MG/2 ML VIAL IV SCH ×2 (09:04→20:43)
[2023-05-31] MEDS: ACETAMINOPHEN TAB 325 MG TAB PO PRN (09:10)
[2023-05-31 10:11] LABS: Potassium 4.1 mmol/L (3.5-5.1)
[2023-05-31 10:12] LABS: African American GFR (CKD) 56 (>60 ml/min/1.73 sqM); Anion Gap 9 mmol/L; Blood Urea Nitrogen 20 mg/dL (7-17); Calcium 8.9 mg/dL (8.4-10.2); Carbon Dioxide 23 mmol/L (22-30); Chloride 103 mmol/L (98-107); Glucose 122 mg/dL (74-99); Non-African American GFR(CKD) 49 (>60 ml/min/1.73 sqM); Sodium 135 mmol/L (137-145)
[2023-05-31 11:27] LABS: Glucose,Whole Blood 104 mg/dL (70-110)
[2023-05-31 14:51] VITALS: BMI 36.0
--- NOTE | 2023-05-31 14:51 | P.PN ---
Subjective Progress Note Date: 05/31/23 78 years old female with multiple medical problems She presents with altered mental status candidate to toxic encephalopathy suspected by neurologist secondary to lithium toxicity, level on admission was 1.8 with a reference range going up to 1.5, release him was held currently, and psychiatry team were consulted. Patient when asked about her name she says a stiphanae (her name is Kat) , but she can tell last name correctly as Caesar, she answers questions appropriately about she fails to follow commands. She denies any specific complaints but this couldn't be affected by her mentation. Also patient has mild leukocytosis which could be explained also by lithium affect. However blood culture came back positive for staph. epi with further sensitivity is still pending. Patient was started on IV vancomycin. Vital signs stable and afebrile. Doppler velocity 13,000 klononpin and lithium are on hold for now. EEG is pending. ammonia is low. CT of the head and neck was unremarkable for acute process. 05/25/2023 Patient awake but she still confused, she can tell she is in hospital in [facility] but she could not tell the name of the hospital she could not tell that time or the name of the president. Patient had no insight into her illness and answer some questions appropriately while other questions she started laughing inappropriately related to her confusion. Patient looks like she has generalized weakness, her weakness is more on the right side but this is limited by patient change in mentation. No other new complaints. Hemodynamically stable. She remains on IV vancomycin for staph epidermidis positive blood culture. neurologist started the patient on Vimpat for EEG showing left frontal discharged with no seizure Eufemia remains on hold for psychiatrist and to start trazodone and Prolixin. keppra is on hold MRI of the brain and lumbar puncture pending 05/26/2023 Patient remains somewhat confused, laughing inappropriately at times. MRI of the brain: No acute stroke or mass EEG: Frequent high amplitude triphasic waves, delta waves and other waves which per note of note epileptiform in nature and they are seen in toxic/metabolic Encephalopathy. Patient was already started on vimpat by neurologist She has positive blood culture with coagulase negative staph, possible contamination. Repeat blood culture are still pending. Patient remains on IV vancomycin Her breathing is improving after stress echo for Lasix and most likely patient has mild COPD exacerbation given her history of smoking. We will change her steroids into prednisone 30 mg daily Patient is status post lumbar puncture yesterday. Results are still pending 05/27 : Patient seen and evaluated bedside. Patient caregivers Bedside as well mentation has improved. Lumbar puncture negative for acute infection. Patient is alert to person and able to have a communication 05/28: Patient seen and evaluated bedside, patient caregivers at bedside as well. Plan was to discharge patient back to facility however patient was more lethargic. After discussion with neurology Vimpat discontinued. Patient has been awake through most of the night hence dose of trazodone will be increased overnight. Encouraged to keep patient awakes with a day. Follow-up on ammonia levels CBC and basic metabolic panel. We'll plan on discontinuing vancomycin after discussion with infectious disease 05/29: Patient seen and evaluated bedside mentation has improved significantly compared by guardian at bedside vision is able to talk alert and oriented 1. Noted to have hyperglycemia with blood glucose address. Started on Lantus. However home insulin unclear. Requested guardian to confirm home insulin dosing. Potential discharge within the next 24 hours. Discussed that clozapine has been discontinued during this hospital stay and at this point patient has been started on Prolixin which will be continued upon discharge with outpatient follow-up with psychiatry 05/30: Patient seen and evaluated bedside, mentation has improved, patient is impulsive trying to get out of the chair at times fall precautions in place. Blood glucose better controlled with Lantus however home insulin regimen still not confirm guardian to bring home med list discussed with nursing staff potential discharge in the next 24 hours 05/31. Patient seen and examined. Family at the bedside, states she is getting better, mentation improving REVIEW OF SYSTEMS: CONSTITUTIONAL: No fever, no malaise,. CARDIOVASCULAR: No chest pain, no palpitations, no syncope. PULMONARY: No shortness of breath, no cough, GASTROINTESTINAL: No diarrhea, no nausea, no vomiting, no abdominal pain. NEUROLOGICAL: No headaches, no weakness, PHYSICAL EXAMINATION: GENERAL: The patient is alert , not in any acute distress. Well developed, well nourished. HEENT: Pupils are round and equally reacting to light. EOMI. No scleral icterus. No conjunctival pallor. Normocephalic, atraumatic. No pharyngeal erythema. No thyromegaly. CARDIOVASCULAR: S1 and S2 present. No murmurs, rubs, or gallops. PULMONARY: Chest is clear to auscultation, no wheezing or crackles. ABDOMEN: Soft, nontender, nondistended, normoactive bowel sounds. No palpable organomegaly. MUSCULOSKELETAL: No joint swelling or deformity. EXTREMITIES: No cyanosis, clubbing, or pedal edema. NEUROLOGICAL: Gross neurological examination did not reveal any focal deficits. SKIN: No rashes. Assessment and plan Acute toxic/metabolic encephalopathy Acute delirium Positive Staph epi in blood culture, most likely contamination COPD exacerbation Schizophrenia Diabetes mellitus on insulin at home Hyperlipidemia Hypertension Plan: * Patient seen IV vancomycin which has been discontinued by infectious disease hospital day 04/30 DC on 05/29 >> infectious disease was following. Follow up on CRP and pro-calcitonin trending down, pro-calcitonin negative * Discontinued lithium per neurologist recommendation >> consulted psychiatrist who added trazodone and Prolixin * Received vimpat per neurologist while inpatient, weaned down by neurology, di scontinued Vimpat on 05/28 * Follow-up lumbar puncture negative for infection * Blood cultures 05/22 staph epidermidis, repeat blood cultures 05/24 no growth * We'll continue with reorientation with plan to discharge to facility once mentation improves * Regards to diabetes mellitus continue patient on Lantus twice a day, Humalog with meals as well as correctional insulin.>> Requested guardian to confirm home insulin dose Labs and medication were reviewed.. Continue same treatment. Continue with symptomatic treatment. Resume home medication. Monitor labs and vitals. DVT and GI prophylaxis. Further recommendations as per clinical course of the patient Dictation was produced using [employer] dictation software. please excuse any grammatical, word or spelling errors. Objective - Vital Signs Vital signs: Vital Signs Temp 97.5 F L 05/31/23 09:02 Pulse 66 05/31/23 09:02 Resp 16 05/31/23 09:02 BP 128/64 05/31/23 09:02 Pulse Ox 94 L 05/31/23 09:02 FiO2 Intake & Output 05/30/23 05/31/23 05/31/23 18:59 06:59 18:59 Intake Total 540 50 Balance 540 50 Intake: Oral 540 50 Other: Voiding Method Diaper Diaper Diaper Incontinent Incontinent Incontinent # Voids 1 3 2 - Labs CBC & Chem 7: 05/30/23 09:44 05/31/23 09:41 Labs: Abnormal Lab Results - Last 24 Hours (Table) 05/30/23 05/30/23 05/30/23 Range/Units 11:40 16:27 20:09 Sodium (137-145) mmol/L BUN (7-17) mg/dL Creatinine (0.52-1.04) mg/dL Glucose (74-99) mg/dL POC Glucose (mg/dL) 189 H 182 H 218 H (70-110) mg/dL 05/31/23 05/31/23 Range/Units 06:17 09:41 Sodium 135 L (137-145) mmol/L BUN 20 H (7-17) mg/dL Creatinine 1.20 H (0.52-1.04) mg/dL Glucose 122 H (74-99) mg/dL POC Glucose (mg/dL) 155 H (70-110) mg/dL Microbiology - Last 24 Hours (Table) 05/25/23 14:30 CSF Gram Stain - Final Cerebral Spinal Fluid CSF Culture - Final
[2023-05-31 15:26] VITALS: RESP 16
[2023-05-31 16:38] LABS: Glucose,Whole Blood 189 mg/dL (70-110)
--- NOTE | 2023-05-31 19:36 | P.PN ---
Subjective Progress Note Date: 05/31/23 Patient was initially seen by Dr. Jorge Alegria. Please refer to his note for details. Patient is a 62-year-old female with altered mental status. Patient had a negative LP, and prolonged EEG was negative for any seizure discharges. Patient does have moderate encephalopathy. Patient is present is sitting comfortably in the recliner. She appears slightly confused. Denies headache. Per nursing report, patient has been moving around well. She is alert and oriented 1. Per caregiver, patient is more better. Please refer to examination below. Telemetry monitoring showing sinus rhythm. Objective - Vital Signs Vital signs: Vital Signs Temp 97.5 F L 05/31/23 09:02 Pulse 64 05/31/23 16:33 Resp 16 05/31/23 15:25 BP 127/58 05/31/23 15:25 Pulse Ox 95 05/31/23 15:25 FiO2 Intake & Output 05/30/23 05/31/23 05/31/23 18:59 06:59 18:59 Intake Total 540 770 Balance 540 770 Weight 114 kg Intake: Oral 540 770 Other: Voiding Method Diaper Diaper Diaper Incontinent Incontinent Incontinent # Voids 1 3 2 - Exam Patient is sitting comfortably in the recliner. She states it is the month of November, and the year is 1962. Then she changed to 1989. She knows that she is in [facility] in [place]. She then started talking tangential, seeing "I had a dream". Then she said something about "president of [place]", Mrs. Murphy. Patient states that it is Chaya Ley the current president. Patient then said out of blue "I saw all the cats". Speech and language functions are normal. Pupils are equal, round and reactive to light, visual gibbs are full, face is symmetric. Muscle strength appears normal, but patient did not cooperate well with examination. She would not follow directions as well. Sensations are equal. No ataxia for [id number] testing. - Labs CBC & Chem 7: 05/30/23 09:44 05/31/23 09:41 Labs: Abnormal Lab Results - Last 24 Hours (Table) 05/30/23 05/31/23 05/31/23 Range/Units 20:09 06:17 09:41 Sodium 135 L (137-145) mmol/L BUN 20 H (7-17) mg/dL Creatinine 1.20 H (0.52-1.04) mg/dL Glucose 122 H (74-99) mg/dL POC Glucose (mg/dL) 218 H 155 H (70-110) mg/dL 05/31/23 Range/Units 16:37 Sodium (137-145) mmol/L BUN (7-17) mg/dL Creatinine (0.52-1.04) mg/dL Glucose (74-99) mg/dL POC Glucose (mg/dL) 189 H (70-110) mg/dL Microbiology - Last 24 Hours (Table) 05/25/23 14:30 CSF Gram Stain - Final Cerebral Spinal Fluid CSF Culture - Final Assessment and Plan Assessment: This is a 62-year-old woman who presented emergency department because of confusion and it's reported that she's been having confusion for the past couple months and she was recently been on prednisone for her asthma and has been restless and weak. Encephalopathy: Possibley toxic metabolic encephalopathy. Medication effect of prednisone for recent asthma as well as the lithium is a considered potentially toxic of level 1.8. CSF study is negative for any underlying the infection U rine drug screen is positive for tricyclic antidepressant. MRI Brain is negative for acute or subacute stroke. Routine EEG was suspicious for epileptiform discharges over left fronto-temporal but prolonged was negative for discharges or seizures--mentation is improving (per civil engineering project designer almost back to baseline) History of schizophrenia Urine drug it's positive for tricyclic antidepressant Plan: TSH 1.02, normal, ammonia is 25 also normal. vitamin B12: 754 and folate level 19.50 CSF study 05/25/2023: It is clear, colorless, red blood cells 1, total nuclear cells 0, glucose is 128 and the protein is 65 (total protein range is 12-60). Viral cultures negative. MR the brain is reported as motion limited exam. No evidence of intracranial mass or acute subacute infarct. Minimal nonspecific white matter changes, likely secondary due to small vessel ischemic disease. Prolonged EEG 90 minutes performed on 05/25/2023: Is abnormal. No seizures were recorded. No epileptiform activity was present. The triphasic waves mentioned above are not epileptiform in nature. Triphasic waves can be seen in the setting of metabolic encephalopathy. They're frontally predominant delta range slowing mentioned above is not epileptiform in nature. The diffuse theta/delta range slowing mentioned above is not epileptiform nature. In combination these findings indicate moderate diffuse cerebral dysfunction as the may be seen in the toxic metabolic encephalopathy. Patient is off Vimpat as of 05/28/2023. Per civil engineering project designer she looks better and a lmost back to baseline. There is no seizure or discharges on the long-term EEG. Infection disease is on board. Avoid steroid if possible. We'll defer the rest of the medical management to the primary team and other specialist. Neurologically clear.
[2023-05-31 20:16] LABS: Glucose,Whole Blood 143 mg/dL (70-110)
[2023-05-31] MEDS: traZODone HCL 100 MG TAB PO SCH (20:43)
[2023-05-31] MEDS: ATORVASTATIN 10 MG TAB PO SCH (20:43)
[2023-06-01 06:10] LABS: Glucose,Whole Blood 155 mg/dL (70-110)
[2023-06-01] MEDS: FENOFIBRATE 160 MG TAB PO SCH (07:26)
[2023-06-01] MEDS: INSULIN ASPART (NovoLOG) 100 UNIT/ML VIAL SQ SCH ×4 (07:26→11:46)
[2023-06-01] MEDS: INSULIN DETEMIR (LEVEMIR) 100 UNIT/ML SYR SQ SCH (07:26)
[2023-06-01 07:44] VITALS: TEMP 98.5
[2023-06-01] MEDS: BUDESONIDE 0.5 MG/2 ML NEBU INHALATION SCH (08:04)
[2023-06-01] MEDS: IPRATROPIUM-ALBUTEROL 3 ML NEB INHALATION SCH ×2 (08:04→11:47)
[2023-06-01] MEDS: FAMOTIDINE 20 MG/2 ML VIAL IV SCH (08:41)
[2023-06-01] MEDS: METOPROLOL TARTRATE 12.5 MG TAB PO SCH (08:41)
[2023-06-01] MEDS: MULTIVITAMINS, THERA 1 EACH TAB PO SCH (08:41)
[2023-06-01] MEDS: HEPARIN SODIUM,PORCINE 5,000 UNIT/ML 1 ML VIAL SQ SCH (08:41)
[2023-06-01] MEDS: amLODIPine 2.5 MG TAB PO SCH (08:41)
[2023-06-01 11:41] VITALS: BP 134/67; PULSE 60
[2023-06-01 11:47] LABS: Glucose,Whole Blood 110 mg/dL (70-110)
--- NOTE | 2023-06-01 13:25 | P.DS ---
Providers Date of admission: 05/22/23 20:41 Expected date of discharge: 06/01/23 Attending physician: Aydee King Consults: 05/22/23 20:41 Consult Physician Routine Consulting Provider: Mahogany Alicea Consult Reason/Comments: AMS Do you want consulting provider notified?: Yes 05/23/23 11:27 Consult Physician Routine Consulting Provider: Clyde Mercado Consult Reason/Comments: Tremors/jerking, confusion Do you want consulting provider notified?: Yes Consult Physician Routine Consulting Provider: Hernando Pike Consult Reason/Comments: Elevated WBC count Do you want consulting provider notified?: Yes 05/23/23 13:12 Consult Physician Routine Consulting Provider: Rico Lopes Consult Reason/Comments: schizo Do you want consulting provider notified?: Yes Primary care physician: Raphael Cleary Hospital Course: Discharge diagnoses; Acute toxic/metabolic encephalopathy Acute delirium Positive Staph epi in blood culture, most likely contamination COPD exacerbation Schizophrenia Diabetes mellitus on insulin at home Hyperlipidemia Hypertension Hospital course; 78 years old female with multiple medical problems She presents with altered mental status candidate to toxic encephalopathy suspected by neurologist secondary to lithium toxicity, level on admission was 1.8 with a reference range going up to 1.5, release him was held currently, and psychiatry team were consulted. Patient when asked about her name she says a stipgabeae (her name is Kat) , but she can tell last name correctly as Casear, she answers questions appropriately about she fails to follow commands. She denies any specific complaints but this couldn't be affected by her mentation. Also patient has mild leukocytosis which could be explained also by lithium affect. However blood culture came back positive for staph. epi with further sensitivity is still pending. Patient was started on IV vancomycin. Vital signs stable and afebrile. Doppler velocity 13,000 klononpin and lithium are on hold for now. EEG is pending. ammonia is low. CT of the head and neck was unremarkable for acute process. 05/25/2023 Patient awake but she still confused, she can tell she is in hospital in [place] but she could not tell the name of the hospital she could not tell that time or the name of the president. Patient had no insight into her illness and answer some questions appropriately while other questions she started laughing inappropriately related to her confusion. Patient looks like she has generalized weakness, her weakness is more on the right side but this is limited by patient change in mentation. No other new complaints. Hemodynamically stable. She remains on IV vancomycin for staph epidermidis positive blood culture. neurologist started the patient on Vimpat for EEG showing left frontal discharged with no seizure Eufemia remains on hold for psychiatrist and to start trazodone and Prolixin. luzmaarielle is on hold MRI of the brain and lumbar puncture pending 05/26/2023 Patient remains somewhat confused, laughing inappropriately at times. MRI of the brain: No acute stroke or mass EEG: Frequent high amplitude triphasic waves, delta waves and other waves which per note of note epileptiform in nature and they are seen in toxic/metabolic Encephalopathy. Patient was already started on vimpat by neurologist She has positive blood culture with coagulase negative staph, possible contamination. Repeat blood culture are still pending. Patient remains on IV vancomycin Her breathing is improving after stress echo for Lasix and most likely patient has mild COPD exacerbation given her history of smoking. We will change her steroids into prednisone 30 mg daily Patient is status post lumbar puncture yesterday. Results are still pending 05/27 : Patient seen and evaluated bedside. Patient caregivers Bedside as well mentation has improved. Lumbar puncture negative for acute infection. Patient is alert to person and able to have a communication 05/28: Patient seen and evaluated bedside, patient caregivers at bedside as well. Plan was to discharge patient back to facility however patient was more lethargic. After discussion with neurology Vimpat discontinued. Patient has been awake through most of the night hence dose of trazodone will be increased overnight. Encouraged to keep patient awakes with a day. Follow-up on ammonia levels CBC and basic metabolic panel. We'll plan on discontinuing vancomycin after discussion with infectious disease 05/29: Patient seen and evaluated bedside mentation has improved significantly compared by guardian at bedside vision is able to talk alert and oriented 1. Noted to have hyperglycemia with blood glucose address. Started on Lantus. However home insulin unclear. Requested guardian to confirm home insulin dosing . Potential discharge within the next 24 hours. Discussed that clozapine has been discontinued during this hospital stay and at this point patient has been started on Prolixin which will be continued upon discharge with outpatient follow-up with psychiatry 05/30: Patient seen and evaluated bedside, mentation has improved, patient is impulsive trying to get out of the chair at times fall precautions in place. Blood glucose better controlled with Lantus however home insulin regimen still not confirm guardian to bring home med list discussed with nursing staff potential discharge in the next 24 hours 05/31. Patient seen and examined. Family at the bedside, states she is getting better, mentation improving 06/01. Patient seen and examined. Guardian at the bedside, states that patient mental status back to baseline. Being discharged back to [facility] PHYSICAL EXAMINATION: GENERAL: The patient is alert and oriented x2-3, not in any acute distress. Well developed, well nourished. HEENT: Pupils are round and equally reacting to light. EOMI. No scleral icterus. No conjunctival pallor. Normocephalic, atraumatic. No pharyngeal erythema. No thyromegaly. CARDIOVASCULAR: S1 and S2 present. No murmurs, rubs, or gallops. PULMONARY: Chest is clear to auscultation, no wheezing or crackles. ABDOMEN: Soft, nontender, nondistended, normoactive bowel sounds. No palpable organomegaly. MUSCULOSKELETAL: No joint swelling or deformity. EXTREMITIES: No cyanosis, clubbing, or pedal edema. NEUROLOGICAL: Gross neurological examination did not reveal any focal deficits. SKIN: No rashes. Dictation was produced using [employer] dictation software. please excuse any grammatical, word or spelling errors. Patient Condition at Discharge: Serious Plan - Discharge Summary Discharge Rx Participant: Yes New Discharge Prescriptions: New traZODone HCL [Desyrel] 100 mg PO HS #15 tab Insulin Detemir (Levemir) [Levemir] 20 unit SQ BID #1 each fluPHENAZine [Prolixin] 2 mg PO BID #30 tab fluPHENAZine [Prolixin] 5 mg PO BID #30 tab Continue Multivitamins, Thera [Multivitamin (formulary)] 1 tab PO DAILY Fenofibrate,Micronized [Fenofibrate] 134 mg PO DAILY@0600 Montelukast Sodium 10 mg PO HS Metoprolol Tartrate [Lopressor] 12.5 mg PO TID@0600,1200,2100 Ipratropium-Albuterol Nebulize [Duoneb 0.5 mg-3 mg/3 ml Soln] 3 ml INHALATION RT-Q6H Cholecalciferol [Vitamin D3 (25 Mcg = 1000 Iu)] 50 mcg PO DAILY bisacodyL [Dulcolax] 10 mg RECTAL DAILY PRN PRN Reason: Constipation Budesonide [Pulmicort] 0.5 mg INHALATION RT-BID Atorvastatin [Lipitor] 10 mg PO HS amLODIPine [Norvasc] 7.5 mg PO DAILY metFORMIN HCL 500 mg PO QAM Insulin Lispro [humaLOG Kwikpen] See Protocol SQ QID Famotidine [Pepcid] 20 mg PO BID Cinacalcet HCl 30 mg PO DAILY Acetaminophen [Tylenol] 650 mg PO Q6H PRN PRN Reason: Fever And/ Or Pain metFORMIN HCL 1,000 mg PO PC-SUPPER Discontinued Gabapentin [Neurontin] 300 mg PO BID cloZAPine [Clozaril] 300 tab PO HS@2100 cloZAPine [Clozaril] 100 mg PO DAILY@1400 cloZAPine [Clozaril] 50 mg PO BID@1400,2100 [place] Carbonate [Lithobid] 900 mg PO DAILY Discharge Medication List Fenofibrate,Micronized [Fenofibrate] 134 mg PO DAILY@0600 07/08/17 [History] Multivitamins, Thera [Multivitamin (formulary)] 1 tab PO DAILY 07/08/17 [History] Acetaminophen [Tylenol] 650 mg PO Q6H PRN 05/15/23 [History] Atorvastatin [Lipitor] 10 mg PO HS 05/15/23 [History] Budesonide [Pulmicort] 0.5 mg INHALATION RT-BID 05/15/23 [History] Cholecalciferol [Vitamin D3 (25 Mcg = 1000 Iu)] 50 mcg PO DAILY 05/15/23 [History] Cinacalcet HCl 30 mg PO DAILY 05/15/23 [History] Famotidine [Pepcid] 20 mg PO BID 05/15/23 [History] Insulin Lispro [humaLOG Kwikpen] See Protocol SQ QID 05/15/23 [History] Ipratropium-Albuterol Nebulize [Duoneb 0.5 mg-3 mg/3 ml Soln] 3 ml INHALATION RT-Q6H 05/15/23 [History] Metoprolol Tartrate [Lopressor] 12.5 mg PO TID@0600,1200,2100 05/15/23 [History] Montelukast Sodium 10 mg PO HS 05/15/23 [History] amLODIPine [Norvasc] 7.5 mg PO DAILY 05/15/23 [History] bisacodyL [Dulcolax] 10 mg RECTAL DAILY PRN 05/15/23 [History] metFORMIN HCL 1,000 mg PO PC-SUPPER 05/30/23 [History] metFORMIN HCL 500 mg PO QAM 05/30/23 [History] Insulin Detemir (Levemir) [Levemir] 20 unit SQ BID #1 each 06/01/23 [Rx] fluPHENAZine [Prolixin] 2 mg PO BID #30 tab 06/01/23 [Rx] fluPHENAZine [Prolixin] 5 mg PO BID #30 tab 06/01/23 [Rx] traZODone HCL [Desyrel] 100 mg PO HS #15 tab 06/01/23 [Rx] Follow up Appointment(s)/Referral(s): Raphael Cleary MD [Primary Care Provider] - 1-2 days Discharge/Stand Alone Forms: Anes Pain/[place] Instructions Discharge Disposition: TRANSFER TO SNF/ECF
[2023-06-01] MEDS: ACETAMINOPHEN TAB 325 MG TAB PO PRN (14:02)
== END 2023-06-01 16:34 | DRG 917 ==
LOC: EC 16:33 → 4SSUR 20:41 → 3SCARD 21:41
PROVIDERS: ADMIT Hospitalist; ATTEND Hospitalist
PROC: 009U3ZX Drainage of Spinal Canal, Percutaneous Approach, Diagnostic (ICD-10-PCS; principal; 2023-05-25 11:45)
DX: T43.591A Poisoning by other antipsychotics and neuroleptics, accidental (unintentional), initial encounter (principal); G92.8 Other toxic encephalopathy; F05 Delirium due to known physiological condition; R78.81 Bacteremia; J44.1 Chronic obstructive pulmonary disease with (acute) exacerbation; F25.1 Schizoaffective disorder, depressive type; I11.9 Hypertensive heart disease without heart failure; E78.5 Hyperlipidemia, unspecified; T38.0X5A Adverse effect of glucocorticoids and synthetic analogues, initial encounter; Z20.822 Contact with and (suspected) exposure to COVID-19; Z79.4 Long term (current) use of insulin; Z87.01 Personal history of pneumonia (recurrent); Z87.891 Personal history of nicotine dependence; Z79.891 Long term (current) use of opiate analgesic; Z79.899 Other long term (current) drug therapy
CPT/HCPCS: 36415; 62270; 70450; 70551; 71045; 72125; 72170; 74230; 80048; 80053; 80076; 80171; 80178; 80202; 80306; 80320; 81003; 82140; 82565; 82607; 82746; 82803; 82945; 83036; 83873; 83880; 84145; 84157; 84443; 84484; 85025; 85027; 85610; 85730; 86140; 86592; 87040; 87070; 87077; 87186; 87205; 87252; 87529; 87636; 88108; 89050; 93005; 94640; 94760; 95813; 95816; 96361; 96374; 99285

== ENCOUNTER 2024-10-12 12:53 | Inpatient (IN) | payer MEDICARE, OTHER ==
--- NOTE | 2024-10-12 14:02 | ED ---
Arrhythmia/Palpitations HPI - General Chief Complaint: Arrhythmia/Palpitations Stated Complaint: AFIB Time Seen by Provider: 10/12/24 13:10 Source: patient Mode of arrival: ambulatory Limitations: no limitations - History of Present Illness Initial Comments: 64-year-old female with history of paranoid schizophrenia, asthma who presents to the emergency department with shortness of breath and lightheadedness. Patient has had the symptoms for the past week. This developed after a bout of diarrhea. She was taken off of her lasix and metformin. She went into her primary care office today. EKG was completed which demonstrated new onset of A- fib and was sent to the hospital for evaluation. She does not take a blood thinner. No history of A-fib. 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 Patient denies any chest pain. No fevers chills or cough. No other alleviating, precipitating or modifying factors - Related Data Home Medications Medication Instructions Recorded Confirmed Atorvastatin [Lipitor] 10 mg PO DAILY 10/12/24 10/12/24 Cholecalciferol (Vitamin D3) 50 mcg PO DAILY 10/12/24 10/12/24 [Vitamin D3 (50 Mcg = 2000 Iu)] Cinacalcet [Sensipar] 30 mg PO DIRECTED 10/12/24 10/12/24 Divalproex ER [Depakote ER] 500 mg PO BID 10/12/24 10/12/24 Famotidine [Pepcid] 20 mg PO BID 10/12/24 10/12/24 Fenofibrate,Micronized 134 mg PO DAILY 10/12/24 10/12/24 [Fenofibrate] Fluticasone/Umeclidin/Vilanter 1 puff INHALATION RT-DAILY 10/12/24 10/12/24 [Trelegy Ellipta 100-62.5-25] Insulin Aspart (Niacinamide) See Protocol SQ AC-TID 10/12/24 10/12/24 [Fiasp 100 Unit/ml Vial] Insulin Glargine,Hum.rec.anlog 50 unit SQ BID 10/12/24 10/12/24 [Basaglangela Haganpen U-100] Ipratropium-Albuterol Nebulize 3 ml INHALATION RT-Q6H PRN 10/12/24 10/12/24 [Duoneb 0.5 mg-3 mg/3 ml Soln] Montelukast [Singulair] 10 mg PO HS 10/12/24 10/12/24 Tirzepatide [Mounjaro] 7.5 mg SQ Q7D 10/12/24 10/12/24 cloZAPine [Clozaril] 50 mg PO DAILY 10/12/24 10/12/24 cloZAPine [Clozaril] 100 mg PO TID 10/12/24 10/12/24 metFORMIN HCL [Glucophage] 1,000 mg PO W/SUPPER 10/12/24 10/12/24 metFORMIN HCL [Glucophage] 500 mg PO W/BRKFST 10/12/24 10/12/24 traZODone HCL [Desyrel] 100 mg PO HS 10/12/24 10/12/24 Previous Rx's Medication Instructions Recorded Apixaban [Eliquis] 5 mg PO BID #60 tab 10/14/24 Dapagliflozin Propanediol [Farxiga] 10 mg PO DAILY #30 tab 10/14/24 Ferrous Sulfate [Feosol] 325 mg PO DAILY #30 tab 10/14/24 Metoprolol Tartrate [Lopressor] 25 mg PO TID #90 tab 10/14/24 Allergies Allergy/AdvReac Type Severity Reaction Status Date / Time No Known Allergies Allergy Verified 10/12/24 17:03 Review of Systems ROS Statement: Those systems with pertinent positive or pertinent negative responses have been documented in the HPI. ROS Other: All systems not noted in ROS Statement are negative. Past Medical History Past Medical History: Asthma, Diabetes Mellitus, Pneumonia Additional Past Medical History / Comment(s): Respiratory failure May 01 2023, paranoid schizophrenia History of Any Multi-Drug Resistant Organisms: None Reported Past Surgical History: No Surgical Hx Reported Additional Past Surgical History / Comment(s): no previous surgeries Past Anesthesia/Blood Transfusion Reactions: No Reported Reaction Past Psychological History: Schizophrenia Smoking Status: Former smoker Past Alcohol Use History: None Reported Past Drug Use History: None Reported - Past Family History Mother History Unknown: Yes Family Medical History: No Reported History Father History Unknown: Yes General Exam Limitations: no limitations General appearance: alert, in no apparent distress Head exam: Present: atraumatic, normocephalic, normal inspection Eye exam: Present: normal appearance, PERRL, EOMI. Absent: scleral icterus, conjunctival injection, periorbital swelling ENT exam: Present: normal exam, mucous membranes moist Neck exam: Present: normal inspection. Absent: tenderness, meningismus, lymphadenopathy Respiratory exam: Present: normal lung sounds bilaterally. Absent: respiratory distress, wheezes, rales, rhonchi, stridor Cardiovascular Exam: Present: tachycardia, irregular rhythm, normal heart sounds. Absent: systolic murmur, diastolic murmur, rubs, gallop, clicks GI/Abdominal exam: Present: soft, normal bowel sounds. Absent: distended, tenderness, guarding, rebound, rigid Extremities exam: Present: normal inspection, full ROM, normal capillary refill. Absent: tenderness, pedal edema, joint swelling, calf tenderness Back exam: Present: normal inspection Neurological exam: Present: alert, oriented X3, CN II-XII intact Psychiatric exam: Present: normal affect, normal mood Skin exam: Present: warm, dry, intact, normal color. Absent: rash Course Vital Signs 10/12/24 10/12/24 10/12/24 12:58 13:26 13:29 Temperature 98 F 98.7 F Pulse Rate 116 H 122 H Pulse Rate [ 122 H Left Radial] Respiratory 18 16 Rate Blood Pressure 129/78 114/77 Blood Pressure [Right Arm] O2 Sat by Pulse 96 97 Oximetry 10/12/24 10/12/24 10/12/24 15:09 18:32 18:51 Temperature 98.2 F Pulse Rate 114 H 118 H 129 H Pulse Rate [ Left Radial] Respiratory 18 22 22 Rate Blood Pressure 100/75 129/86 121/64 Blood Pressure [Right Arm] O2 Sat by Pulse 95 94 L 96 Oximetry 10/12/24 19:55 Temperature 97.5 F L Pulse Rate Pulse Rate [ 98 Left Radial] Respiratory 16 Rate Blood Pressure Blood Pressure 135/60 [Right Arm] O2 Sat by Pulse 96 Oximetry Medical Decision Making - Medical Decision Making Was pt. sent in by a medical professional or institution (STACI Sesay, COMPANY MANAGER, urgent care, hospital, or intermediate...) When possible be specific @ -Patient was sent in from primary care office Did you speak to anyone other than the patient for history (EMS, parent, family, police, friend...)? What history was obtained from this source @ -Spoke with patient's guardian for history Did you review nursing and triage notes (agree or disagree)? Why? @ -I reviewed and agree with nursing and triage notes Were old charts reviewed (outside hosp., previous admission, EMS record, old EKG, old radiological studies, urgent care reports/EKG's, intermediate records)? Report findings @ -No old charts were reviewed Differential Diagnosis (chest pain, altered mental status, abdominal pain women, abdominal pain men, vaginal bleeding, weakness, fever, dyspnea, syncope, headache, dizziness, GI bleed, back pain, seizure, CVA, palpatations, mental health, musculoskeletal)? @ -Differential Palpitations Ventricular arrhythmias, atrial arrhythmias, myocardial infarction, anemia, thyrotoxicosis, electrolyte imbalance, hypokalemia, pulmonary embolism, pulmonary disease, drugs, alcohol, anxiety, stress.... This is not meant to be an all-inclusive list. EKG interpreted by me (3pts min.). @ -Yes and demonstrates A-fib with a rate of 118. QRS 122. QTc of 400. No acute ST segment elevations or depressions X-rays interpreted by me (1pt min.). @ -Yes which demonstrates venous congestion CT interpreted by me (1pt min.). @ -None done U/S interpreted by me (1pt. min.). @ -None done What testing was considered but not performed or refused? (CT, X-rays, U/S, labs)? Why? @ -None What meds were considered but not given or refused? Why? @ -None Did you discuss the management of the patient with other professionals (professionals i.e. , PA, COMPANY MANAGER, lab, RT, psych nurse, social security assessor, coal trimmer, teacher, public relations officer, lining caser)? Give summary @ -Spoke with Dr. Marie for admission Was smoking cessation discussed for >3mins.? @ -No Was critical care preformed (if so, how long)? @ -Yes, 35 minutes for management of rapid A-fib Were there social determinants of health that impacted care today? How? (Homelessness, low income, unemployed, alcoholism, drug addiction, transportation, low edu. Level, literacy, decrease access to med. care, [place] [facility], rehab)? @ -No Was there de-escalation of care discussed even if they declined (Discuss DNR or withdrawal of care, Hospice)? DNR status @ -No What co-morbidities impacted this encounter? (DM, HTN, Smoking, COPD, CAD, Cancer, CVA, ARF, Chemo, Hep., AIDS, mental health diagnosis, sleep apnea, morbid obesity)? @ -Paranoid schizophrenia Was patient admitted / discharged? Hospital course, mention meds given and route, prescriptions, significant lab abnormalities, going to OR and other pertinent info. @ -Upon arrival patient seen and evaluated in bed 24. Thorough history and physical exam was performed. Patient in new onset A-fib with rapid rate. IV was established. Laboratory studies are conducted. Chest x-ray was performed. Patient is started on Cardizem and heparin. She will be admitted for cardiology consultation. Spoke with Dr. Marie for admission Undiagnosed new problem with uncertain prognosis? @ -No Drug Therapy requiring intensive monitoring for toxicity (Heparin, Nitro, Insulin, Cardizem)? @ -Heparin, Cardizem Were any procedures done? @ -No Diagnosis/symptom? @ -Acute dyspnea, new onset A-fib with RVR Acute, or Chronic, or Acute on Chronic? @ -Acute Uncomplicated (without systemic symptoms) or Complicated (systemic symptoms)? @ -Complicated Side effects of treatment? @ -No Exacerbation, Progression, or Severe Exacerbation? @ -No Poses a threat to life or bodily function? How? (Chest pain, USA, CT, pneumonia, PE, COPD, DKA, ARF, appy, cholecystitis, CVA, Diverticulitis, Homicidal, Suicidal, threat to staff... and all critical care pts) @ -Yes as patient has rapid heart rate - Lab Data Result diagrams: 10/14/24 07:19 10/14/24 07:19 Lab Results 10/12/24 10/12/24 10/12/24 Range/Units 14:02 14:02 14:02 WBC 10.5 (3.8-10.6) k/uL RBC 3.61 L (3.80-5.40) m/uL Hgb 10.6 L (11.4-16.0) gm/dL Hct 32.5 L (34.0-46.0) % MCV 90.0 (80.0-100.0) fL MCH 29.5 (25.0-35.0) pg MCHC 32.8 (31.0-37.0) g/dL RDW 15.4 (11.5-15.5) % Plt Count 236 (150-450) k/uL MPV 8.9 Neutrophils % 65 % Lymphocytes % 21 % Monocytes % 6 % Eosinophils % 6 % Basophils % 0 % Neutrophils # 6.9 (1.3-7.7) k/uL Lymphocytes # 2.2 (1.0-4.8) k/uL Monocytes # 0.6 (0-1.0) k/uL Eosinophils # 0.6 (0-0.7) k/uL Basophils # 0.1 (0-0.2) k/uL PT 12.1 (10.0-12.5) sec INR 1.1 (<1.2) APTT 26.5 (22.0-30.0) sec D-Dimer 0.18 (<0.60) mg/L FEU Sodium 135 L (137-145) mmol/L Potassium 4.0 (3.5-5.1) mmol/L Chloride 103 (98-107) mmol/L Carbon Dioxide 24 (22-30) mmol/L Anion Gap 8 mmol/L BUN 28 H (7-17) mg/dL Creatinine 1.25 H (0.52-1.04) mg/dL Est GFR (CKD-EPI)AfAm 53 (>60 ml/min/1.73 sqM) Est GFR (CKD-EPI)NonAf 46 (>60 ml/min/1.73 sqM) Glucose 166 H (74-99) mg/dL Calcium 8.8 (8.4-10.2) mg/dL Magnesium 1.5 L (1.6-2.3) mg/dL Total Bilirubin 0.3 (0.2-1.3) mg/dL AST 16 (14-36) U/L ALT 16 (4-34) U/L Alkaline Phosphatase 64 (38-126) U/L Troponin I (0.000-0.034) ng/mL NT-Pro-B Natriuret Pep pg/mL Total Protein 5.9 L (6.3-8.2) g/dL Albumin 3.7 (3.5-5.0) g/dL TSH 1.000 (0.465-4.680) mIU/L 12/19/24 12/19/24 Range/Units 14:02 15:10 WBC (3.8-10.6) k/uL RBC (3.80-5.40) m/uL Hgb (11.4-16.0) gm/dL Hct (34.0-46.0) % MCV (80.0-100.0) fL MCH (25.0-35.0) pg MCHC (31.0-37.0) g/dL RDW (11.5-15.5) % Plt Count (150-450) k/uL MPV Neutrophils % % Lymphocytes % % Monocytes % % Eosinophils % % Basophils % % Neutrophils # (1.3-7.7) k/uL Lymphocytes # (1.0-4.8) k/uL Monocytes # (0-1.0) k/uL Eosinophils # (0-0.7) k/uL Basophils # (0-0.2) k/uL PT (10.0-12.5) sec INR (<1.2) APTT (22.0-30.0) sec D-Dimer (<0.60) mg/L FEU Sodium (137-145) mmol/L Potassium (3.5-5.1) mmol/L Chloride (98-107) mmol/L Carbon Dioxide (22-30) mmol/L Anion Gap mmol/L BUN (7-17) mg/dL Creatinine (0.52-1.04) mg/dL Est GFR (CKD-EPI)AfAm (>60 ml/min/1.73 sqM) Est GFR (CKD-EPI)NonAf (>60 ml/min/1.73 sqM) Glucose (74-99) mg/dL Calcium (8.4-10.2) mg/dL Magnesium (1.6-2.3) mg/dL Total Bilirubin (0.2-1.3) mg/dL AST (14-36) U/L ALT (4-34) U/L Alkaline Phosphatase (38-126) U/L Troponin I 0.026 (0.000-0.034) ng/mL NT-Pro-B Natriuret Pep 4760 pg/mL Total Protein (6.3-8.2) g/dL Albumin (3.5-5.0) g/dL TSH (0.465-4.680) mIU/L Disposition Clinical Impression: New onset a-fib, Acute respiratory insufficiency, Hypomagnesemia Disposition: ADMITTED IP TO THIS HOSP Condition: Stable Is patient prescribed a controlled substance at d/c from ED?: No Time of Disposition: 15:43 Decision to Admit Reason: Admit from EC Decision Date: 10/12/24 Decision Time: 15:43
[2024-10-12 14:19] LABS: Basophils # (A) 0.1 k/uL (0-0.2); Basophils % (A) 0 %; Eosinophils # (A) 0.6 k/uL (0-0.7); Eosinophils % (A) 6 %; HCT 32.5 % (34.0-46.0); HGB 10.6 gm/dL (11.4-16.0); Lymphocytes # (A) 2.2 k/uL (1.0-4.8); Lymphocytes % (A) 21 %; MCH 29.5 pg (25.0-35.0); MCHC 32.8 g/dL (31.0-37.0); Mean Platelet Volume 8.9; Monocytes # (A) 0.6 k/uL (0-1.0); Monocytes % (A) 6 %; Neutrophils # (A) 6.9 k/uL (1.3-7.7); Neutrophils % (A) 65 %; Platelet Count 236 k/uL (150-450); RBC 3.61 m/uL (3.80-5.40); RDW 15.4 % (11.5-15.5); WBC 10.5 k/uL (3.8-10.6)
[2024-10-12 14:30] LABS: ALT 16 U/L (4-34); AST 16 U/L (14-36); African American GFR (CKD) 53 (>60 ml/min/1.73 sqM); Albumin 3.7 g/dL (3.5-5.0); Alkaline Phosphatase 64 U/L (38-126); Anion Gap 8 mmol/L; Blood Urea Nitrogen 28 mg/dL (7-17); Calcium 8.8 mg/dL (8.4-10.2); Carbon Dioxide 24 mmol/L (22-30); Chloride 103 mmol/L (98-107); Glucose 166 mg/dL (74-99); Magnesium 1.5 mg/dL (1.6-2.3); Non-African American GFR(CKD) 46 (>60 ml/min/1.73 sqM); Sodium 135 mmol/L (137-145); Total Bilirubin 0.3 mg/dL (0.2-1.3); Total Protein 5.9 g/dL (6.3-8.2)
[2024-10-12 14:35] LABS: INR 1.1 (<1.2); Partial Thromboplastin Time 26.5 sec (22.0-30.0); Prothrombin Time 12.1 sec (10.0-12.5)
--- NOTE | 2024-10-12 14:52 | XR ---
EXAMINATION TYPE: XR chest 2V DATE OF EXAM: 10/12/2024 2:36 PM COMPARISON: 05/29/2023 CLINICAL INDICATION: Female, 64 years old with history of dysrhythmia, TECHNIQUE: Frontal and lateral views of the chest are obtained. FINDINGS: There is no focal air space opacity, pleural effusion, or pneumothorax seen. There is card iomegaly with pulmonary venous congestion and small effusions. The osseous structures are intact. IMPRESSION: Under venous congestion with small effusions. [facility], , 10/12/2024 2:50 PM
[2024-10-12] MEDS: MAGNESIUM SULFATE-D5W PMX 1 GM in DEXTROSE/WATER 1 100ML.BAG IVPB SCH (15:25)
[2024-10-12] MEDS ORDERED: NALOXONE 0.4 MG/ML 1 ML VIAL IV PRN (15:43)
[2024-10-12] MEDS: DILTIAZEM DRIP BOLUS FROM BAG 1 MG SOLN IV ONE (18:46)
[2024-10-12] MEDS: HEPARIN SODIUM 1,000 UN/ML (10ML VL) IV ONE (18:48)
[2024-10-12] MEDS: DILTIAZEM 125 MG in SODIUM CHLORIDE 0.9% 100 ML IV SCH (18:48)
[2024-10-12] MEDS: HEPARIN SOD,PORK IN 0.45% NACL 25,000 UNIT in 0.45% NACL 1 250ML.BAG IV SCH (18:49)
[2024-10-12] MEDS: cloZAPine 100 MG TAB PO SCH (18:55)
[2024-10-12 20:39] LABS: Glucose,Whole Blood 153 mg/dL (70-110)
[2024-10-12] MEDS: MONTELUKAST 10 MG TAB PO SCH (21:36)
[2024-10-12] MEDS: DIVALPROEX ER 500 MG TAB.ER.24H PO SCH (21:36)
[2024-10-12] MEDS: FAMOTIDINE 20 MG TAB PO SCH (21:36)
[2024-10-12] MEDS: traZODone HCL 100 MG TAB PO SCH (21:36)
[2024-10-12] MEDS: INSULIN DETEMIR (LEVEMIR) 100 UNIT/ML SYR SQ SCH (22:04)
[2024-10-13] MEDS: HEPARIN SODIUM 1,000 UN/ML (10ML VL) IV PRN (01:23)
[2024-10-13 06:24] LABS: Glucose,Whole Blood 179 mg/dL (70-110)
[2024-10-13 08:10] LABS: Basophils % (A) 0 %; Eosinophils # (A) 0.6 k/uL (0-0.7); Eosinophils % (A) 8 %; HCT 34.3 % (34.0-46.0); HGB 10.6 gm/dL (11.4-16.0); Hypochromasia Slight; Lymphocytes # (A) 1.5 k/uL (1.0-4.8); Lymphocytes % (A) 19 %; MCV 93.6 fL (80.0-100.0); Mean Platelet Volume 8.1; Monocytes # (A) 0.5 k/uL (0-1.0); Monocytes % (A) 6 %; Neutrophils # (A) 4.9 k/uL (1.3-7.7); Neutrophils % (A) 65 %; Platelet Count 218 k/uL (150-450); RBC 3.66 m/uL (3.80-5.40); WBC 7.6 k/uL (3.8-10.6)
[2024-10-13 08:16] LABS: INR 1.1 (<1.2); Partial Thromboplastin Time 28.2 sec (22.0-30.0)
[2024-10-13 08:22] LABS: African American GFR (CKD) 61 (>60 ml/min/1.73 sqM); Anion Gap 6 mmol/L; Blood Urea Nitrogen 24 mg/dL (7-17); Calcium 8.4 mg/dL (8.4-10.2); Carbon Dioxide 25 mmol/L (22-30); Chloride 107 mmol/L (98-107); Glucose 208 mg/dL (74-99); Non-African American GFR(CKD) 53 (>60 ml/min/1.73 sqM); Potassium 4.3 mmol/L (3.5-5.1); Sodium 138 mmol/L (137-145)
[2024-10-13] MEDS: SYMBICORT 80-4.5 MCG INHALER INHALATION SCH (08:26)
[2024-10-13] MEDS: IPRATROPIUM 0.5 MG/2.5 ML NEBU INHALATION SCH (08:26)
[2024-10-13] MEDS: IPRATROPIUM-ALBUTEROL 3 ML NEB INHALATION PRN (08:26)
[2024-10-13] MEDS ORDERED: BENZOCAINE SPRAY 1 CAN TOPICAL PRN (08:31)
[2024-10-13] MEDS ORDERED: MIDAZOLAM 2 MG/2 ML VIAL IV PRN (08:31)
[2024-10-13] MEDS ORDERED: fentaNYL (PF) 50 MCG/ML 2 ML AMP IVP PRN (08:31)
[2024-10-13] MEDS: FENOFIBRATE 160 MG TAB PO SCH (09:27)
[2024-10-13] MEDS: cloZAPine 25 MG TAB PO SCH (09:28)
[2024-10-13] MEDS: ATORVASTATIN 10 MG TAB PO SCH (09:29)
--- NOTE | 2024-10-13 11:10 | P.CRDCN ---
History of Present Illness Consult date: 10/13/24 Reason for Consult (text): New onset of A-fib with RVR History of present illness: This is a 64-year-old female patient of Dr. SAFIA Riley with past medical history of diabetes, COPD, bronchial asthma, aortic stenosis with a subaortic membrane, schizophrenia, morbid obesity, remote history of tobacco use. We have been asked to evaluate the patient for A-fib with RVR. Patient does have a public guardian. Patient states that she came into the hospital because she had dizziness and she was not breathing right. She denies any chest pain. She denies any dizziness at this time. She has no previous history of atrial fibrillation. She has never had any surgery or stenting done on her heart. Patient was found to be in A-fib with RVR and started on Cardizem bolus followed by drip at 5 mg/h and also started on a heparin drip. Patient remains in atrial fibrillation running about 120 bpm. Blood pressure 140/60, pulse ox 95% on room air. Patient follows at [facility] every [address] Leonardo. Patient was stable on her last visit in February 2023 at which time they deemed her not an appropriate candidate for surgical intervention due to her severe underlying mental health issues. -EKG: Atrial fibrillation at 118 bpm -Chest x-ray: Venous congestion with small effusions -Laboratory studies: WBC 7.6, hemoglobin 10.6, sodium 138, potassium 4.3, BUN 24 and creatinine 1.11. Troponin 0.026, proBNP 4760. TSH 1.0. -Home cardiac medications: Atorvastatin 10 mg daily, fenofibrate 134 mg daily, Lasix 40 mg daily, Lopressor 12.5 mg twice daily. Patient is also on Mounjaro. -EDUARDA performed 04/30/2023 revealed EF of 60%, moderate to severe AR worsening by high blood pressure, subaortic membrane with moderate to severe . Review Of Systems: At the time of my exam: CONSTITUTIONAL: Denies fever or chills. HEENT: Denies blurred vision, vision changes, or eye pain. Denies hemoptysis CARDIOVASCULAR: Denies chest pain. Denies orthopnea. Denies PND. Denies palpitations RESPIRATORY: Denies shortness of breath. GASTROINTESTINAL: Denies abdominal pain. Denies nausea or vomiting. HEMATOLOGIC: Denies bleeding disorders. GENITOURINARY: Denies any blood in urine. SKIN: Denies puritis. Denies rash. Physical examination: Gen: This is a morbidly obese 64-year-old female in no acute respiratory distress VS: reviewed HEENT: Head is atraumatic, normocephalic. Pupils equal, round. Sclerae is anicteric. NECK: Supple. No JVD. LUNGS: Clear to auscultation. No wheezes or rhonchi. No intercostal retractions. HEART: Irregular rate and rhythm. Systolic murmur. ABDOMEN: Soft No tenderness. EXTREMITIES: No pedal edema. No calf tenderness. NEUROLOGICAL: Patient is awake, alert and oriented x 2. 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 Nolan Further recommendations to follow based upon clinical course Thank you kindly for this consultation. Nurse practitioner note has been reviewed, I agree with documented findings and plan of care. Patient was seen and examined. Past Medical History Past Medical History: Asthma, Diabetes Mellitus, Pneumonia Additional Past Medical History / Comment(s): Respiratory failure May 01 2023, paranoid schizophrenia History of Any Multi-Drug Resistant Organisms: None Reported Past Surgical History: No Surgical Hx Reported Additional Past Surgical History / Comment(s): no previous surgeries Past Anesthesia/Blood Transfusion Reactions: No Reported Reaction Past Psychological History: Schizophrenia Additional Psychological History / Comment(s): Paranoid schizophrenia Smoking Status: Former smoker Past Alcohol Use History: None Reported Additional Past Alcohol Use History / Comment(s): started smoking at 14 and quit 2 years ago. 1-2 ppd Past Drug Use History: None Reported - Past Family History Mother History Unknown: Yes Family Medical History: No Reported History Father History Unknown: Yes Medications and Allergies Home Medications Medication Instructions Recorded Confirmed Type Atorvastatin [Lipitor] 10 mg PO DAILY 10/12/24 10/12/24 History Cholecalciferol (Vitamin D3) 50 mcg PO DAILY 10/12/24 10/12/24 History [Vitamin D3 (50 Mcg = 2000 Iu)] Cinacalcet [Sensipar] 30 mg PO DIRECTED 10/12/24 10/12/24 History Divalproex ER [Depakote ER] 500 mg PO BID 10/12/24 10/12/24 History Famotidine [Pepcid] 20 mg PO BID 10/12/24 10/12/24 History Fenofibrate,Micronized 134 mg PO DAILY 10/12/24 10/12/24 History [Fenofibrate] Fluticasone/Umeclidin/Vilanter 1 puff INHALATION RT-DAILY 10/12/24 10/12/24 History [Trelegy Ellipta 100-62.5-25] Furosemide [Lasix] 40 mg PO DAILY 10/12/24 10/12/24 History Insulin Aspart (Niacinamide) See Protocol SQ AC-TID 10/12/24 10/12/24 History [Fiasp 100 Unit/ml Vial] Insulin Glargine,Hum.rec.anlog 50 unit SQ BID 10/12/24 10/12/24 History [Basaglar Kwikpen U-100] Ipratropium-Albuterol Nebulize 3 ml INHALATION RT-Q6H PRN 10/12/24 10/12/24 History [Duoneb 0.5 mg-3 mg/3 ml Soln] Metoprolol Tartrate [Lopressor] 12.5 mg PO BID 10/12/24 10/12/24 History Montelukast [Singulair] 10 mg PO HS 10/12/24 10/12/24 History Tirzepatide [Mounjaro] 7.5 mg SQ Q7D 10/12/24 10/12/24 History cloZAPine [Clozaril] 50 mg PO DAILY 10/12/24 10/12/24 History cloZAPine [Clozaril] 100 mg PO TID 10/12/24 10/12/24 History metFORMIN HCL [Glucophage] 1,000 mg PO W/SUPPER 10/12/24 10/12/24 History metFORMIN HCL [Glucophage] 500 mg PO W/BRKFST 10/12/24 10/12/24 History traZODone HCL [Desyrel] 100 mg PO HS 10/12/24 10/12/24 History Allergies Allergy/AdvReac Type Severity Reaction Status Date / Time No Known Allergies Allergy Verified 10/12/24 17:03 Physical Exam Vitals: Vital Signs Temp Pulse Pulse Pulse Resp BP BP 10/13/24 05:00 94 16 140/60 10/12/24 23:18 115 H 16 109/63 10/12/24 20:00 97.9 F 89 18 130/65 10/12/24 19:55 97.5 F L 98 16 135/60 10/12/24 18:51 129 H 22 121/64 10/12/24 18:32 118 H 22 129/86 10/12/24 15:09 98.2 F 114 H 18 100/75 10/12/24 13:29 98.7 F 122 H 16 114/77 10/12/24 13:26 122 H 10/12/24 12:58 98 F 116 H 18 129/78 Pulse Ox 10/13/24 05:00 95 10/12/24 23:18 96 10/12/24 20:00 97 10/12/24 19:55 96 10/12/24 18:51 96 10/12/24 18:32 94 L 10/12/24 15:09 95 10/12/24 13:29 97 10/12/24 13:26 10/12/24 12:58 96 Intake and Output 10/12/24 10/13/24 10/13/24 22:59 06:59 14:59 Intake Total 124.28 Balance 124.28 Intake: IV 20 Diltiazem 125 mg In 20 Sodium Chloride 0.9% 100 ml @ 5 MG/HR 5 mls/hr IV .Q24H DEMETRIO Rx#:[id number] Intake, IV Titration 104.28 Amount Heparin Sod,Pork in 0.45% 104.28 NaCl 25,000 unit In 0.45 % NaCl 1 250ml.bag @ 7.68 UNITS/KG/HR 9.998 mls/hr IV .Q24H DEMETRIO Rx#: [id number] Other: # Voids 1 # Bowel Movements 1 Weight 130.181 kg 123.5 kg Results 10/13/24 07:41 10/13/24 07:41 Cardiac Enzymes 10/12/24 10/12/24 Range/Units 14:02 14:02 AST 16 (14-36) U/L Troponin I 0.026 (0.000-0.034) ng/mL Coagulation 10/12/24 10/13/24 10/13/24 Range/Units 14:02 00:29 07:41 PT 12.1 12.0 (10.0-12.5) sec APTT 26.5 28.0 28.2 (22.0-30.0) sec CBC 10/12/24 10/13/24 Range/Units 14:02 07:41 WBC 10.5 7.6 (3.8-10.6) k/uL RBC 3.61 L 3.66 L (3.80-5.40) m/uL Hgb 10.6 L 10.6 L (11.4-16.0) gm/dL Hct 32.5 L 34.3 (34.0-46.0) % Plt Count 236 218 (150-450) k/uL Comprehensive Metabolic Panel 10/12/24 10/13/24 Range/Units 14:02 07:41 Sodium 135 L 138 (137-145) mmol/L Potassium 4.0 4.3 (3.5-5.1) mmol/L Chloride 103 107 (98-107) mmol/L Carbon Dioxide 24 25 (22-30) mmol/L BUN 28 H 24 H (7-17) mg/dL Creatinine 1.25 H 1.11 H (0.52-1.04) mg/dL Glucose 166 H 208 H (74-99) mg/dL Calcium 8.8 8.4 (8.4-10.2) mg/dL AST 16 (14-36) U/L ALT 16 (4-34) U/L Alkaline Phosphatase 64 (38-126) U/L Total Protein 5.9 L (6.3-8.2) g/dL Albumin 3.7 (3.5-5.0) g/dL Current Medications Generic Name Dose Route Start Last Admin Trade Name Freq PRN Reason Stop Dose Admin Albuterol/Ipratropium 3 ml 10/12/24 17:50 10/13/24 08:26 Ipratropium-Albuterol 3 Ml Neb INHALATION 3 ml RT-Q6H PRN Administration Shortness Of Breath Atorvastatin Calcium 10 mg 10/13/24 09:00 Atorvastatin 10 Mg Tab PO DAILY DEMETRIO Benzocaine spray 10/13/24 08:31 Benzocaine [place] 1 Can TOPICAL TID PRN Skin Irritation Budesonide/Formoterol Fumarate 2 puff 10/13/24 08:00 10/13/24 08:26 Symbicort 80-4.5 Mcg Inhaler INHALATION 2 puff RT-BID DEMETRIO Administration Clozapine 100 mg 10/12/24 18:00 10/12/24 22:03 Clozapine 100 Mg Tab PO 10/18/24 23:00 100 mg TID DEMETRIO Administration Clozapine 50 mg 10/13/24 09:00 Clozapine 25 Mg Tab PO 10/18/24 23:00 DAILY DEMETRIO Divalproex Sodium 500 mg 10/12/24 21:00 10/12/24 21:36 Divalproex Er 500 Mg Tab.Er.24h PO 500 mg BID DEMETRIO Administration Famotidine 20 mg 10/12/24 21:00 10/12/24 21:36 Famotidine 20 Mg Tab PO 20 mg BID DEMETRIO Administration Fenofibrate 160 mg 10/13/24 09:00 Fenofibrate 160 Mg Tab PO DAILY DEMETRIO Fentanyl Citrate 50 mcg 10/13/24 08:31 Fentanyl (Pf) 50 Mcg/Ml 5 Ml Amp IVP 10/14/24 02:31 ONCE PRN Pre-Op Heparin Sodium (Porcine) 0 unit 10/12/24 15:46 10/13/24 01:23 Heparin Sodium 1,000 Un/Ml (10ml Vl) IV 4,000 unit PER PROTOCOL PRN Administration Low PTT Protocol Diltiazem HCl 125 mg/ Sodium 125 mls @ 5 mls/hr 10/12/24 15:30 10/12/24 18:48 Chloride IV 5 mg/hr .Q24H DEMETRIO 5 mls/hr Administration 5 MG/HR Heparin Sodium/Sodium Chloride 250 mls @ 9.998 mls/hr 10/12/24 16:00 10/13/24 01:15 25,000 unit/ Sodium Chloride IV 10.68 units/kg/hr .Q24H DEMETRIO 13.903 mls/hr Titration Protocol 7.68 UNITS/KG/HR Insulin Detemir 50 unit 10/12/24 21:00 10/13/24 06:53 Insulin Detemir (Levemir) 100 Unit/Ml Syr SQ 50 unit BID@0700,2100 DEMETRIO Administration Ipratropium [place] 0.5 mg 10/13/24 08:00 10/13/24 08:26 Ipratropium 0.5 Mg/2.5 Ml Nebu INHALATION Not Given RT-QID [facility] Midazolam HCl 1 mg 10/13/24 08:31 Midazolam 2 Mg/2 Ml Vial IV 10/14/24 02:31 ONCE PRN Pre-Op Montelukast Sodium 10 mg 10/12/24 21:00 10/12/24 21:36 Montelukast 10 Mg Tab PO 10 mg HS DEMETRIO Administration Naloxone HCl 0.2 mg 10/12/24 15:43 Naloxone 0.4 Mg/Ml 1 Ml Vial IV Q2M PRN Opioid Reversal Trazodone HCl 100 mg 10/12/24 21:00 10/12/24 21:36 Trazodone Hcl 100 Mg Tab PO 100 mg HS DEMETRIO Administration Intake and Output 10/12/24 10/13/24 10/13/24 22:59 06:59 14:59 Intake Total 124.28 Balance 124.28 Intake: IV 20 Diltiazem 125 mg In 20 Sodium Chloride 0.9% 100 ml @ 5 MG/HR 5 mls/hr IV .Q24H DEMETRIO Rx#:[id number] Intake, IV Titration 104.28 Amount Heparin Sod,Pork in 0.45% 104.28 NaCl 25,000 unit In 0.45 % NaCl 1 250ml.bag @ 7.68 UNITS/KG/HR 9.998 mls/hr IV .Q24H DEMETRIO Rx#: [id number] Other: # Voids 1 # Bowel Movements 1 Weight 130.181 kg 123.5 kg 10/13/24 07:41 10/13/24 07:41
[2024-10-13] MEDS: METOPROLOL TARTRATE 12.5 MG TAB PO SCH (11:36)
[2024-10-13 11:41] LABS: Glucose,Whole Blood 184 mg/dL (70-110)
[2024-10-13] MEDS ORDERED: PROPOFOL 10 MG/ML 20 ML VIAL IV ONE (14:55)
[2024-10-13] MEDS: IV FLUID CONTINUATION 1,000 ML IV ONE ×2 (15:00→15:14)
[2024-10-13 16:18] LABS: Glucose,Whole Blood 137 mg/dL (70-110)
--- NOTE | 2024-10-13 18:56 | P.HPIM ---
History of Present Illness H&P Date: 10/13/24 Chief Complaint: Dizziness Patient is a 64-year-old female with known history of paranoid schizophrenia, mentally challenged currently has a legal guardian, diabetes type 2 insulin- dependent, subaortic membrane and is on follow-up with her hospice art therapist at [facility] and prior history of smoking presents to ER with complaints of dizziness/lightheadedness and shortness of breath. Patient has been having symptoms for the past 1 week. Symptoms started after a bout of diarrhea. She was previously on Lasix and metformin which were recently taken off. She was seen by primary care physician in the office yesterday and EKG was done which showed new onset atrial fibrillation with RVR. She was sent to ER for further management. No prior history of atrial fibrillation. Patient otherwise denied any complaints of chest pain. She has been having bilateral lo wer extremity swelling. Denied any cough or sputum production. No fever no chills. EKG on admission showed atrial fibrillation with rapid ventricular response with heart rate 118 Chest x-ray showed venous congestion with small effusions. Laboratory data showed WBC 10.4 hemoglobin 10.6 and platelets 236 D-dimer 0.18 Sodium 135 potassium 4.0 BUN 28 and creatinine 1.25 blood sugar 166 magnesium 1.5 and proBNP 4760. TSH 1.0. Albumin 3.7. Review of Systems Constitutional: Patient denies any fever or chills . No generalized weakness or weight loss. Abdomen: Patient denied nausea vomiting and diarrhea and abdominal pain. Cardiovascular: Patient denies any chest pain. Positive short of breath no palpitations. Respiratory: patient denied any cough or sputum production. No shortness of breath Neurologic: Patient denied any numbness or tingling. no headache. Dizziness. Complete review of systems could not be obtained from the patient except as per HPI Past Medical History Past Medical History: Asthma, Diabetes Mellitus, Pneumonia Additional Past Medical History / Comment(s): Respiratory failure May 01 2023, paranoid schizophrenia History of Any Multi-Drug Resistant Organisms: None Reported Past Surgical History: No Surgical Hx Reported Additional Past Surgical History / Comment(s): no previous surgeries Past Anesthesia/Blood Transfusion Reactions: No Reported Reaction Past Psychological History: Schizophrenia Additional Psychological History / Comment(s): Paranoid schizophrenia Smoking Status: Former smoker Past Alcohol Use History: None Reported Additional Past Alcohol Use History / Comment(s): started smoking at 14 and quit 2 years ago. 1-2 ppd Past Drug Use History: None Reported - Past Family History Mother History Unknown: Yes Family Medical History: No Reported History Father History Unknown: Yes Medications and Allergies Home Medications Medication Instructions Recorded Confirmed Type Atorvastatin [Lipitor] 10 mg PO DAILY 10/12/24 10/12/24 History Cholecalciferol (Vitamin D3) 50 mcg PO DAILY 10/12/24 10/12/24 History [Vitamin D3 (50 Mcg = 2000 Iu)] Cinacalcet [Sensipar] 30 mg PO DIRECTED 10/12/24 10/12/24 History Divalproex ER [Depakote ER] 500 mg PO BID 10/12/24 10/12/24 History Famotidine [Pepcid] 20 mg PO BID 10/12/24 10/12/24 History Fenofibrate,Micronized 134 mg PO DAILY 10/12/24 10/12/24 History [Fenofibrate] Fluticasone/Umeclidin/Vilanter 1 puff INHALATION RT-DAILY 10/12/24 10/12/24 History [Trelegy Ellipta 100-62.5-25] Furosemide [Lasix] 40 mg PO DAILY 10/12/24 10/12/24 History Insulin Aspart (Niacinamide) See Protocol SQ AC-TID 10/12/24 10/12/24 History [Fiasp 100 Unit/ml Vial] Insulin Glargine,Hum.rec.anlog 50 unit SQ BID 10/12/24 10/12/24 History [Basaglar Kwikpen U-100] Ipratropium-Albuterol Nebulize 3 ml INHALATION RT-Q6H PRN 10/12/24 10/12/24 History [Duoneb 0.5 mg-3 mg/3 ml Soln] Metoprolol Tartrate [Lopressor] 12.5 mg PO BID 10/12/24 10/12/24 History Montelukast [Singulair] 10 mg PO HS 10/12/24 10/12/24 History Tirzepatide [Mounjaro] 7.5 mg SQ Q7D 10/12/24 10/12/24 History cloZAPine [Clozaril] 50 mg PO DAILY 10/12/24 10/12/24 History cloZAPine [Clozaril] 100 mg PO TID 10/12/24 10/12/24 History metFORMIN HCL [Glucophage] 1,000 mg PO W/SUPPER 10/12/24 10/12/24 History metFORMIN HCL [Glucophage] 500 mg PO W/BRKFST 10/12/24 10/12/24 History traZODone HCL [Desyrel] 100 mg PO HS 10/12/24 10/12/24 History Allergies Allergy/AdvReac Type Severity Reaction Status Date / Time No Known Allergies Allergy Verified 10/12/24 17:03 Physical Exam Vitals: Vital Signs Temp Pulse Pulse Pulse Resp BP BP 10/13/24 08:46 82 10/13/24 08:37 86 10/13/24 08:00 82 16 132/62 10/13/24 05:00 94 16 140/60 10/12/24 23:18 115 H 16 109/63 10/12/24 20:00 97.9 F 89 18 130/65 10/12/24 19:55 97.5 F L 98 16 135/60 10/12/24 18:51 129 H 22 121/64 10/12/24 18:32 118 H 22 129/86 10/12/24 15:09 98.2 F 114 H 18 100/75 10/12/24 13:29 98.7 F 122 H 16 114/77 10/12/24 13:26 122 H 10/12/24 12:58 98 F 116 H 18 129/78 Pulse Ox 10/13/24 08:46 10/13/24 08:37 95 10/13/24 08:00 96 10/13/24 05:00 95 10/12/24 23:18 96 10/12/24 20:00 97 10/12/24 19:55 96 10/12/24 18:51 96 10/12/24 18:32 94 L 10/12/24 15:09 95 10/12/24 13:29 97 10/12/24 13:26 10/12/24 12:58 96 Intake and Output 10/12/24 10/13/24 10/13/24 22:59 06:59 14:59 Intake Total 124.28 112.151 Balance 124.28 112.151 Intake: IV 20 Diltiazem 125 mg In 20 Sodium Chloride 0.9% 100 ml @ 5 MG/HR 5 mls/hr IV .Q24H DEMETRIO Rx#:[id number] Intake, IV Titration 104.28 112.151 Amount Heparin Sod,Pork in 0.45% 104.28 112.151 NaCl 25,000 unit In 0.45 % NaCl 1 250ml.bag @ 7.68 UNITS/KG/HR 9.998 mls/hr IV .Q24H DEMETRIO Rx#: [id number] Other: # Voids 1 # Bowel Movements 1 Weight 130.181 kg 123.5 kg PHYSICAL EXAMINATION: Patient is sitting in a chair., no acute distress, awake alert and oriented.. HEENT: Normocephalic. Neck is supple. Pupils reactive. Nostrils clear. Oral cavity is moist. Neck reveals no JVD, carotid bruits, or thyromegaly. CHEST EXAMINATION: Trachea is central. Symmetrical expansion. Bibasilar diminished sounds. No wheezing. Otherwise lung gibbs clear to auscultation and percussion. CARDIAC: Normal S1, S2 with no gallops. Mild systolic murmur. ABDOMEN: Soft. Bowel sounds normal. No organomegaly. No abdominal bruits. Extremities: Bilateral lower extremity 2+ edema. No clubbing or cyanosis Neurologically awake, alert, oriented x3 with well-coordinated movements. No focal deficits noted Skin: No rash or skin lesions. Psychiatric: Coperative. Could not be assessed completely Musculoskeletal: No joint swelling or deformity. Normal range of motion. Results CBC & Chem 7: 10/13/24 07:41 10/13/24 07:41 Labs: Abnormal Lab Results - Last 24 Hours (Table) 10/12/24 10/12/24 10/12/24 Range/Units 14:02 14:02 20:37 RBC 3.61 L (3.80-5.40) m/uL Hgb 10.6 L (11.4-16.0) gm/dL Hct 32.5 L (34.0-46.0) % Sodium 135 L (137-145) mmol/L BUN 28 H (7-17) mg/dL Creatinine 1.25 H (0.52-1.04) mg/dL Glucose 166 H (74-99) mg/dL POC Glucose (mg/dL) 153 H (70-110) mg/dL Magnesium 1.5 L (1.6-2.3) mg/dL Total Protein 5.9 L (6.3-8.2) g/dL 10/13/24 10/13/24 10/13/24 Range/Units 06:23 07:41 07:41 RBC 3.66 L (3.80-5.40) m/uL Hgb 10.6 L (11.4-16.0) gm/dL Hct (34.0-46.0) % Sodium (137-145) mmol/L BUN 24 H (7-17) mg/dL Creatinine 1.11 H (0.52-1.04) mg/dL Glucose 208 H (74-99) mg/dL POC Glucose (mg/dL) 179 H (70-110) mg/dL Magnesium (1.6-2.3) mg/dL Total Protein (6.3-8.2) g/dL Thrombosis Risk Factor Assmnt - DVT/VTE Prophylaxis DVT/VTE Prophylaxis: Pharmacologic Prophylaxis ordered - Choose All That Apply Each Risk Factor Represents 2 Points: Age 61-74 years Thrombosis Risk Factor Assessment Total Risk Factor Score: 2 Thrombosis Risk Factor Assessment Level: Low Risk Assessment and Plan Assessment: New onset atrial fibrillation with rapid response. Dizziness secondary to above. 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 Possible obstructive sleep apnea DVT prophylaxis and GI prophylaxis Plan: Patient be continued on telemonitoring. She was started on Cardizem drip and heparin drip. Cardiology is on board and is planning for EDUARDA/cardioversion today. Continue with DuoNebs and Symbicort. Insulin regimen and sliding scale for better blood sugar control. Follow-up renal function. Patient is tolerating oral diet. Continue with home medications. Discussed with her legal guardian at bedside in detail. Follow-up closely. Time with Patient: Greater than 30
--- NOTE | 2024-10-13 20:34 | P.PCN ---
Date of Procedure: 10/13/24 Operative Findings: Transesophageal echocardiogram EDUARDA Performing physician Josep Nolan MD Indication Rule out intracardiac thrombus before cardioversion Complication None Level of sedation The procedure was performed after the patient was sedated using propofol Procedure description After obtaining an informed consent the patient was brought to the recovery room. The pulse oximetry and heart rate monitors were enlarged the patient. Subsequently the patient was turned into left lateral position. A bite guard was placed after the patient's throat was sprayed using lidocaine. Subsequently the transesophageal echocardiogram probe was advanced to the mid esophageal through the bite guard where 2D echocardiogram images as well as color Doppler and pulse-wave Doppler were obtained. The procedure was completed with no complication Conclusion Intact left atrial appendage with no evidence of thrombus Intact intra-atrial septum Normal biventricular systolic function Biatrial enlargement Aortic sclerosis with no stenosis or insufficiency Thickened mitral valve leaflets with mild to moderate MR No evidence of pericardial effusion
--- NOTE | 2024-10-13 20:35 | P.PCN ---
Date of Procedure: 10/13/24 Operative Findings: Cardioversion report Performing physician Josep Nolan MD Procedure performed Successful cardioversion of atrial fibrillation to normal sinus mechanism using 200 J and first attempt Procedure description After transesophageal echocardiogram was performed and left atrial appendage thr ombus was ruled out the patient cardioverted from atrial fibrillation to normal sinus mechanism using 200 J at first attempt. No complication reported Postprocedure management Continue current medical regimen Start the patient on oral anticoagulation Follow-up with the patient
[2024-10-13 20:39] LABS: Glucose,Whole Blood 218 mg/dL (70-110)
[2024-10-13] MEDS: METOPROLOL TARTRATE 25 MG TAB PO SCH (21:05)
[2024-10-13] MEDS: APIXABAN 5 MG TAB PO SCH (21:05)
[2024-10-14 06:16] LABS: Glucose,Whole Blood 234 mg/dL (70-110)
[2024-10-14 08:40] LABS: Basophils % (A) 1 %; Eosinophils # (A) 0.8 k/uL (0-0.7); Eosinophils % (A) 10 %; HCT 33.1 % (34.0-46.0); HGB 10.2 gm/dL (11.4-16.0); Hypochromasia Moderate; Lymphocytes # (A) 1.3 k/uL (1.0-4.8); Lymphocytes % (A) 15 %; MCH 29.1 pg (25.0-35.0); MCHC 30.8 g/dL (31.0-37.0); MCV 94.5 fL (80.0-100.0); Mean Platelet Volume 8.4; Monocytes # (A) 0.5 k/uL (0-1.0); Monocytes % (A) 6 %; Neutrophils # (A) 5.8 k/uL (1.3-7.7); Neutrophils % (A) 68 %; Platelet Count 224 k/uL (150-450); RDW 14.9 % (11.5-15.5); WBC 8.5 k/uL (3.8-10.6)
[2024-10-14 08:44] LABS: African American GFR (CKD) 48 (>60 ml/min/1.73 sqM); Anion Gap 8 mmol/L; Blood Urea Nitrogen 20 mg/dL (7-17); Calcium 9.1 mg/dL (8.4-10.2); Carbon Dioxide 29 mmol/L (22-30); Chloride 102 mmol/L (98-107); Glucose 218 mg/dL (74-99); Non-African American GFR(CKD) 42 (>60 ml/min/1.73 sqM); Potassium 4.8 mmol/L (3.5-5.1); Sodium 139 mmol/L (137-145)
[2024-10-14 11:31] LABS: Glucose,Whole Blood 301 mg/dL (70-110)
[2024-10-14] MEDS ORDERED: DEXTROSE 50% SYRINGE 50 ML IVP PRN ×2 (11:35)
[2024-10-14] MEDS: INSULIN ASPART (NovoLOG) 100 UNIT/ML VIAL SQ SCH (11:42)
--- NOTE | 2024-10-14 12:26 | P.PN ---
Subjective Progress Note Date: 10/14/24 This is a 64-year-old female patient of Dr. SAFIA Riley with past medical history of diabetes, COPD, bronchial asthma, aortic stenosis with a subaortic membrane, schizophrenia, morbid obesity, remote history of tobacco use. We have been asked to evaluate the patient for A-fib with RVR. Patient does have a public guardian. Patient states that she came into the hospital because she had dizziness and she was not breathing right. She denies any chest pain. She denies any dizziness at this time. She has no previous history of atrial fibrillation. She has never had any surgery or stenting done on her heart. Patient was found to be in A-fib with RVR and started on Cardizem bolus followed by drip at 5 mg/h and also started on a heparin drip. Patient remains in atrial fibrillation running about 120 bpm. Blood pressure 140/60, pulse ox 95% on room air. Patient follows at [facility] every [address] Leonardo. Patient was stable on her last visit in February 2023 at which time they deemed her not an appropriate candidate for surgical intervention due to her severe underlying mental health issues. -EKG: Atrial fibrillation at 118 bpm -Chest x-ray: Venous congestion with small effusions -Laboratory studies: WBC 7.6, hemoglobin 10.6, sodium 138, potassium 4.3, BUN 24 and creatinine 1.11. Troponin 0.026, proBNP 4760. TSH 1.0. -Home cardiac medications: Atorvastatin 10 mg daily, fenofibrate 134 mg daily, Lasix 40 mg daily, Lopressor 12.5 mg twice daily. Patient is also on Mounjaro. -EDUARDA performed 04/30/2023 revealed EF of 60%, moderate to severe AR worsening by high blood pressure, subaortic membrane with moderate to severe . Progress note October 14, 2024 Patient is seen and examined at bedside this a.m. She is maintaining normal sinus rhythm. She denies any chest pain chest pressure. She denies any post EDUARDA complications. Physical examination: Gen: This is a morbidly obese 64-year-old female in no acute respiratory distress VS: reviewed HEENT: Head is atraumatic, normocephalic. Pupils equal, round. Sclerae is anicteric. NECK: Supple. No JVD. LUNGS: Clear to auscultation. No wheezes or rhonchi. No intercostal retractions. HEART: Irregular rate and rhythm. Systolic murmur. ABDOMEN: Soft No tenderness. EXTREMITIES: No pedal edema. No calf tenderness. NEUROLOGICAL: Patient is awake, alert and oriented x 2. 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 She is on Mounjaro on outpatient basis. Would request primary team to adjust her insulin dose if needed Patient is cleared to be discharged from cardiac standpoint. Recommend outpati ent follow-up with primary seed pelleter and primary care physician. Objective - Vital Signs Vital signs: Vital Signs Temp 98.1 F 10/14/24 08:53 Pulse 72 10/14/24 08:00 Resp 16 10/14/24 08:00 BP 138/64 10/14/24 08:00 Pulse Ox 94 L 10/14/24 09:44 FiO2 Intake & Output 10/13/24 10/14/24 10/14/24 18:59 06:59 18:59 Intake Total 948.029 10 480 Balance 948.029 10 480 Weight 129.1 kg Intake: IV 200 10 0.9% NS 10mL 10 Intake, IV Titration 268.029 Amount Diltiazem 125 mg In 93.25 Sodium Chloride 0.9% 100 ml @ 5 MG/HR 5 mls/hr IV .Q24H DEMETRIO Rx#:[id number] Heparin Sod,Pork in 0.45% 174.779 NaCl 25,000 unit In 0.45 % NaCl 1 250ml.bag @ 7.68 UNITS/KG/HR 9.998 mls/hr IV .Q24H DEMETRIO Rx#: [id number] Oral 480 480 Other: Voiding Method Toilet # Voids 1 - Labs CBC & Chem 7: 10/14/24 07:19 10/14/24 07:19 Labs: Abnormal Lab Results - Last 24 Hours (Table) 10/13/24 10/13/24 10/14/24 Range/Units 16:17 20:37 06:14 RBC (3.80-5.40) m/uL Hgb (11.4-16.0) gm/dL Hct (34.0-46.0) % MCHC (31.0-37.0) g/dL Eosinophils # (0-0.7) k/uL BUN (7-17) mg/dL Creatinine (0.52-1.04) mg/dL Glucose (74-99) mg/dL POC Glucose (mg/dL) 137 H 218 H 234 H (70-110) mg/dL 10/14/24 10/14/24 10/14/24 Range/Units 07:19 07:19 11:18 RBC 3.50 L (3.80-5.40) m/uL Hgb 10.2 L (11.4-16.0) gm/dL Hct 33.1 L (34.0-46.0) % MCHC 30.8 L (31.0-37.0) g/dL Eosinophils # 0.8 H (0-0.7) k/uL BUN 20 H (7-17) mg/dL Creatinine 1.35 H (0.52-1.04) mg/dL Glucose 218 H (74-99) mg/dL POC Glucose (mg/dL) 301 H (70-110) mg/dL
[2024-10-14 12:28] VITALS: RESP 18
[2024-10-14] MEDS: DAPAGLIFLOZIN PROPANEDIOL 10 MG TABLET PO SCH (12:41)
[2024-10-14 13:22] LABS: % Iron Saturation 7.49 (12.00-45.00); Iron 32 UG/DL (50-170); Total Iron Binding Capacity 427 UG/DL (228-460)
[2024-10-14 15:28] VITALS: BP 146/58; PULSE 82; TEMP 97.8
[2024-10-14 16:13] LABS: Glucose,Whole Blood 207 mg/dL (70-110)
[2024-10-15] MEDS ORDERED: ATORVASTATIN 40 MG TAB PO SCH (09:00)
[2024-10-15] MEDS ORDERED: FAMOTIDINE 20 MG TAB PO SCH (09:00)
== END 2024-10-14 18:15 | disposition home or self-care (01) | DRG 308 ==
LOC: EC 12:53 → 3SCARD 15:44
PROVIDERS: ADMIT Hospitalist; ATTEND Hospitalist
PROC: 5A2204Z Restoration of Cardiac Rhythm, Single (ICD-10-PCS; 2024-10-13)
PROC: B24BZZ4 Ultrasonography of Heart with Aorta, Transesophageal (ICD-10-PCS; principal; 2024-10-13 07:30)
DX: I48.0 Paroxysmal atrial fibrillation (principal); N17.0 Acute kidney failure with tubular necrosis; F20.0 Paranoid schizophrenia; Z68.41 Body mass index [BMI] 40.0-44.9, adult; D64.9 Anemia, unspecified; E66.01 Morbid (severe) obesity due to excess calories; I35.0 Nonrheumatic aortic (valve) stenosis; I70.0 Atherosclerosis of aorta; J44.89 Other specified chronic obstructive pulmonary disease; E83.42 Hypomagnesemia; E11.65 Type 2 diabetes mellitus with hyperglycemia; Z79.01 Long term (current) use of anticoagulants; Z79.4 Long term (current) use of insulin; Z79.84 Long term (current) use of oral hypoglycemic drugs; Z87.891 Personal history of nicotine dependence; Z79.899 Other long term (current) drug therapy
CPT/HCPCS: 36415; 71046; 80048; 80053; 82306; 83540; 83550; 83735; 83880; 84443; 84484; 85025; 85379; 85610; 85730; 92960; 93005; 93312; 93320; 93325; 94640; 94760; 96365; 96366; 96367; 96368; 99285

== ENCOUNTER 2024-10-17 15:17 | Inpatient (IN) | payer MEDICARE ==
--- NOTE | 2024-10-17 15:38 | ED ---
General Adult HPI - General Chief complaint: Shortness of Breath Stated complaint: TY Time Seen by Provider: 10/17/24 15:36 Source: patient, family Mode of arrival: wheelchair Limitations: no limitations - History of Present Illness Initial comments: Patient presents to the ED by ambulance for evaluation with her guardian at bedside. Patient states that she has had a dry/nonproductive cough, wheezing and dyspnea since yesterday. Guardian states that the patient was recently discharged from the hospital after being diagnosed with new onset A-fib, and she is currently on Eliquis anticoagulation therapy. Patient denies having any pain, fever or chills, headache, sore throat, chest pain or pressure, hemoptysis, palpitations, dizziness, nausea/vomiting/diarrhea, bloody or melanotic stool, abdominal pain, dysuria or urinary symptoms, decreased urine output, leg or calf swelling or pain, or any other symptoms or complaints. Patient states that she has been taking her home neb treatments with minimal to no relief. Patient denies any known sick contact. - Related Data Home Medications Medication Instructions Recorded Confirmed Atorvastatin [Lipitor] 10 mg PO DAILY 10/12/24 10/12/24 Cholecalciferol (Vitamin D3) 50 mcg PO DAILY 10/12/24 10/12/24 [Vitamin D3 (50 Mcg = 2000 Iu)] Cinacalcet [Sensipar] 30 mg PO DIRECTED 10/12/24 10/12/24 Divalproex ER [Depakote ER] 500 mg PO BID 10/12/24 10/12/24 Famotidine [Pepcid] 20 mg PO BID 10/12/24 10/12/24 Fenofibrate,Micronized 134 mg PO DAILY 10/12/24 10/12/24 [Fenofibrate] Fluticasone/Umeclidin/Vilanter 1 puff INHALATION RT-DAILY 10/12/24 10/12/24 [Trelegy Ellipta 100-62.5-25] Insulin Aspart (Niacinamide) See Protocol SQ AC-TID 10/12/24 10/12/24 [Fiasp 100 Unit/ml Vial] Insulin Glargine,Hum.rec.anlog 50 unit SQ BID 10/12/24 10/12/24 [Basaglar Aida U-100] Ipratropium-Albuterol Nebulize 3 ml INHALATION RT-Q6H PRN 10/12/24 10/12/24 [Duoneb 0.5 mg-3 mg/3 ml Soln] Montelukast [Singulair] 10 mg PO HS 10/12/24 10/12/24 Tirzepatide [Mounjaro] 7.5 mg SQ Q7D 10/12/24 10/12/24 cloZAPine [Clozaril] 50 mg PO DAILY 10/12/24 10/12/24 cloZAPine [Clozaril] 100 mg PO TID 10/12/24 10/12/24 metFORMIN HCL [Glucophage] 1,000 mg PO W/SUPPER 10/12/24 10/12/24 metFORMIN HCL [Glucophage] 500 mg PO W/BRKFST 10/12/24 10/12/24 traZODone HCL [Desyrel] 100 mg PO HS 10/12/24 10/12/24 Previous Rx's Medication Instructions Recorded Apixaban [Eliquis] 5 mg PO BID #60 tab 10/14/24 Dapagliflozin Propanediol [Farxiga] 10 mg PO DAILY #30 tab 10/14/24 Ferrous Sulfate [Feosol] 325 mg PO DAILY #30 tab 10/14/24 Metoprolol Tartrate [Lopressor] 25 mg PO TID #90 tab 10/14/24 Allergies Allergy/AdvReac Type Severity Reaction Status Date / Time No Known Allergies Allergy Verified 10/17/24 15:30 Review of Systems ROS Statement: Those systems with pertinent positive or pertinent negative responses have been documented in the HPI. ROS Other: All systems not noted in ROS Statement are negative. Past Medical History Past Medical History: Asthma, Diabetes Mellitus, Pneumonia Additional Past Medical History / Comment(s): Respiratory failure May 01 2023, paranoid schizophrenia History of Any Multi-Drug Resistant Organisms: None Reported Past Surgical History: No Surgical Hx Reported Additional Past Surgical History / Comment(s): no previous surgeries Past Anesthesia/Blood Transfusion Reactions: No Reported Reaction Past Psychological History: Schizophrenia Smoking Status: Former smoker Past Alcohol Use History: None Reported Past Drug Use History: None Reported - Past Family History Mother History Unknown: Yes Family Medical History: No Reported History Father History Unknown: Yes General Exam Limitations: no limitations General appearance: alert, in no apparent distress Head exam: Present: atraumatic Eye exam: Present: normal appearance ENT exam: Present: mucous membranes moist Neck exam: Present: other (Trachea is in midline) Respiratory exam: Present: other (Bilateral wheezes). Absent: respiratory distress, rales, rhonchi, stridor Cardiovascular Exam: Present: regular rate, normal rhythm, normal heart sounds, other (Normal radial pulses bilaterally) GI/Abdominal exam: Present: soft. Absent: tenderness, guarding Extremities exam: Present: other (Negative Homans' sign bilaterally). Absent: tenderness, pedal edema, calf tenderness Neurological exam: Present: alert, oriented X3. Absent: motor sensory deficit Psychiatric exam: Present: normal affect Skin exam: Present: warm, dry, normal color Course Vital Signs 10/17/24 10/17/24 10/17/24 15:23 15:49 15:56 Temperature 99.9 F H Pulse Rate 84 78 86 Respiratory 22 Rate Blood Pressure 107/56 O2 Sat by Pulse 92 L Oximetry 10/17/24 17:13 Temperature Pulse Rate 80 Respiratory 18 Rate Blood Pressure 97/65 O2 Sat by Pulse Oximetry - Reevaluation(s) Reevaluation #1: 10/17/24 17:12 Case, H&P, test results and ED management thus far were discussed with WATER SOFTENER SERVICE SUPERVISOR Melanie Sevilla. She accepts hospital admission on behalf of the [facility] hospitalist group. She has no further recommendations at this time. 10/17/24 17:19 Patient and guardian are aware the patient's test results, and they both agree with hospital admission at this time. Patient remains alert and breathing comfortably. Patient's wheezing has improved somewhat with the DuoNeb treatment that she was given in the ED. Patient and guardian are both requesting medication to help with the patient's anxiety at this time. EKG Findings - EKG Comments: EKG Findings:: ED physician interpretation (interpreted by me): Normal sinus rhythm, ventricular rate 81 bpm, no ectopy, normal MN interval, left anterior fascicular block, QRS duration of 123 ms, normal QT interval, normal axis, no ST or T wave abnormality Medical Decision Making - Medical Decision Making Was pt. sent in by a medical professional or institution (, PA, WATER SOFTENER SERVICE SUPERVISOR, urgent care, hospital, or [facility]...) When possible be specific @ -No Did you speak to anyone other than the patient for history (EMS, parent, family, police, friend...)? What history was obtained from this source @ -History was also obtained from the patient's guardian. Did you review nursing and triage notes (agree or disagree)? Why? @ -I reviewed and agree with nursing and triage notes Were old charts reviewed (outside hosp., previous admission, EMS record, old EKG, old radiological studies, urgent care reports/EKG's, [facility] records)? Report findings @ -No old charts were reviewed Differential Diagnosis (chest pain, altered mental status, abdominal pain women, abdominal pain men, vaginal bleeding, weakness, fever, dyspnea, syncope, headache, dizziness, GI bleed, back pain, seizure, CVA, palpatations, mental health, musculoskeletal)? @ -Differential Dyspnea: Coronary syndrome, arrhythmia, tamponade, asthma, COPD, bronchospasm, COVID infection, influenza, viral illness, URI, bronchitis, pneumonia, pneumothorax, pleural effusion, CHF, pulmonary edema, anemia, neuromuscular, this is not meant to be an all-inclusive list. EKG interpreted by me (3pts min.). @ -As above X-rays interpreted by me (1pt min.). @ -Chest x-ray was reviewed myself and shows cardiomegaly with mild pulmonary vascular congestion. I agree with the radiologist's interpretation as above. CT interpreted by me (1pt min.). @ -None done U/S interpreted by me (1pt. min.). @ -None done What testing was considered but not performed or refused? (CT, X-rays, U/S, labs)? Why? @ -None What meds were considered but not given or refused? Why? @ -None Did you discuss the management of the patient with other professionals (prof christo i.e. , PA, WATER SOFTENER SERVICE SUPERVISOR, lab, RT, psych nurse, social media editor, lawyers, teacher, air support control officer, clinical case manager)? Give summary @ -As above. Was smoking cessation discussed for >3mins.? @ -No Was critical care preformed (if so, how long)? @ -No Were there social determinants of health that impacted care today? How? (Homelessness, low income, unemployed, alcoholism, drug addiction, transportation, low edu. Level, literacy, decrease access to med. care, longterm, rehab)? @ -No Was there de-escalation of care discussed even if they declined (Discuss DNR or withdrawal of care, Hospice)? DNR status @ -No What co-morbidities impacted this encounter? (DM, HTN, Smoking, COPD, CAD, Cancer, CVA, ARF, Chemo, Hep., AIDS, mental health diagnosis, sleep apnea, morbid obesity)? @ -COPD Was patient admitted / discharged? Hospital course, mention meds given and route, prescriptions, significant lab abnormalities, going to OR and other pertinent info. @ -Patient presented to the ED with complaints of cough, wheezing and dyspnea. Patient's COVID study is positive. Patient's chest x-ray demonstrates cardiomegaly and mild pulmonary vascular congestion. Patient's troponin is negative. Patient has been treated with a DuoNeb treatment and IV Solu-Medrol in the ED. Patient's wheezing and dyspnea have improved with ED treatment. Patient is alert and breathing comfortably at this time. Will admit the patient to the hospital for continued monitoring/treatment, as well as supplemental oxygen. Patient and guardian agree with this plan. WATER SOFTENER SERVICE SUPERVISOR Melanie Sevilla has accepted hospital admission. Undiagnosed new problem with uncertain prognosis? @ -No Drug Therapy requiring intensive monitoring for toxicity (Heparin, Nitro, Insulin, Cardizem)? @ -No Were any procedures done? @ -No Diagnosis/symptom? @ -COVID-19 infection Acute, or Chronic, or Acute on Chronic? @ -Acute Uncomplicated (without systemic symptoms) or Complicated (systemic symptoms)? @ -Default Side effects of treatment? @ -No Exacerbation, Progression, or Severe Exacerbation? @ -No Poses a threat to life or bodily function? How? (Chest pain, USA, NM, pneumonia, PE, COPD, DKA, ARF, appy, cholecystitis, CVA, Diverticulitis, Homicidal, Suicidal, threat to staff... and all critical care pts) @ -No Diagnosis/symptom? @ -COPD exacerbation Acute, or Chronic, or Acute on Chronic? @ -Acute on chronic Uncomplicated (without systemic symptoms) or Complicated (systemic symptoms)? @ -Default Side effects of treatment? @ -None Exacerbation, Progression, or Severe Exacerbation] @ -Exacerbation Poses a threat to life or bodily function? @ -Possibly - Lab Data Result diagrams: 10/17/24 15:48 10/17/24 15:48 Lab Results 10/17/24 10/17/24 10/17/24 Range/Units 15:48 15:48 15:48 WBC 6.8 (3.8-10.6) k/uL RBC 3.34 L (3.80-5.40) m/uL Hgb 9.8 L (11.4-16.0) gm/dL Hct 30.7 L (34.0-46.0) % MCV 91.7 (80.0-100.0) fL MCH 29.3 (25.0-35.0) pg MCHC 32.0 (31.0-37.0) g/dL RDW 15.0 (11.5-15.5) % Plt Count 251 (150-450) k/uL MPV 7.8 Neutrophils % 75 % Lymphocytes % 13 % Monocytes % 6 % Eosinophils % 3 % Basophils % 0 % Neutrophils # 5.1 (1.3-7.7) k/uL Lymphocytes # 0.9 L (1.0-4.8) k/uL Monocytes # 0.4 (0-1.0) k/uL Eosinophils # 0.2 (0-0.7) k/uL Basophils # 0.0 (0-0.2) k/uL Hypochromasia Slight PT 12.1 (10.0-12.5) sec INR 1.1 (<1.2) APTT 27.5 (22.0-30.0) sec Sodium 136 L (137-145) mmol/L Potassium 4.4 (3.5-5.1) mmol/L Chloride 106 (98-107) mmol/L Carbon Dioxide 21 L (22-30) mmol/L Anion Gap 9 mmol/L BUN 19 H (7-17) mg/dL Creatinine 1.21 H (0.52-1.04) mg/dL Est GFR (CKD-EPI)AfAm 55 (>60 ml/min/1.73 sqM) Est GFR (CKD-EPI)NonAf 48 (>60 ml/min/1.73 sqM) Glucose 161 H (74-99) mg/dL Calcium 8.6 (8.4-10.2) mg/dL Total Bilirubin 0.2 (0.2-1.3) mg/dL AST 37 H (14-36) U/L ALT 31 (4-34) U/L Alkaline Phosphatase 70 (38-126) U/L Troponin I (0.000-0.034) ng/mL NT-Pro-B Natriuret Pep 2200 pg/mL Total Protein 6.1 L (6.3-8.2) g/dL Albumin 3.7 (3.5-5.0) g/dL Influenza Type A (PCR) (Not Detectd) Influenza Type B (PCR) (Not Detectd) RSV (PCR) (Not Detectd) SARS-CoV-2 (PCR) (Not Detectd) 10/17/24 10/17/24 Range/Units 15:48 15:48 WBC (3.8-10.6) k/uL RBC (3.80-5.40) m/uL Hgb (11.4-16.0) gm/dL Hct (34.0-46.0) % MCV (80.0-100.0) fL MCH (25.0-35.0) pg MCHC (31.0-37.0) g/dL RDW (11.5-15.5) % Plt Count (150-450) k/uL MPV Neutrophils % % Lymphocytes % % Monocytes % % Eosinophils % % Basophils % % Neutrophils # (1.3-7.7) k/uL Lymphocytes # (1.0-4.8) k/uL Monocytes # (0-1.0) k/uL Eosinophils # (0-0.7) k/uL Basophils # (0-0.2) k/uL Hypochromasia PT (10.0-12.5) sec INR (<1.2) APTT (22.0-30.0) sec Sodium (137-145) mmol/L Potassium (3.5-5.1) mmol/L Chloride (98-107) mmol/L Carbon Dioxide (22-30) mmol/L Anion Gap mmol/L BUN (7-17) mg/dL Creatinine (0.52-1.04) mg/dL Est GFR (CKD-EPI)AfAm (>60 ml/min/1.73 sqM) Est GFR (CKD-EPI)NonAf (>60 ml/min/1.73 sqM) Glucose (74-99) mg/dL Calcium (8.4-10.2) mg/dL Total Bilirubin (0.2-1.3) mg/dL AST (14-36) U/L ALT (4-34) U/L Alkaline Phosphatase (38-126) U/L Troponin I 0.024 (0.000-0.034) ng/mL NT-Pro-B Natriuret Pep pg/mL Total Protein (6.3-8.2) g/dL Albumin (3.5-5.0) g/dL Influenza Type A (PCR) Not Detected (Not Detectd) Influenza Type B (PCR) Not Detected (Not Detectd) RSV (PCR) Not Detected (Not Detectd) SARS-CoV-2 (PCR) Detected A (Not Detectd) - Radiology Data Chest x-ray: Cardiomegaly and mild pulmonary vascular congestive changes. Disposition Clinical Impression: COPD exacerbation, COVID-19 virus infection Disposition: ADMITTED IP TO THIS HOSP Condition: Stable Is patient prescribed a controlled substance at d/c from ED?: No Referrals: Rico Betts DO [Primary Care Provider] - 1-2 days Time of Disposition: 17:17
[2024-10-17] MEDS: IPRATROPIUM-ALBUTEROL 3 ML NEB INHALATION STA (15:46)
[2024-10-17 15:57] LABS: Basophils % (A) 0 %; Eosinophils # (A) 0.2 k/uL (0-0.7); Eosinophils % (A) 3 %; HCT 30.7 % (34.0-46.0); HGB 9.8 gm/dL (11.4-16.0); Hypochromasia Slight; Lymphocytes # (A) 0.9 k/uL (1.0-4.8); Lymphocytes % (A) 13 %; MCH 29.3 pg (25.0-35.0); MCV 91.7 fL (80.0-100.0); Mean Platelet Volume 7.8; Monocytes # (A) 0.4 k/uL (0-1.0); Monocytes % (A) 6 %; Neutrophils # (A) 5.1 k/uL (1.3-7.7); Neutrophils % (A) 75 %; Platelet Count 251 k/uL (150-450); RBC 3.34 m/uL (3.80-5.40); WBC 6.8 k/uL (3.8-10.6)
[2024-10-17 16:08] LABS: INR 1.1 (<1.2); Partial Thromboplastin Time 27.5 sec (22.0-30.0); Prothrombin Time 12.1 sec (10.0-12.5)
[2024-10-17 16:26] LABS: ALT 31 U/L (4-34); AST 37 U/L (14-36); African American GFR (CKD) 55 (>60 ml/min/1.73 sqM); Albumin 3.7 g/dL (3.5-5.0); Alkaline Phosphatase 70 U/L (38-126); Anion Gap 9 mmol/L; Blood Urea Nitrogen 19 mg/dL (7-17); Calcium 8.6 mg/dL (8.4-10.2); Carbon Dioxide 21 mmol/L (22-30); Chloride 106 mmol/L (98-107); Glucose 161 mg/dL (74-99); Non-African American GFR(CKD) 48 (>60 ml/min/1.73 sqM); Potassium 4.4 mmol/L (3.5-5.1); Sodium 136 mmol/L (137-145); Total Bilirubin 0.2 mg/dL (0.2-1.3); Total Protein 6.1 g/dL (6.3-8.2)
[2024-10-17 16:34] LABS: NT-Pro-B-Type Natriuretic Pept 2200 pg/mL
--- NOTE | 2024-10-17 16:53 | XR ---
EXAMINATION TYPE: XR chest 2V DATE OF EXAM: 10/17/2024 4:47 PM COMPARISON: Previous chest radiograph dated 10/12/2024. CLINICAL INDICATION: Female, 64 years old with history of difficulty breathing; [facility] TECHNIQUE: XR chest 2V Frontal and lateral views of the chest. FINDINGS: Cardiomegaly. Mild pulmonary vascular congestive changes and small effusions. No pneumothorax. No acute osseous abnormality. IMPRESSION: Cardiomegaly and mild pulmonary vascular congestive changes. [facility], , 10/17/2024 4:50 PM
[2024-10-17] MEDS: methylPREDNISolone SOD SUCCI 125 MG/2 ML VIAL IV STA (17:11)
[2024-10-17] MEDS ORDERED: NALOXONE 0.4 MG/ML 1 ML VIAL IV PRN (17:18)
[2024-10-17] MEDS: LORazepam 2 MG/ML INJ IV STA (17:31)
[2024-10-17] MEDS: ALBUTEROL HFA INHALER INHALATION STA (18:29)
[2024-10-17] MEDS: ALBUTEROL HFA INHALER INHALATION SCH (20:49)
[2024-10-17] MEDS: ALBUTEROL NEBULIZED 2.5 MG/3 ML INHALATION SCH (20:51)
[2024-10-17] MEDS ORDERED: IPRATROPIUM-ALBUTEROL 3 ML NEB INHALATION PRN (23:29)
[2024-10-17] MEDS ORDERED: DEXTROSE 50% SYRINGE 50 ML IVP PRN ×2 (23:34)
[2024-10-17] MEDS: QUEtiapine 25 MG TAB PO SCH (23:42)
[2024-10-17] MEDS: ACETAMINOPHEN TAB 325 MG TAB PO PRN (23:42)
[2024-10-17] MEDS: DEXAMETHASONE SOD PHOSPHATE 10 MG/ML 1 ML VIAL IVP STA (23:52)
--- NOTE | 2024-10-18 05:28 | P.CNPUL ---
History of Present Illness Consult date: 10/18/24 Requesting physician: Melanie Sevilla Reason for consult: COPD, other (COVID infection) Chief complaint: URI-like symptoms History of present illness: Patient is a 64-year-old female past medical history significant for schizophrenia, COPD, former tobacco dependence, atrial fibrillation, diabetes mellitus, obesity. Of note, patient recently admitted back 10/12/2024 with new onset A-fib. On 10/13/2024 underwent EDUARDA and successful cardioversion of A-fib to sinus mechanism with 200 J once. Patient is known to have moderate to severe aortic stenosis with subaortic membrane. On discharge, patient was continued on Eliquis. Yesterday afternoon, patient was brought in with her public guardian. Patient was noted to have a persistent mostly nonproductive cough, wheezing and dyspnea that started the day prior. Patient was also noted to be febrile, with a Tmax of 100.4 F. COVID PCR was positive. Probably contracted during her recent hospitalization. Chest x-ray showing cardiomegaly and pulmonary vascular congestion. No obvious focal consolidations. NT proBNP elevated 2200. CBC: WBC count 6.8, hemoglobin 9.8, hematocrit 30.7, platelets 251. CMP: Sodium 136, potassium 4.4, chloride 106, serum bicarb 21, BUN 19, creatinine 1.21, glucose 161. LFTs unremarkable. Troponin 0.02. NT proBNP as reported above. EKG: Sinus arrhythmia, rate 81 bpm, no obvious acute ischemic changes. Patient is admitted to the general medical floor. She is alert and oriented without signs of CO2 narcosis. Has been impulsive, and has a sitter at the bedside. She is on 2 L/min nasal cannula, not in any acute distress. She denies any home O2 use. She does have history of COPD and former tobacco dependence. She is unsure of her prescribed inhalers. Not currently willing to elaborate on any of her symptoms. She states that she had a "cold". Denies missing any doses of Eliquis. Denies chest pain, heart palpitations, orthopnea, lower extremity swelling. Current vitals: Temperature 99.8 F, heart rate 89 bpm, blood pressure 145/66 mmHg, respiratory rate 22, SpO2 93% on 2 L/min nasal cannula. Review of Systems Constitutional: Reports chills, Reports fever, Denies sweats, Denies weight gain, Denies weight loss Ears, nose, mouth and throat: Reports post-nasal drip, Reports sore throat, Denies nasal congestion, Denies sinus pain, Denies sinus pressure Cardiovascular: Reports dyspnea on exertion, Denies irregular heart beat, Denies leg edema, Denies orthopnea, Denies palpitations, Denies paroxysmal nocturnal dyspnea, Denies syncope Respiratory: Reports congestion, Reports cough, Reports dyspnea, Denies cough with sputum, Denies home oxygen, Denies pain on inspiration Gastrointestinal: Denies abdominal pain, Denies diarrhea, Denies nausea, Denies vomiting Genitourinary: Denies dysuria Musculoskeletal: Denies limitation of motion Integumentary: Denies rash Neurological: Denies seizures, Denies syncope Psychiatric: Reports anxiety, Reports depression, Reports irritability, Denies suicidal ideation Past Medical History Past Medical History: Atrial Fibrillation, Asthma, Diabetes Mellitus, Pneumonia Additional Past Medical History / Comment(s): Respiratory failure May 01 2023, paranoid schizophrenia History of Any Multi-Drug Resistant Organisms: None Reported Past Surgical History: No Surgical Hx Reported Additional Past Surgical History / Comment(s): no previous surgeries Past Anesthesia/Blood Transfusion Reactions: No Reported Reaction Past Psychological History: Schizophrenia Additional Psychological History / Comment(s): Paranoid schizophrenia Smoking Status: Former smoker Past Alcohol Use History: None Reported Additional Past Alcohol Use History / Comment(s): started smoking at 14 and quit 2 years ago. 1-2 ppd Past Drug Use History: None Reported - Past Family History Mother History Unknown: Yes Family Medical History: No Reported History Father History Unknown: Yes Medications and Allergies Home Medications Medication Instructions Recorded Confirmed Type Atorvastatin [Lipitor] 10 mg PO DAILY 10/12/24 10/17/24 History Cholecalciferol (Vitamin D3) 50 mcg PO DAILY 10/12/24 10/17/24 History [Vitamin D3 (50 Mcg = 2000 Iu)] Cinacalcet [Sensipar] 30 mg PO DIRECTED 10/12/24 10/17/24 History Divalproex ER [Depakote ER] 500 mg PO BID 10/12/24 10/17/24 History Famotidine [Pepcid] 20 mg PO BID 10/12/24 10/17/24 History Fenofibrate,Micronized 134 mg PO DAILY 10/12/24 10/17/24 History [Fenofibrate] Fluticasone/Umeclidin/Vilanter 1 puff INHALATION RT-DAILY 10/12/24 10/17/24 History [Trelejimmie Ellipta 100-62.5-25] Insulin Aspart (Niacinamide) See Protocol SQ AC-TID 10/12/24 10/17/24 History [Fiasp 100 Unit/ml Vial] Insulin Glargine,Hum.rec.anlog 50 unit SQ BID 10/12/24 10/17/24 History [Basaglar Kwikpen U-100] Ipratropium-Albuterol Nebulize 3 ml INHALATION RT-Q6H PRN 10/12/24 10/17/24 History [Duoneb 0.5 mg-3 mg/3 ml Soln] Montelukast [Singulair] 10 mg PO HS 10/12/24 10/17/24 History Tirzepatide [Mounjaro] 7.5 mg SQ Q7D 10/12/24 10/17/24 History cloZAPine [Clozaril] 50 mg PO DAILY 10/12/24 10/17/24 History cloZAPine [Clozaril] 100 mg PO TID 10/12/24 10/17/24 History metFORMIN HCL [Glucophage] 1,000 mg PO W/SUPPER 10/12/24 10/17/24 History metFORMIN HCL [Glucophage] 500 mg PO W/BRKFST 10/12/24 10/17/24 History traZODone HCL [Desyrel] 100 mg PO HS 10/12/24 10/17/24 History Apixaban [Eliquis] 5 mg PO BID #60 tab 10/14/24 10/17/24 Rx Ferrous Sulfate [Feosol] 325 mg PO DAILY #30 tab 10/14/24 10/17/24 Rx Metoprolol Tartrate [Lopressor] 25 mg PO TID #90 tab 10/14/24 10/17/24 Rx Allergies Allergy/AdvReac Type Severity Reaction Status Date / Time No Known Allergies Allergy Verified 10/17/24 15:30 Physical Exam Vitals: Vital Signs Temp Pulse Pulse Resp BP BP Pulse Ox 10/18/24 01:22 99.8 F H 89 22 145/66 93 L 10/17/24 20:00 100.4 F H 84 84 22 111/48 122/69 95 12/24/24 17:54 61 20 142/65 96 10/17/24 17:13 80 18 97/65 10/17/24 15:56 86 10/17/24 15:49 78 10/17/24 15:23 99.9 F H 84 22 107/56 92 L Intake and Output 10/17/24 10/17/24 10/18/24 14:59 22:59 06:59 Other: Weight 130.181 kg GENERAL EXAM: Alert, 64-year-old white female, obese,, comfortable in no apparent distress. pre k teacher is at the bedside HEAD: Normocephalic and atraumatic EYES: Normal reaction of pupils, equal size. NOSE: Clear with pink turbinates. THROAT: No erythema or exudates. NECK: No masses, no JVD. CHEST: No chest wall deformity. LUNGS: Equal air entry with bilateral rhonchi and faint expiratory wheezes heard anteriorly. On 2 L/min nasal cannula. No conversational dyspnea or accessory muscle use while at rest CVS: S1 and S2 normal with systolic murmur, regular rhythm. No other extra heart sounds ABDOMEN: No hepatosplenomegaly, active bowel sounds, no guarding or rigidity. SPINE: No scoliosis or deformity SKIN: No rashes CENTRAL NERVOUS SYSTEM: No focal deficits, tone is normal in all 4 extremities. EXTREMITIES: There is no peripheral edema, clubbing, or cyanosis. Peripheral pulses are intact. Results - Laboratory Findings CBC and BMP: 10/17/24 15:48 10/17/24 15:48 PT/INR, D-dimer PT 12.1 sec (10.0-12.5) 10/17/24 15:48 INR 1.1 (<1.2) 10/17/24 15:48 Abnormal lab findings: Abnormal Labs 10/17/24 10/17/24 10/17/24 15:48 15:48 15:48 RBC 3.34 L Hgb 9.8 L Hct 30.7 L Lymphocytes # 0.9 L Sodium 136 L Carbon Dioxide 21 L BUN 19 H Creatinine 1.21 H Glucose 161 H AST 37 H Total Protein 6.1 L SARS-CoV-2 (PCR) Detected A - Diagnostic Findings Chest x-ray: image reviewed Assessment and Plan Assessment: Acute hypoxemic respiratory failure, secondary to a combination of acute COPD exacerbation, acute COVID-19 infection, and likely exacerbation of diastolic congestive heart failure. Chest x-ray showing cardiomegaly and pulmonary v ascular congestion. No obvious focal consolidations. NT proBNP elevated 2200. Acute COVID-19 infection History of moderate to severe aortic stenosis with subaortic membrane History of atrial fibrillation status post EDUARDA and successful cardioversion on 10/13/2024, currently sinus arrhythmia Diabetes mellitus, insulin-dependent History of hyperlipidemia Hypertension Morbid obesity, with a BMI of 41.2 kg/m COPD Former tobacco dependence History of schizophrenia Plan: Patient's medications, labs, chest x-ray were reviewed Continue supplemental estimated oxygen saturation of 92% or greater Continue supportive care in the form of antitussives, Tylenol for fever Continue combination of bronchodilators, Symbicort inhaler, and IV Solu-Medrol Start patient on Lasix 40 mg daily Resume Eliquis GI prophylaxis: Pepcid Psychiatric meds to be resumed, there is a sitter at the bedside We will continue to follow I have personally seen and examined the patient, performed the documentation and the assessment and plan as written. Number of minutes spent on the visit:20 Time with Patient: Greater than 30
[2024-10-18 06:17] LABS: Glucose,Whole Blood 293 mg/dL (70-110)
[2024-10-18] MEDS: methylPREDNISolone SOD SUCCI 125 MG/2 ML VIAL IV SCH (06:20)
[2024-10-18] MEDS: INSULIN ASPART (NovoLOG) 100 UNIT/ML VIAL SQ SCH (06:21)
[2024-10-18] MEDS: APIXABAN 5 MG TAB PO SCH (08:20)
[2024-10-18] MEDS: FAMOTIDINE 20 MG TAB PO SCH (08:20)
[2024-10-18] MEDS: METOPROLOL TARTRATE 25 MG TAB PO SCH (08:20)
[2024-10-18] MEDS: FUROSEMIDE 10 MG/ML 4 ML VIAL IV SCH (08:21)
[2024-10-18] MEDS: IPRATROPIUM-ALBUTEROL 3 ML NEB INHALATION SCH (08:23)
[2024-10-18] MEDS ORDERED: ALBUTEROL HFA INHALER INHALATION PRN (08:24)
[2024-10-18 08:25] LABS: Basophils % (A) 1 %; Eosinophils % (A) 0 %; HCT 34.9 % (34.0-46.0); HGB 10.6 gm/dL (11.4-16.0); Hypochromasia Marked; Lymphocytes # (A) 0.6 k/uL (1.0-4.8); Lymphocytes % (A) 13 %; MCH 28.6 pg (25.0-35.0); MCHC 30.5 g/dL (31.0-37.0); MCV 93.7 fL (80.0-100.0); Mean Platelet Volume 7.9; Monocytes # (A) 0.2 k/uL (0-1.0); Monocytes % (A) 4 %; Neutrophils # (A) 4.1 k/uL (1.3-7.7); Neutrophils % (A) 81 %; Platelet Count 266 k/uL (150-450); RBC 3.72 m/uL (3.80-5.40); RDW 14.9 % (11.5-15.5)
[2024-10-18] MEDS: ALBUTEROL HFA INHALER INHALATION SCH (08:30)
[2024-10-18] MEDS: SYMBICORT 160-4.5 MCG INHALER INHALATION SCH (08:30)
[2024-10-18 08:43] LABS: ALT 28 U/L (4-34); AST 29 U/L (14-36); African American GFR (CKD) 55 (>60 ml/min/1.73 sqM); Albumin 3.8 g/dL (3.5-5.0); Albumin/Globulin Ratio 1.5; Alkaline Phosphatase 68 U/L (38-126); Anion Gap 11 mmol/L; Blood Urea Nitrogen 21 mg/dL (7-17); C Reactive Protein 3.2 mg/dL (<1.0); Calcium 8.8 mg/dL (8.4-10.2); Carbon Dioxide 21 mmol/L (22-30); Chloride 108 mmol/L (98-107); Globulin 2.5 g/dL; Glucose 294 mg/dL (74-99); LDH 206 U/L (120-246); Non-African American GFR(CKD) 48 (>60 ml/min/1.73 sqM); Potassium 4.8 mmol/L (3.5-5.1); Sodium 140 mmol/L (137-145); Total Bilirubin 0.2 mg/dL (0.2-1.3); Total Protein 6.3 g/dL (6.3-8.2)
--- NOTE | 2024-10-18 11:41 | P.HPIM ---
History of Present Illness This is a pleasant 64 years old female with past medical history of multiple medical problems as below. Patient presents because of worsening dyspnea for several days associated with coughing. No significant chest pain No other GI or symptoms like dysuria or urgency or diarrhea. No headache dizziness weakness or numbness. Patient also denies smoking alcohol or illicit drugs She is not on oxygen at home She confirms she takes Eliquis at home for A-fib which is resumed Patient also was agitated overnight and Seroquel and Ativan 1 mg was provided, currently she is sleeping and calm but there is sitter at bedside for safety Patient has low-grade fever of 100.4 on admission, mildly tachypneic and she is saturating 95% on 2 L, currently this is not worse looks better. BMP and liver enzymes are unremarkable except for creatinine slightly elevated at 1.2. Hemoglobin 9.8 Rest of CBC, BMP and liver enzymes and INR were unremarkable Troponin slightly elevated 0.024 which is still within the reference range proBNP is elevated to 200 Chest x-ray showing cardiomegaly with pulmonary vascular congestion, I reviewed the chest x-ray by myself and agree EKG showing sinus rhythm at 81 proBNP is elevated to 200 Test for COVID came back positive well for influenza came back negative about Valproic acid level is 32.7 Review of Systems Review of systems CONSTITUTIONAL: No fever, no malaise, no fatigue. HEENT: No recent visual problems or hearing problems. Denied any sore throat. CARDIOVASCULAR: No orthopnea, PND, no palpitations, no syncope. PULMONARY: No chest wall tenderness, no hemoptysis. GASTROINTESTINAL: No diarrhea, no nausea, no vomiting, no abdominal pain. Normoactive bowel sounds. NEUROLOGICAL: No headaches, no weakness, no numbness. HEMATOLOGICAL: Denies any bleeding or petechiae. GENITOURINARY: Denies any burning micturition, frequency, or urgency. MUSCULOSKELETAL/RHEUMATOLOGICAL: Denies any joint pain, swelling, or any muscle pain. ENDOCRINE: Denies any polyuria or polydipsia. Past Medical History Past Medical History: Atrial Fibrillation, Asthma, Diabetes Mellitus, Pneumonia Additional Past Medical History / Comment(s): Respiratory failure May 01 2023, paranoid schizophrenia History of Any Multi-Drug Resistant Organisms: None Reported Past Surgical History: No Surgical Hx Reported Additional Past Surgical History / Comment(s): no previous surgeries Past Anesthesia/Blood Transfusion Reactions: No Reported Reaction Past Psychological History: Schizophrenia Additional Psychological History / Comment(s): Paranoid schizophrenia Smoking Status: Former smoker Past Alcohol Use History: None Reported Additional Past Alcohol Use History / Comment(s): started smoking at 14 and quit 2 years ago. 1-2 ppd Past Drug Use History: None Reported - Past Family History Mother History Unknown: Yes Family Medical History: No Reported History Father History Unknown: Yes Medications and Allergies Home Medications Medication Instructions Recorded Confirmed Type Atorvastatin [Lipitor] 10 mg PO DAILY 10/12/24 10/17/24 History Cholecalciferol (Vitamin D3) 50 mcg PO DAILY 10/12/24 10/17/24 History [Vitamin D3 (50 Mcg = 2000 Iu)] Cinacalcet [Sensipar] 30 mg PO DIRECTED 10/12/24 10/17/24 History Divalproex ER [Depakote ER] 500 mg PO BID 10/12/24 10/17/24 History Famotidine [Pepcid] 20 mg PO BID 10/12/24 10/17/24 History Fenofibrate,Micronized 134 mg PO DAILY 10/12/24 10/17/24 History [Fenofibrate] Fluticasone/Umeclidin/Vilanter 1 puff INHALATION RT-DAILY 10/12/24 10/17/24 History [Trelejimmie Ellipta 100-62.5-25] Insulin Aspart (Niacinamide) See Protocol SQ AC-TID 10/12/24 10/17/24 History [Fiasp 100 Unit/ml Vial] Insulin Glargine,Hum.rec.anlog 50 unit SQ BID 10/12/24 10/17/24 History [Basaglar Kwikpen U-100] Ipratropium-Albuterol Nebulize 3 ml INHALATION RT-Q6H PRN 10/12/24 10/17/24 History [Duoneb 0.5 mg-3 mg/3 ml Soln] Montelukast [Singulair] 10 mg PO HS 10/12/24 10/17/24 History Tirzepatide [Mounjaro] 7.5 mg SQ Q7D 10/12/24 10/17/24 History cloZAPine [Clozaril] 50 mg PO DAILY 10/12/24 10/17/24 History cloZAPine [Clozaril] 100 mg PO TID 10/12/24 10/17/24 History metFORMIN HCL [Glucophage] 1,000 mg PO W/SUPPER 10/12/24 10/17/24 History metFORMIN HCL [Glucophage] 500 mg PO W/BRKFST 10/12/24 10/17/24 History traZODone HCL [Desyrel] 100 mg PO HS 10/12/24 10/17/24 History Apixaban [Eliquis] 5 mg PO BID #60 tab 10/14/24 10/17/24 Rx Ferrous Sulfate [Feosol] 325 mg PO DAILY #30 tab 10/14/24 10/17/24 Rx Metoprolol Tartrate [Lopressor] 25 mg PO TID #90 tab 10/14/24 10/17/24 Rx Allergies Allergy/AdvReac Type Severity Reaction Status Date / Time No Known Allergies Allergy Verified 10/17/24 15:30 Physical Exam Vitals: Vital Signs Temp Pulse Pulse Resp BP BP Pulse Ox 10/18/24 07:00 98.2 F 83 16 145/63 93 L 10/18/24 01:22 99.8 F H 89 22 145/66 93 L 10/17/24 20:00 100.4 F H 84 84 22 111/48 122/69 95 10/17/24 17:54 61 20 142/65 96 10/17/24 17:13 80 18 97/65 10/17/24 15:56 86 10/17/24 15:49 78 10/17/24 15:23 99.9 F H 84 22 107/56 92 L Intake and Output 10/17/24 10/18/24 10/18/24 22:59 06:59 14:59 Intake Total 480 120 Balance 480 120 Intake: Oral 480 120 Other: # Voids 3 Weight 130.181 kg -GENERAL: The patient is alert and oriented x3, drowsy not in any acute dis tress. Well developed, well nourished. HEENT: Pupils are round and equally reacting to light. EOMI. No scleral icterus. No conjunctival pallor. Normocephalic, atraumatic. No pharyngeal erythema. No t hyromegaly. CARDIOVASCULAR: S1 and S2 present. No murmurs, rubs, or gallops. -PULMONARY: Chest is clear to auscultation, n bilateral expiratory wheezing , no crackles. ABDOMEN: Soft, nontender, nondistended, normoactive bowel sounds. No palpable organomegaly. MUSCULOSKELETAL: No joint swelling or deformity. EXTREMITIES: No cyanosis, clubbing, or pedal edema. NEUROLOGICAL: Gross neurological examination did not reveal any focal deficits. SKIN: No rashes. no petechiae. Results CBC & Chem 7: 10/18/24 08:07 10/18/24 08:07 Labs: Abnormal Lab Results - Last 24 Hours (Table) 10/17/24 10/17/24 10/17/24 Range/Units 15:48 15:48 15:48 RBC 3.34 L (3.80-5.40) m/uL Hgb 9.8 L (11.4-16.0) gm/dL Hct 30.7 L (34.0-46.0) % MCHC (31.0-37.0) g/dL Lymphocytes # 0.9 L (1.0-4.8) k/uL Sodium 136 L (137-145) mmol/L Chloride (98-107) mmol/L Carbon Dioxide 21 L (22-30) mmol/L BUN 19 H (7-17) mg/dL Creatinine 1.21 H (0.52-1.04) mg/dL Glucose 161 H (74-99) mg/dL POC Glucose (mg/dL) (70-110) mg/dL AST 37 H (14-36) U/L C-Reactive Protein (<1.0) mg/dL Total Protein 6.1 L (6.3-8.2) g/dL SARS-CoV-2 (PCR) Detected A (Not Detectd) 10/18/24 10/18/24 10/18/24 Range/Units 06:15 08:07 08:07 RBC 3.72 L (3.80-5.40) m/uL Hgb 10.6 L (11.4-16.0) gm/dL Hct (34.0-46.0) % MCHC 30.5 L (31.0-37.0) g/dL Lymphocytes # 0.6 L (1.0-4.8) k/uL Sodium (137-145) mmol/L Chloride 108 H (98-107) mmol/L Carbon Dioxide 21 L (22-30) mmol/L BUN 21 H (7-17) mg/dL Creatinine 1.20 H (0.52-1.04) mg/dL Glucose 294 H (74-99) mg/dL POC Glucose (mg/dL) 293 H (70-110) mg/dL AST (14-36) U/L C-Reactive Protein 3.2 H (<1.0) mg/dL Total Protein (6.3-8.2) g/dL SARS-CoV-2 (PCR) (Not Detectd) Thrombosis Risk Factor Assmnt - Choose All That Apply Any of the Below Risk Factors Present?: Yes Each Factor Represents 1 point: Abnormal pulmonary function (COPD) Other Risk Factors: Yes Each Risk Factor Represents 2 Points: Age 61-74 years Other congenital or acquired thrombophilia - If yes, enter type in comment: No Thrombosis Risk Factor Assessment Total Risk Factor Score: 3 Thrombosis Risk Factor Assessment Level: Moderate Risk Assessment and Plan Assessment: Acute COPD exacerbation COVID infection without pneumonia Acute CHF with unknown ejection fraction recent A-fib with RVR on Eliquis Chronic kidney disease stage III Paranoid schizophrenia Diabetes mellitus Hypertension History of asthma Plan: Continue with IV Solu-Medrol Continue with psych medication Continued with Eliquis. Also patient on IV Lasix 40 mg daily Pulmonary team consult Labs and medication were reviewed.. Continue same treatment. Continue with symptomatic treatment. Resume home medication. Monitor labs and vitals. DVT and GI prophylaxis. Further recommendations as per clinical course of the patient DVT prophylaxis: Eliquis GI Prophylaxis: Pepcid Prognosis is guarded
[2024-10-18] MEDS: TIOTROPIUM 2.5 MCG INHALER INHALATION SCH (11:42)
[2024-10-18 12:20] LABS: Glucose,Whole Blood 388 mg/dL (70-110)
[2024-10-18 17:17] LABS: Glucose,Whole Blood 413 mg/dL (70-110)
[2024-10-18 21:02] LABS: Glucose,Whole Blood 426 mg/dL (70-110)
[2024-10-18] MEDS: guaiFENesin SYRUP 100MG/5ML 200 MG/10 ML CUP PO PRN (22:23)
[2024-10-19 06:35] LABS: Glucose,Whole Blood 386 mg/dL (70-110)
[2024-10-19 11:57] LABS: Glucose,Whole Blood 454 mg/dL (70-110)
--- NOTE | 2024-10-19 12:26 | P.PN ---
Subjective Progress Note Date: 10/19/24 Patient is a 64-year-old female past medical history significant for schizophrenia, COPD, former tobacco dependence, atrial fibrillation, diabetes mellitus, obesity. Of note, patient recently admitted back 10/12/2024 with new onset A-fib. On 10/13/2024 underwent EDUARDA and successful cardioversion of A-fib to sinus mechanism with 200 J once. Patient is known to have moderate to severe aortic stenosis with subaortic membrane. On discharge, patient was continued on Eliquis. Yesterday afternoon, patient was brought in with her public guardian. Patient was noted to have a persistent mostly nonproductive cough, wheezing and dyspnea that started the day prior. Patient was also noted to be febrile, with a Tmax of 100.4 F. COVID PCR was positive. Probably contracted during her recent hospitalization. Chest x-ray showing cardiomegaly and pulmonary vascular congestion. No obvious focal consolidations. NT proBNP elevated 2200. CBC: WBC count 6.8, hemoglobin 9.8, hematocrit 30.7, platelets 251. CMP: Sodium 136, potassium 4.4, chloride 106, serum bicarb 21, BUN 19, creatinine 1.21, glucose 161. LFTs unremarkable. Troponin 0.02. NT proBNP as reported above. EKG: Sinus arrhythmia, rate 81 bpm, no obvious acute ischemic changes. Patient is admitted to the general medical floor. She is alert and oriented without signs of CO2 narcosis. Has been impulsive, and has a sitter at the bedside. She is on 2 L/min nasal cannula, not in any acute distress. She denies any home O2 use. She does have history of COPD and former tobacco dependence. She is unsure of her prescribed inhalers. Not currently willing to elaborate on any of her symptoms. She states that she had a "cold". Denies missing any doses of Eliquis. Denies chest pain, heart palpitations, orthopnea, lower extremity swelling. Current vitals: Temperature 99.8 F, heart rate 89 bpm, blood pressure 145/66 mmHg, respiratory rate 22, SpO2 93% on 2 L/min nasal cannula. The patient is seen today October 19, 2024 in follow-up on the regular medical floor. She is currently sitting up in a chair. Awake and alert in no acute distress. Maintaining good O2 saturations in the 90s on 3 L/min per nasal cannula. She is feeling a bit better today compared to yesterday. Glucose 454. She remains on Symbicort, Spiriva, albuterol. Remains on IV Solu-Medrol. Anticoagulated with Eliquis. She remains on IV diuretics. No accurate DANIEL. Objective - Vital Signs Vital signs: Vital Signs Temp 97.5 F L 10/19/24 07:10 Pulse 61 10/19/24 07:10 Resp 18 10/19/24 10:22 BP 132/77 10/19/24 07:10 Pulse Ox 95 10/19/24 07:10 FiO2 Intake & Output 10/18/24 10/19/24 10/19/24 18:59 06:59 18:59 Intake Total 320 Balance 320 Intake: Oral 320 Other: # Voids 3 3 # Bowel Movements 2 - Exam GENERAL EXAM: Alert, 64-year-old female, obese, on 2 L nasal cannula, sitting up in a chair, comfortable in no apparent distress. HEAD: Normocephalic and atraumatic EYES: Normal reaction of pupils, equal size. NOSE: Clear with pink turbinates. THROAT: No erythema or exudates. NECK: No masses, no JVD. CHEST: No chest wall deformity. LUNGS: Equal air entry with bilateral rhonchi and faint expiratory wheezes heard anteriorly. CVS: S1 and S2 normal with systolic murmur, regular rhythm. No other extra heart sounds ABDOMEN: No hepatosplenomegaly, active bowel sounds, no guarding or rigidity. SPINE: No scoliosis or deformity SKIN: No rashes CENTRAL NERVOUS SYSTEM: No focal deficits, tone is normal in all 4 extremities. EXTREMITIES: There is no peripheral edema, clubbing, or cyanosis. Peripheral pulses are intact. - Labs CBC & Chem 7: 10/18/24 08:07 10/18/24 08:07 Labs: Abnormal Lab Results - Last 24 Hours (Table) 10/18/24 10/18/24 10/18/24 Range/Units 08:07 12:18 17:16 POC Glucose (mg/dL) 388 H 413 H (70-110) mg/dL Hemoglobin A1c 8.8 H (<=6.0) % 10/18/24 10/19/24 10/19/24 Range/Units 20:59 06:33 11:56 POC Glucose (mg/dL) 426 H 386 H 454 H (70-110) mg/dL Hemoglobin A1c (<=6.0) % Assessment and Plan Assessment: Acute hypoxemic respiratory failure, secondary to a combination of acute COPD exacerbation, acute COVID-19 infection, and likely exacerbation of diastolic congestive heart failure. Chest x-ray showing cardiomegaly and pulmonary vascular congestion. No obvious focal consolidations. NT proBNP elevated 2200. 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 We will continue to follow I have personally seen and examined the patient, performed the documentation and the assessment and plan as written. Number of minutes spent on the visit: 10 Dictation was produced using [employer] dictation software. Please excuse any grammatical, word or spelling errors.
--- NOTE | 2024-10-19 12:52 | P.PN ---
Subjective This is a pleasant 64 years old female with past medical history of multiple medical problems as below. Patient presents because of worsening dyspnea for several days associated with coughing. No significant chest pain No other GI or symptoms like dysuria or urgency or diarrhea. No headache dizziness weakness or numbness. Patient also denies smoking alcohol or illicit drugs She is not on oxygen at home She confirms she takes Eliquis at home for A-fib which is resumed Patient also was agitated overnight and Seroquel and Ativan 1 mg was provided, currently she is sleeping and calm but there is sitter at bedside for safety Patient has low-grade fever of 100.4 on admission, mildly tachypneic and she is saturating 95% on 2 L, currently this is not worse looks better. BMP and liver enzymes are unremarkable except for creatinine slightly elevated at 1.2. Hemoglobin 9.8 Rest of CBC, BMP and liver enzymes and INR were unremarkable Troponin slightly elevated 0.024 which is still within the reference range proBNP is elevated to 200 Chest x-ray showing cardiomegaly with pulmonary vascular congestion, I reviewed the chest x-ray by myself and agree EKG showing sinus rhythm at 81 proBNP is elevated to 200 Test for COVID came back positive well for influenza came back negative about Valproic acid level is 32.7 10/19 Patient reports improvement in her breathing No chest pain She has good appetite and she has good bowel movement She is sitting in chair not in distress For fever on admission was subsided. Currently she is not on antibiotics because we think her fever is related to her viral infection with COVID Patient remains on IV Solu-Medrol but dose lowered today to 40 mg and IV Lasix 40 mg once daily. Also she is on Eliquis continue since home for her history of A-fib Repeat chest x-ray in the morning Review of systems CONSTITUTIONAL: No fever, no malaise, no fatigue. HEENT: No recent visual problems or hearing problems. Denied any sore throat. CARDIOVASCULAR: No orthopnea, PND, no palpitations, no syncope. GASTROINTESTINAL: No diarrhea, no nausea, no vomiting, no abdominal pain. Normoactive bowel sounds. NEUROLOGICAL: No headaches, no weakness, no numbness. Active Medications Generic Name Dose Route Start Last Admin Trade Name Freq PRN Reason Stop Dose Admin Acetaminophen 650 mg 10/17/24 23:29 10/17/24 23:42 Acetaminophen Tab 325 Mg Tab PO 650 mg Q6HR PRN Administration Fever and/ or Pain Albuterol Sulfate 2 puff 10/18/24 08:00 10/19/24 12:30 Albuterol Hfa Inhaler INHALATION 2 puff RT-QID DEMETRIO Administration Albuterol Sulfate 2 puff 10/18/24 08:24 Albuterol Hfa Inhaler INHALATION RT-QID PRN Shortness Of Breath Apixaban 5 mg 10/18/24 09:00 10/19/24 07:44 Apixaban 5 Mg Tab PO 5 mg BID DEMETRIO Administration Protocol Benzocaine/Menthol 1 each 10/17/24 23:36 Benzocaine/Menthol Lozeng 1 Each Lozenge MUCOUS MEM Q4HR PRN Sore Throat Budesonide/Formoterol Fumarate 2 puff 10/18/24 08:00 10/19/24 08:47 Symbicort 160-4.5 Mcg Inhaler INHALATION 2 puff RT-BID DEMETRIO Administration Dextrose/Water 25 ml 10/17/24 23:34 Dextrose 50% Syringe 50 Ml IVP PER PROTOCOL PRN Hypoglycemia Protocol Dextrose/Water 50 ml 10/17/24 23:34 Dextrose 50% Syringe 50 Ml IVP PER PROTOCOL PRN Hypoglycemia Protocol Famotidine 20 mg 10/18/24 09:00 10/19/24 07:44 Famotidine 20 Mg Tab PO 20 mg DAILY DEMETRIO Administration Furosemide 40 mg 10/18/24 09:00 10/19/24 07:45 Furosemide 10 Mg/Ml 4 Ml Vial IV 40 mg DAILY DEMETRIO Administration Guaifenesin 200 mg 10/17/24 23:36 10/18/24 22:23 Guaifenesin Syrup 100mg/5ml 200 Mg/10 Ml Cup PO 200 mg Q6HR PRN Administration Cough Insulin Aspart 0 unit 10/18/24 07:30 10/19/24 12:47 Insulin Aspart (Novolog) 100 Unit/Ml Vial SQ 12 unit ACHS DEMETRIO Administration Protocol Methylprednisolone Sodium Succinate 40 mg 10/19/24 16:00 Methylprednisolone Sod Succi 40 Mg/Ml 1 Ml Vial IV Q8HR [facility] Metoprolol Tartrate 25 mg 10/18/24 09:00 10/19/24 07:44 Metoprolol Tartrate 25 Mg Tab PO 25 mg TID DEMETRIO Administration Naloxone HCl 0.2 mg 10/17/24 17:18 Naloxone 0.4 Mg/Ml 1 Ml Vial IV Q2M PRN Opioid Reversal Quetiapine Fumarate 25 mg 10/17/24 23:45 10/18/24 22:24 Quetiapine 25 Mg Tab PO 25 mg HS DEMETRIO Administration Senna 8.6 mg 10/17/24 23:36 Sennosides 8.6 Mg Tab PO BID PRN Constipation Tiotropium [place] 2 puff 10/18/24 09:00 10/19/24 08:47 Tiotropium 2.5 Mcg Inhaler INHALATION 2 puff RT-DAILY DEMETRIO Administration Objective - Vital Signs Vital signs: Vital Signs Temp 97.5 F L 10/19/24 07:10 Pulse 61 10/19/24 07:10 Resp 18 10/19/24 10:22 BP 132/77 10/19/24 07:10 Pulse Ox 95 10/19/24 07:10 FiO2 Intake & Output 10/18/24 10/19/24 10/19/24 18:59 06:59 18:59 Intake Total 320 Balance 320 Intake: Oral 320 Other: # Voids 3 3 # Bowel Movements 2 - Exam GENERAL: The patient is alert and oriented x3, not in any acute distress. Well developed, well nourished. HEENT: Pupils are round and equally reacting to light. EOMI. No scleral icterus. No conjunctival pallor. Normocephalic, atraumatic. No pharyngeal erythema. No thyromegaly. CARDIOVASCULAR: S1 and S2 present. No murmurs, rubs, or gallops. -PULMONARY: Chest is clear to auscultation, no wheezing , no crackles. Mild bilateral crepitation, improvement ABDOMEN: Soft, nontender, nondistended, normoactive bowel sounds. No palpable organomegaly. MUSCULOSKELETAL: No joint swelling or deformity. EXTREMITIES: No cyanosis, clubbing, or pedal edema. NEUROLOGICAL: Gross neurological examination did not reveal any focal deficits. SKIN: No rashes. no petechiae. - Labs CBC & Chem 7: 10/18/24 08:07 10/18/24 08:07 Labs: Abnormal Lab Results - Last 24 Hours (Table) 10/18/24 10/18/24 10/18/24 Range/Units 08:07 17:16 20:59 POC Glucose (mg/dL) 413 H 426 H (70-110) mg/dL Hemoglobin A1c 8.8 H (<=6.0) % 10/19/24 10/19/24 Range/Units 06:33 11:56 POC Glucose (mg/dL) 386 H 454 H (70-110) mg/dL Hemoglobin A1c (<=6.0) % Assessment and Plan Assessment: Acute COPD exacerbation COVID infection without pneumonia Acute CHF with unknown ejection fraction recent A-fib with RVR on Eliquis Chronic kidney disease stage III Paranoid schizophrenia Diabetes mellitus Hypertension History of asthma Plan: Continue with IV Solu-Medrol Continue with psych medication Continued with Eliquis. Also patient on IV Lasix 40 mg daily Pulmonary team consult Labs and medication were reviewed.. Continue same treatment. Continue with symptomatic treatment. Resume home medication. Monitor labs and vitals. DVT and GI prophylaxis. Further recommendations as per clinical course of the patient DVT prophylaxis: Eliquis GI Prophylaxis: Pepcid Prognosis is guarded
[2024-10-19] MEDS ORDERED: INSULIN DETEMIR (LEVEMIR) 100 UNIT/ML SYR SQ SCH (13:00)
[2024-10-19] MEDS: INSULIN DETEMIR (LEVEMIR) 100 UNIT/ML SYR SQ SCH (14:09)
[2024-10-19] MEDS: SENNOSIDES 8.6 MG TAB PO PRN (15:23)
[2024-10-19] MEDS ORDERED: methylPREDNISolone SOD SUCCI 40 MG/ML 1 ML VIAL IV SCH (16:00)
[2024-10-19 16:55] LABS: Glucose,Whole Blood 447 mg/dL (70-110)
[2024-10-19] MEDS: INSULIN ASPART (NovoLOG) 100 UNIT/ML VIAL SQ ONE ×2 (17:17→21:53)
[2024-10-19 19:08] LABS: Glucose,Whole Blood 441 mg/dL (70-110)
[2024-10-19] MEDS: methylPREDNISolone SOD SUCCI 40 MG/ML 1 ML VIAL IV SCH (21:30)
[2024-10-20] MEDS: BENZOCAINE/MENTHOL LOZENG 1 EACH LOZENGE MUCOUS MEM PRN (00:08)
[2024-10-20 01:57] LABS: Glucose,Whole Blood 283 mg/dL (70-110)
[2024-10-20 06:08] LABS: Glucose,Whole Blood 265 mg/dL (70-110)
[2024-10-20 08:15] LABS: Basophils % (A) 0 %; Eosinophils % (A) 0 %; HCT 34.6 % (34.0-46.0); Hypochromasia Slight; Lymphocytes # (A) 0.8 k/uL (1.0-4.8); Lymphocytes % (A) 13 %; MCH 29.1 pg (25.0-35.0); MCHC 31.7 g/dL (31.0-37.0); MCV 91.7 fL (80.0-100.0); Mean Platelet Volume 7.8; Monocytes # (A) 0.4 k/uL (0-1.0); Monocytes % (A) 6 %; Neutrophils # (A) 4.8 k/uL (1.3-7.7); Neutrophils % (A) 80 %; Platelet Count 283 k/uL (150-450); RBC 3.77 m/uL (3.80-5.40); RDW 14.6 % (11.5-15.5)
[2024-10-20 08:27] LABS: African American GFR (CKD) 46 (>60 ml/min/1.73 sqM); Anion Gap 9 mmol/L; Blood Urea Nitrogen 42 mg/dL (7-17); Calcium 9.1 mg/dL (8.4-10.2); Carbon Dioxide 29 mmol/L (22-30); Chloride 99 mmol/L (98-107); Glucose 249 mg/dL (74-99); Non-African American GFR(CKD) 40 (>60 ml/min/1.73 sqM); Potassium 5.3 mmol/L (3.5-5.1); Sodium 137 mmol/L (137-145)
--- NOTE | 2024-10-20 10:21 | XR ---
EXAMINATION TYPE: XR chest 1V portable DATE OF EXAM: 10/20/2024 6:48 AM COMPARISON: 10/17/2024 CLINICAL INDICATION: Female, 64 years old with history of CoVID, , FINDINGS: Heart mildly enlarged. Mild increased interstitial density. Mild patchy left basilar opacity. Previou s exam was underpenetrated. No pleural effusion. Prominent degenerative changes left shoulder joint. IMPRESSION: 1. Mild cardiomegaly. Mild interstitial density could reflect mild pulmonary vascular congestion. Cli nically correlate. 2. Interstitial infiltrate related to COVID would be an alternative consideration. Some additional pa tchy left basilar opacity is noted. [facility], , 10/20/2024 10:19 AM
[2024-10-20 11:32] LABS: Glucose,Whole Blood 319 mg/dL (70-110)
--- NOTE | 2024-10-20 11:39 | P.PN ---
Subjective This is a pleasant 64 years old female with past medical history of multiple medical problems as below. Patient presents because of worsening dyspnea for several days associated with coughing. No significant chest pain No other GI or symptoms like dysuria or urgency or diarrhea. No headache dizziness weakness or numbness. Patient also denies smoking alcohol or illicit drugs She is not on oxygen at home She confirms she takes Eliquis at home for A-fib which is resumed Patient also was agitated overnight and Seroquel and Ativan 1 mg was provided, currently she is sleeping and calm but there is sitter at bedside for safety Patient has low-grade fever of 100.4 on admission, mildly tachypneic and she is saturating 95% on 2 L, currently this is not worse looks better. BMP and liver enzymes are unremarkable except for creatinine slightly elevated at 1.2. Hemoglobin 9.8 Rest of CBC, BMP and liver enzymes and INR were unremarkable Troponin slightly elevated 0.024 which is still within the reference range proBNP is elevated to 200 Chest x-ray showing cardiomegaly with pulmonary vascular congestion, I reviewed the chest x-ray by myself and agree EKG showing sinus rhythm at 81 proBNP is elevated to 200 Test for COVID came back positive well for influenza came back negative about Valproic acid level is 32.7 10/19 Patient reports improvement in her breathing No chest pain She has good appetite and she has good bowel movement She is sitting in chair not in distress For fever on admission was subsided. Currently she is not on antibiotics because we think her fever is related to her viral infection with COVID Patient remains on IV Solu-Medrol but dose lowered today to 40 mg and IV Lasix 40 mg once daily. Also she is on Eliquis continue since home for her history of A-fib Repeat chest x-ray in the morning 10/20 Patient breathing improving slowly and gradually She still have cough controlled with cough medicine She had chest pain earlier improved with aspirin, currently she is chest pain- free. She has no diarrhea and she has good appetite Creatinine went up little bit 1.4 and potassium went up 4.8 up to 5.3. Patient looks little dehydrated. We will hold her IV Lasix 40 mg daily for now. She remains on home dose of Eliquis and IV Solu-Medrol 40 mg Objective - Vital Signs Vital signs: Vital Signs Temp 97.5 F L 10/20/24 08:00 Pulse 55 L 10/20/24 08:00 Resp 17 10/20/24 08:00 BP 132/75 10/20/24 08:00 Pulse Ox 96 10/20/24 08:00 FiO2 Intake & Output 10/19/24 10/20/24 10/20/24 18:59 06:59 18:59 Intake Total 600 Balance 600 Intake: Oral 600 Other: # Voids 3 2 - Exam GENERAL: The patient is alert and oriented x3, not in any acute distress. Well d eveloped, well nourished. HEENT: Pupils are round and equally reacting to light. EOMI. No scleral icterus. No conjunctival pallor. Normocephalic, atraumatic. No pharyngeal erythema. No thyromegaly. CARDIOVASCULAR: S1 and S2 present. No murmurs, rubs, or gallops. -PULMONARY: Chest is clear to auscultation, no wheezing , no crackles. Mild bilateral crepitation, improvement ABDOMEN: Soft, nontender, nondistended, normoactive bowel sounds. No palpable organomegaly. MUSCULOSKELETAL: No joint swelling or deformity. EXTREMITIES: No cyanosis, clubbing, or pedal edema. NEUROLOGICAL: Gross neurological examination did not reveal any focal deficits. SKIN: No rashes. no petechiae. - Labs CBC & Chem 7: 10/20/24 06:41 10/20/24 06:41 Labs: Abnormal Lab Results - Last 24 Hours (Table) 10/19/24 10/19/24 10/19/24 Range/Units 11:56 16:54 19:07 RBC (3.80-5.40) m/uL Hgb (11.4-16.0) gm/dL Lymphocytes # (1.0-4.8) k/uL Potassium (3.5-5.1) mmol/L BUN (7-17) mg/dL Creatinine (0.52-1.04) mg/dL Glucose (74-99) mg/dL POC Glucose (mg/dL) 454 H 447 H 441 H (70-110) mg/dL 10/20/24 10/20/24 10/20/24 Range/Units 01:54 06:07 06:41 RBC 3.77 L (3.80-5.40) m/uL Hgb 11.0 L (11.4-16.0) gm/dL Lymphocytes # 0.8 L (1.0-4.8) k/uL Potassium (3.5-5.1) mmol/L BUN (7-17) mg/dL Creatinine (0.52-1.04) mg/dL Glucose (74-99) mg/dL POC Glucose (mg/dL) 283 H 265 H (70-110) mg/dL 10/20/24 10/20/24 Range/Units 06:41 11:31 RBC (3.80-5.40) m/uL Hgb (11.4-16.0) gm/dL Lymphocytes # (1.0-4.8) k/uL Potassium 5.3 H (3.5-5.1) mmol/L BUN 42 H (7-17) mg/dL Creatinine 1.40 H (0.52-1.04) mg/dL Glucose 249 H (74-99) mg/dL POC Glucose (mg/dL) 319 H (70-110) mg/dL Assessment and Plan Assessment: Acute COPD exacerbation COVID infection without pneumonia Acute CHF with unknown ejection fraction recent A-fib with RVR on Eliquis Mild acute kidney injury with mild hyperkalemia on 10/20 Chronic kidney disease stage III Paranoid schizophrenia Diabetes mellitus Hypertension History of asthma Plan: Continue with IV Solu-Medrol Continue with psych medication Continued with Eliquis. hold IV Lasix 40 mg daily. Hold monitor creatinine and potassium level Pulmonary team consult Labs and medication were reviewed.. Continue same treatment. Continue with symptomatic treatment. Resume home medication. Monitor labs and vitals. DVT and GI prophylaxis. Further recommendations as per clinical course of the patient DVT prophylaxis: Eliquis GI Prophylaxis: Pepcid Prognosis is guarded
--- NOTE | 2024-10-20 13:19 | P.PN ---
Subjective Progress Note Date: 10/20/24 Patient is a 64-year-old female past medical history significant for schizophrenia, COPD, former tobacco dependence, atrial fibrillation, diabetes mellitus, obesity. Of note, patient recently admitted back 10/12/2024 with new onset A-fib. On 10/13/2024 underwent EDUARDA and successful cardioversion of A-fib to sinus mechanism with 200 J once. Patient is known to have moderate to severe aortic stenosis with subaortic membrane. On discharge, patient was continued on Eliquis. Yesterday afternoon, patient was brought in with her public guardian. Patient was noted to have a persistent mostly nonproductive cough, wheezing and dyspnea that started the day prior. Patient was also noted to be febrile, with a Tmax of 100.4 F. COVID PCR was positive. Probably contracted during her recent hospitalization. Chest x-ray showing cardiomegaly and pulmonary vascular congestion. No obvious focal consolidations. NT proBNP elevated 2200. CBC: WBC count 6.8, hemoglobin 9.8, hematocrit 30.7, platelets 251. CMP: Sodium 136, potassium 4.4, chloride 106, serum bicarb 21, BUN 19, creatinine 1.21, glucose 161. LFTs unremarkable. Troponin 0.02. NT proBNP as reported above. EKG: Sinus arrhythmia, rate 81 bpm, no obvious acute ischemic changes. Patient is admitted to the general medical floor. She is alert and oriented without signs of CO2 narcosis. Has been impulsive, and has a sitter at the bedside. She is on 2 L/min nasal cannula, not in any acute distress. She denies any home O2 use. She does have history of COPD and former tobacco dependence. She is unsure of her prescribed inhalers. Not currently willing to elaborate on any of her symptoms. She states that she had a "cold". Denies missing any doses of Eliquis. Denies chest pain, heart palpitations, orthopnea, lower extremity swelling. Current vitals: Temperature 99.8 F, heart rate 89 bpm, blood pressure 145/66 mmHg, respiratory rate 22, SpO2 93% on 2 L/min nasal cannula. The patient is seen today October 19, 2024 in follow-up on the regular medical floor. She is currently sitting up in a chair. Awake and alert in no acute distress. Maintaining good O2 saturations in the 90s on 3 L/min per nasal cannula. She is feeling a bit better today compared to yesterday. Glucose 454. She remains on Symbicort, Spiriva, albuterol. Remains on IV Solu-Medrol. Anticoagulated with Eliquis. She remains on IV diuretics. No accurate DANIEL. The patient is seen today October 20, 2024 in follow-up on the regular medical floor. She is awake and alert in no acute distress. Sitting up in a chair at the bedside. Denies any worsening shortness of breath, cough or congestion. Maintaining good O2 saturations in the 90s on room air. She is afebrile. Hemodynamically stable. Improvement. There is mild cardiomegaly with mild pulmonary vascular congestion. Left basilar patchy opacity noted. White count 6.0. Hemoglobin 11.0. Platelets 283. Sodium 137. Potassium 5.3. Bicarb 29. BUN 42. Creatinine 1.40. Glucose 249. She is continued on Symbicort, Spiriva and albuterol, Solu-Medrol. Anticoagulated with Eliquis. Objective - Vital Signs Vital signs: Vital Signs Temp 97.5 F L 10/20/24 08:00 Pulse 55 L 10/20/24 08:00 Resp 17 10/20/24 08:00 BP 132/75 10/20/24 08:00 Pulse Ox 96 10/20/24 08:00 FiO2 Intake & Output 10/19/24 10/20/24 10/20/24 18:59 06:59 18:59 Intake Total 600 Balance 600 Intake: Oral 600 Other: # Voids 3 2 - Exam GENERAL EXAM: Alert, 64-year-old female, obese, on room air, up in a chair, comfortable in no apparent distress. HEAD: Normocephalic and atraumatic EYES: Normal reaction of pupils, equal size. NOSE: Clear with pink turbinates. THROAT: No erythema or exudates. NECK: No masses, no JVD. CHEST: No chest wall deformity. LUNGS: Equal air entry with bilateral rhonchi and faint expiratory wheezes heard anteriorly. CVS: S1 and S2 normal with systolic murmur, regular rhythm. No other extra heart sounds ABDOMEN: No hepatosplenomegaly, active bowel sounds, no guarding or rigidity. SPINE: No scoliosis or deformity SKIN: No rashes CENTRAL NERVOUS SYSTEM: No focal deficits, tone is normal in all 4 extremities. EXTREMITIES: There is no peripheral edema, clubbing, or cyanosis. Peripheral pulses are intact. - Labs CBC & Chem 7: 10/20/24 06:41 10/20/24 06:41 Labs: Abnormal Lab Results - Last 24 Hours (Table) 10/19/24 10/19/24 10/20/24 Range/Units 16:54 19:07 01:54 RBC (3.80-5.40) m/uL Hgb (11.4-16.0) gm/dL Lymphocytes # (1.0-4.8) k/uL Potassium (3.5-5.1) mmol/L BUN (7-17) mg/dL Creatinine (0.52-1.04) mg/dL Glucose (74-99) mg/dL POC Glucose (mg/dL) 447 H 441 H 283 H (70-110) mg/dL 10/20/24 10/20/24 10/20/24 Range/Units 06:07 06:41 06:41 RBC 3.77 L (3.80-5.40) m/uL Hgb 11.0 L (11.4-16.0) gm/dL Lymphocytes # 0.8 L (1.0-4.8) k/uL Potassium 5.3 H (3.5-5.1) mmol/L BUN 42 H (7-17) mg/dL Creatinine 1.40 H (0.52-1.04) mg/dL Glucose 249 H (74-99) mg/dL POC Glucose (mg/dL) 265 H (70-110) mg/dL 10/20/24 Range/Units 11:31 RBC (3.80-5.40) m/uL Hgb (11.4-16.0) gm/dL Lymphocytes # (1.0-4.8) k/uL Potassium (3.5-5.1) mmol/L BUN (7-17) mg/dL Creatinine (0.52-1.04) mg/dL Glucose (74-99) mg/dL POC Glucose (mg/dL) 319 H (70-110) mg/dL Assessment and Plan Assessment: Acute hypoxemic respiratory failure, secondary to a combination of acute COPD exacerbation, acute COVID-19 infection, and likely exacerbation of diastolic congestive heart failure. Chest x-ray showing cardiomegaly and pulmonary vascular congestion. No obvious focal consolidations. NT proBNP elevated 2200. Acute COVID-19 infection History of moderate to severe aortic stenosis with subaortic membrane History of atrial fibrillation status post EDUARDA and successful cardioversion on 10/13/2024, currently sinus arrhythmia Diabetes mellitus, insulin-dependent, with steroid-induced hyperglycemia History of hyperlipidemia Hypertension Morbid obesity, with a BMI of 41.2 kg/m COPD Former tobacco dependence History of schizophrenia Plan: The patient was seen and evaluated Chest x-ray, labs and medications reviewed Solu-Medrol to prednisone taper Stable and on room air Cleared for discharge from the pulmonary standpoint We will continue to follow I have personally seen and examined the patient, performed the documentation and the assessment and plan as written. Number of minutes spent on the visit: 10 Dictation was produced using [employer] dictation software. Please excuse any grammatical, word or spelling errors.
[2024-10-20 16:49] LABS: Glucose,Whole Blood 366 mg/dL (70-110)
[2024-10-20 20:26] LABS: Glucose,Whole Blood 236 mg/dL (70-110)
[2024-10-21 02:27] LABS: Glucose,Whole Blood 178 mg/dL (70-110)
[2024-10-21 06:35] LABS: Glucose,Whole Blood 247 mg/dL (70-110)
[2024-10-21 08:10] LABS: Basophils % (A) 1 %; Eosinophils % (A) 0 %; HCT 32.8 % (34.0-46.0); HGB 10.6 gm/dL (11.4-16.0); Hypochromasia Slight; Lymphocytes % (A) 25 %; MCH 29.2 pg (25.0-35.0); MCHC 32.3 g/dL (31.0-37.0); MCV 90.5 fL (80.0-100.0); Mean Platelet Volume 7.9; Monocytes # (A) 0.6 k/uL (0-1.0); Monocytes % (A) 16 %; Neutrophils # (A) 2.1 k/uL (1.3-7.7); Neutrophils % (A) 55 %; Platelet Count 233 k/uL (150-450); RBC 3.63 m/uL (3.80-5.40); RDW 14.8 % (11.5-15.5); WBC 3.9 k/uL (3.8-10.6)
[2024-10-21 08:27] LABS: African American GFR (CKD) 52 (>60 ml/min/1.73 sqM); Anion Gap 8 mmol/L; Blood Urea Nitrogen 34 mg/dL (7-17); Calcium 8.7 mg/dL (8.4-10.2); Carbon Dioxide 27 mmol/L (22-30); Chloride 99 mmol/L (98-107); Glucose 235 mg/dL (74-99); Non-African American GFR(CKD) 45 (>60 ml/min/1.73 sqM); Potassium 4.4 mmol/L (3.5-5.1); Sodium 134 mmol/L (137-145)
[2024-10-21] MEDS: predniSONE 10 MG TAB PO SCH (08:29)
[2024-10-21] MEDS ORDERED: FUROSEMIDE 40 MG TAB PO SCH (09:00)
[2024-10-21 09:10] VITALS: RESP 20
[2024-10-21] MEDS: cloZAPine 25 MG TAB PO SCH (11:03)
[2024-10-21] MEDS: ATORVASTATIN 10 MG TAB PO SCH (11:03)
[2024-10-21] MEDS: FERROUS SULFATE 325 MG TAB PO SCH (11:04)
[2024-10-21] MEDS: CHOLECALCIFEROL 25 MCG (1000 IU) TABLET PO SCH (11:04)
[2024-10-21] MEDS: DIVALPROEX ER 500 MG TAB.ER.24H PO SCH (11:04)
[2024-10-21] MEDS: FENOFIBRATE 160 MG TAB PO SCH (11:04)
[2024-10-21] MEDS: cloZAPine 100 MG TAB PO SCH (11:04)
[2024-10-21] MEDS: ALPRAZolam 0.5 MG TAB PO PRN (11:18)
[2024-10-21 11:41] LABS: Glucose,Whole Blood 351 mg/dL (70-110)
--- NOTE | 2024-10-21 14:29 | P.PN ---
Subjective Progress Note Date: 10/21/24 Patient is a 64-year-old female past medical history significant for schizophrenia, COPD, former tobacco dependence, atrial fibrillation, diabetes mellitus, obesity. Of note, patient recently admitted back 10/12/2024 with new onset A-fib. On 10/13/2024 underwent EDUARDA and successful cardioversion of A-fib to sinus mechanism with 200 J once. Patient is known to have moderate to severe aortic stenosis with subaortic membrane. On discharge, patient was continued on Eliquis. Yesterday afternoon, patient was brought in with her public guardian. Patient was noted to have a persistent mostly nonproductive cough, wheezing and dyspnea that started the day prior. Patient was also noted to be febrile, with a Tmax of 100.4 F. COVID PCR was positive. Probably contracted during her recent hospitalization. Chest x-ray showing cardiomegaly and pulmonary vascular congestion. No obvious focal consolidations. NT proBNP elevated 2200. CBC: WBC count 6.8, hemoglobin 9.8, hematocrit 30.7, platelets 251. CMP: Sodium 136, potassium 4.4, chloride 106, serum bicarb 21, BUN 19, creatinine 1.21, glucose 161. LFTs unremarkable. Troponin 0.02. NT proBNP as reported above. EKG: Sinus arrhythmia, rate 81 bpm, no obvious acute ischemic changes. Patient is admitted to the general medical floor. She is alert and oriented without signs of CO2 narcosis. Has been impulsive, and has a sitter at the bedside. She is on 2 L/min nasal cannula, not in any acute distress. She denies any home O2 use. She does have history of COPD and former tobacco dependence. She is unsure of her prescribed inhalers. Not currently willing to elaborate on any of her symptoms. She states that she had a "cold". Denies missing any doses of Eliquis. Denies chest pain, heart palpitations, orthopnea, lower extremity swelling. Current vitals: Temperature 99.8 F, heart rate 89 bpm, blood pressure 145/66 mmHg, respiratory rate 22, SpO2 93% on 2 L/min nasal cannula. The patient is seen today October 19, 2024 in follow-up on the regular medical floor. She is currently sitting up in a chair. Awake and alert in no acute distress. Maintaining good O2 saturations in the 90s on 3 L/min per nasal cannula. She is feeling a bit better today compared to yesterday. Glucose 454. She remains on Symbicort, Spiriva, albuterol. Remains on IV Solu-Medrol. Anticoagulated with Eliquis. She remains on IV diuretics. No accurate DANIEL. The patient is seen today October 20, 2024 in follow-up on the regular medical floor. She is awake and alert in no acute distress. Sitting up in a chair at the bedside. Denies any worsening shortness of breath, cough or congestion. Maintaining good O2 saturations in the 90s on room air. She is afebrile. Hemodynamically stable. Improvement. There is mild cardiomegaly with mild pulmonary vascular congestion. Left basilar patchy opacity noted. White count 6.0. Hemoglobin 11.0. Platelets 283. Sodium 137. Potassium 5.3. Bicarb 29. BUN 42. Creatinine 1.40. Glucose 249. She is continued on Symbicort, Spiriva and albuterol, Solu-Medrol. Anticoagulated with Eliquis. The patient is seen today October 21, 2024 in follow-up on the regular medical floor. She is currently sitting up in a chair at the bedside. Awake and alert in no acute distress. Containing good O2 saturations in the mid 90s on room air. She has been afebrile. Hemodynamically stable. White count 3.9. Hemoglobin 10.6. Platelets 233. Sodium 134. Potassium 4.4. Bicarb 27. BUN 34. Creatinine 1.27. Glucose 235. He remains on Symbicort, Spiriva, prednisone and albuterol. Anticoagulated with Eliquis. Objective - Vital Signs Vital signs: Vital Signs Temp 98.6 F 10/21/24 07:25 Pulse 70 10/21/24 07:25 Resp 20 10/21/24 07:25 BP 121/69 10/21/24 07:25 Pulse Ox 96 10/21/24 07:25 FiO2 Intake & Output 10/20/24 10/21/24 10/21/24 18:59 06:59 18:59 Intake Total 480 Balance 480 Intake: Oral 480 Other: Voiding Method Toilet Toilet # Voids 4 1 - Exam GENERAL EXAM: Alert, 64-year-old female, on room air, up in a chair, in no apparent distress. HEAD: Normocephalic and atraumatic EYES: Normal reaction of pupils, equal size. NOSE: Clear with pink turbinates. THROAT: No erythema or exudates. NECK: No masses, no JVD. CHEST: No chest wall deformity. LUNGS: Equal air entry with bilateral rhonchi and faint expiratory wheezes heard anteriorly. CVS: S1 and S2 normal with systolic murmur, regular rhythm. No other extra heart sounds ABDOMEN: No hepatosplenomegaly, active bowel sounds, no guarding or rigidity. SPINE: No scoliosis or deformity SKIN: No rashes CENTRAL NERVOUS SYSTEM: No focal deficits, tone is normal in all 4 extremities. EXTREMITIES: There is no peripheral edema, clubbing, or cyanosis. Peripheral pulses are intact. - Labs CBC & Chem 7: 10/21/24 07:08 10/21/24 07:08 Labs: Abnormal Lab Results - Last 24 Hours (Table) 10/20/24 10/20/24 10/21/24 Range/Units 16:47 20:25 02:26 RBC (3.80-5.40) m/uL Hgb (11.4-16.0) gm/dL Hct (34.0-46.0) % Sodium (137-145) mmol/L BUN (7-17) mg/dL Creatinine (0.52-1.04) mg/dL Glucose (74-99) mg/dL POC Glucose (mg/dL) 366 H 236 H 178 H (70-110) mg/dL 10/21/24 10/21/24 10/21/24 Range/Units 06:34 07:08 07:08 RBC 3.63 L (3.80-5.40) m/uL Hgb 10.6 L (11.4-16.0) gm/dL Hct 32.8 L (34.0-46.0) % Sodium 134 L (137-145) mmol/L BUN 34 H (7-17) mg/dL Creatinine 1.27 H (0.52-1.04) mg/dL Glucose 235 H (74-99) mg/dL POC Glucose (mg/dL) 247 H (70-110) mg/dL 10/21/24 Range/Units 11:39 RBC (3.80-5.40) m/uL Hgb (11.4-16.0) gm/dL Hct (34.0-46.0) % Sodium (137-145) mmol/L BUN (7-17) mg/dL Creatinine (0.52-1.04) mg/dL Glucose (74-99) mg/dL POC Glucose (mg/dL) 351 H (70-110) mg/dL Assessment and Plan Assessment: Acute hypoxemic respiratory failure, secondary to a combination of acute COPD exacerbation, acute COVID-19 infection, and likely exacerbation of diastolic congestive heart failure. Chest x-ray showing cardiomegaly and pulmonary vascular congestion. No obvious focal consolidations. NT proBNP elevated 2200. Recovered and on room air Acute COVID-19 infection History of moderate to severe aortic stenosis with subaortic membrane History of atrial fibrillation status post EDUARDA and successful cardioversion on 10/13/2024, currently sinus arrhythmia Diabetes mellitus, insulin-dependent, with steroid-induced hyperglycemia History of hyperlipidemia Hypertension Morbid obesity, with a BMI of 41.2 kg/m COPD Former tobacco dependence History of schizophrenia Plan: The patient was seen and evaluated Labs and medications reviewed Stable and on room air Cleared for discharge I have personally seen and examined the patient, performed the documentation and the assessment and plan as written. Number of minutes spent on the visit: 10 Dictation was produced using [employer] dictation software. Please excuse any grammatical, word or spelling errors.
[2024-10-21 14:40] VITALS: BP 134/66; PULSE 86; TEMP 98.4
--- NOTE | 2024-10-21 15:58 | P.DS ---
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 Patient continued on home inhalers, continued on prednisone for 3 more days at discharge. Continue home meds Hospital course: This is a pleasant 64 years old female with past medical history of multiple medical problems as below. Patient presents because of worsening dyspnea for several days associated with coughing. No significant chest pain No other GI or symptoms like dysuria or urgency or diarrhea. No headache dizziness weakness or numbness. Patient also denies smoking alcohol or illicit drugs She is not on oxygen at home She confirms she takes Eliquis at home for A-fib which is resumed Patient also was agitated overnight and Seroquel and Ativan 1 mg was provided, currently she is sleeping and calm but there is sitter at bedside for safety Patient has low-grade fever of 100.4 on admission, mildly tachypneic and she is saturating 95% on 2 L, currently this is not worse looks better. BMP and liver enzymes are unremarkable except for creatinine slightly elevated at 1.2. Hemoglobin 9.8 Rest of CBC, BMP and liver enzymes and INR were unremarkable Troponin slightly elevated 0.024 which is still within the reference range proBNP is elevated to 200 Chest x-ray showing cardiomegaly with pulmonary vascular congestion, I reviewed the chest x-ray by myself and agree EKG showing sinus rhythm at 81 proBNP is elevated to 200 Test for COVID came back positive well for influenza came back negative about Valproic acid level is 32.7 10/19 Patient reports improvement in her breathing No chest pain She has good appetite and she has good bowel movement She is sitting in chair not in distress For fever on admission was subsided. Currently she is not on antibiotics because we think her fever is related to her viral infection with COVID Patient remains on IV Solu-Medrol but dose lowered today to 40 mg and IV Lasix 40 mg once daily. Also she is on Eliquis continue since home for her history of A-fib Repeat chest x-ray in the morning 10/20 Patient breathing improving slowly and gradually She still have cough controlled with cough medicine She had chest pain earlier improved with aspirin, currently she is chest pain- free. She has no diarrhea and she has good appetite Creatinine went up little bit 1.4 and potassium went up 4.8 up to 5.3. Patient looks little dehydrated. We will hold her IV Lasix 40 mg daily for now. She remains on home dose of Eliquis and IV Solu-Medrol 40 mg 10/21 Patient remains on room air, symptoms are improved. Vital stable. Potassium improved. Creatinine trending down. Continue on prednisone for 3 more days at discharge. Okay to discharge per pulmonary. Patient's home medication resumed at discharge. Patient's condition vital stable at discharge. Discharge plan discussed with patient's friend/decision-maker. Please refer to med rec and assessment plan for further details PHYSICAL EXAMINATION: GENERAL: The patient is A&O x3, NAD HEENT: EOMI, Sclerae anicteric, Moist Mucous membranes Neck: Supple, Non tender, No JVD PULMONARY: Equal breath souds B/L, No wheezing, No crackles. CARDIOVASCULAR: S1, S2 present. No murmurs, rubs, or gallops. ABDOMEN: Soft, nontender, nondistended, normoactive bowel sounds. No guarding or rebound tenderness. MUSCULOSKELETAL: No edema, No cyanosis. No clubbing. Normal ROM. Intact peripheral pulses. NEUROLOGICAL: CN 2-12 grossly intact. No FND SKIN: No rashes. Dictation was produced using [employer] ([employer] dictation software. please excuse any grammatical, word or spelling errors. Patient Condition at Discharge: Stable Plan - Discharge Summary Discharge Rx Participant: No New Discharge Prescriptions: New predniSONE 30 mg PO DAILY #9 tab guaiFENesin SYRUP 100MG/5ML [Robitussin] 200 mg PO Q6HR PRN #200 ml PRN Reason: Cough Continue Tirzepatide [Mounjaro] 7.5 mg SQ Q7D metFORMIN HCL [Glucophage] 500 mg PO W/BRKFST metFORMIN HCL [Glucophage] 1,000 mg PO W/SUPPER Montelukast [Singulair] 10 mg PO HS Fenofibrate,Micronized [Fenofibrate] 134 mg PO DAILY Cinacalcet [Sensipar] 30 mg PO DIRECTED Atorvastatin [Lipitor] 10 mg PO DAILY Cholecalciferol (Vitamin D3) [Vitamin D3 (50 Mcg = 2000 Iu)] 50 mcg PO DAILY Apixaban [Eliquis] 5 mg PO BID #60 tab Ferrous Sulfate [Feosol] 325 mg PO DAILY #30 tab Insulin Aspart (Niacinamide) [Fiasp 100 Unit/ml Vial] See Protocol SQ AC-TID Ipratropium-Albuterol Nebulize [Duoneb 0.5 mg-3 mg/3 ml Soln] 3 ml INHALATION RT-Q6H PRN PRN Reason: Shortness Of Breath Fluticasone/Umeclidin/Vilanter [Trelegy Ellipta 100-62.5-25] 1 puff INHALATION RT-DAILY traZODone HCL [Desyrel] 100 mg PO HS Famotidine [Pepcid] 20 mg PO BID Divalproex ER [Depakote ER] 500 mg PO BID cloZAPine [Clozaril] 50 mg PO DAILY cloZAPine [Clozaril] 100 mg PO TID Insulin Glargine,Hum.rec.anlog [Basaglar Kwikpen U-100] 50 unit SQ BID Metoprolol Tartrate [Lopressor] 25 mg PO TID #90 tab Discharge Medication List Atorvastatin [Lipitor] 10 mg PO DAILY 10/12/24 [History] Cholecalciferol (Vitamin D3) [Vitamin D3 (50 Mcg = 2000 Iu)] 50 mcg PO DAILY 10/12/24 [History] Cinacalcet [Sensipar] 30 mg PO DIRECTED 10/12/24 [History] Divalproex ER [Depakote ER] 500 mg PO BID 10/12/24 [History] Famotidine [Pepcid] 20 mg PO BID 10/12/24 [History] Fenofibrate,Micronized [Fenofibrate] 134 mg PO DAILY 10/12/24 [History] Fluticasone/Umeclidin/Vilanter [Trelegy Ellipta 100-62.5-25] 1 puff INHALATION R T-DAILY 10/12/24 [History] Insulin Aspart (Niacinamide) [Fiasp 100 Unit/ml Vial] See Protocol SQ AC-TID 10/12/24 [History] Insulin Glargine,Hum.rec.anlog [Basaglar Kwikpen U-100] 50 unit SQ BID 10/12/24 [History] Ipratropium-Albuterol Nebulize [Duoneb 0.5 mg-3 mg/3 ml Soln] 3 ml INHALATION RT-Q6H PRN 10/12/24 [History] Montelukast [Singulair] 10 mg PO HS 10/12/24 [History] Tirzepatide [Mounjaro] 7.5 mg SQ Q7D 10/12/24 [History] cloZAPine [Clozaril] 50 mg PO DAILY 10/12/24 [History] cloZAPine [Clozaril] 100 mg PO TID 10/12/24 [History] metFORMIN HCL [Glucophage] 1,000 mg PO W/SUPPER 10/12/24 [History] metFORMIN HCL [Glucophage] 500 mg PO W/BRKFST 10/12/24 [History] traZODone HCL [Desyrel] 100 mg PO HS 10/12/24 [History] Apixaban [Eliquis] 5 mg PO BID #60 tab 10/14/24 [Rx] Ferrous Sulfate [Feosol] 325 mg PO DAILY #30 tab 10/14/24 [Rx] Metoprolol Tartrate [Lopressor] 25 mg PO TID #90 tab 10/14/24 [Rx] guaiFENesin SYRUP 100MG/5ML [Robitussin] 200 mg PO Q6HR PRN #200 ml 10/21/24 [Rx] predniSONE 30 mg PO DAILY #9 tab 10/21/24 [Rx] Follow up Appointment(s)/Referral(s): Rico Betts DO [Primary Care Provider] - 1-2 days Discharge Disposition: HOME SELF-CARE
[2024-10-21 16:25] LABS: Glucose,Whole Blood 317 mg/dL (70-110)
[2024-10-21] MEDS ORDERED: MONTELUKAST 10 MG TAB PO SCH (21:00)
[2024-10-21] MEDS ORDERED: traZODone HCL 100 MG TAB PO SCH (21:00)
[2024-10-22] MEDS ORDERED: CINACALCET 30 MG TAB PO SCH (09:00)
== END 2024-10-21 17:32 | disposition home or self-care (01) | DRG 177 ==
LOC: EC 15:17 → 4SSUR 17:19 → OBSVTOIN 10-19 09:58
PROVIDERS: ADMIT Hospitalist; ATTEND Hospitalist
DX: U07.1 COVID-19 (principal); I50.33 Acute on chronic diastolic (congestive) heart failure; J96.01 Acute respiratory failure with hypoxia; Q24.4 Congenital subaortic stenosis; F20.0 Paranoid schizophrenia; Z68.41 Body mass index [BMI] 40.0-44.9, adult; I11.0 Hypertensive heart disease with heart failure; J44.89 Other specified chronic obstructive pulmonary disease; E11.65 Type 2 diabetes mellitus with hyperglycemia; E66.01 Morbid (severe) obesity due to excess calories; E78.5 Hyperlipidemia, unspecified; I35.0 Nonrheumatic aortic (valve) stenosis; I48.91 Unspecified atrial fibrillation; T38.0X5A Adverse effect of glucocorticoids and synthetic analogues, initial encounter; Z79.01 Long term (current) use of anticoagulants; Z79.51 Long term (current) use of inhaled steroids; Z79.4 Long term (current) use of insulin; Z79.84 Long term (current) use of oral hypoglycemic drugs; Z79.85 Long-term (current) use of injectable non-insulin antidiabetic drugs; Z79.899 Other long term (current) drug therapy; Z87.891 Personal history of nicotine dependence
CPT/HCPCS: 36415; 71045; 71046; 80048; 80053; 80164; 83036; 83615; 83880; 84145; 84484; 85025; 85610; 85730; 86140; 87636; 93005; 94640; 96374; 99285